=== PATIENT | female | born 1945 | race Caucasian/White ===

== ENCOUNTER → 2018-04-03 11:01 | Outpatient (BNVA) | payer MEDICARE, BC, SELFPAY | PROVIDERS: Visit Provider Orthopaedic Surgery | DX: M17.11 Unilateral primary osteoarthritis, right knee (principal); M25.462 Effusion, left knee | CPT/HCPCS: 20610; 99211; 99213; J1030; J7325 ==

== ENCOUNTER 2018-04-03 15:18 | Outpatient (REF) | payer MEDICARE, BC, SELFPAY | END 2018-04-03 15:38 | LOC: LBN 15:18 | PROVIDERS: PCP Family Medicine; Visit Provider Orthopaedic Surgery | DX: M25.562 Pain in left knee (principal); M25.462 Effusion, left knee | CPT/HCPCS: 87070; 87205 ==

== ENCOUNTER 2018-04-11 00:40 | Outpatient (CLI) | payer MEDICARE, BC, SELFPAY ==
--- NOTE | 2018-04-11 13:00 | DI.DEXA_ITS ---
SYMPTOMS/DIAGNOSIS: MENOPAUSAL STATE, Z78.0 DEXA SCAN: The scanogram reveals significant degenerative changes involving the lower lumbar spine. 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 No fracture is identified. For the left forearm a T score of -2.6 and a Z score of -0.4 indicate osteopenia and an increased fracture risk. For the left hip a T score of 0.1 and a Z score of 1.7 are within the normal range and represent a -1.8% interval decrease in mineralization when compared with the previous study of 09/11/08. For the lumbar spine a T score of 1.5 and a Z score of 3.7 are within the normal range and represent a +0.7% increase in mineralization when compared with the prior study of 09/11/08.
== END 2018-04-11 01:00 ==
PROVIDERS: PCP Family Medicine; Visit Provider Family Medicine
DX: M85.88 Other specified disorders of bone density and structure, other site (principal); Z78.0 Asymptomatic menopausal state
CPT/HCPCS: 77080

== ENCOUNTER → 2018-05-12 10:25 | Outpatient (BNVA) | payer MEDICARE, BC, SELFPAY | PROVIDERS: PCP Family Medicine; Referring Provider Family Medicine; Visit Provider Orthopaedic Surgery | DX: M25.462 Effusion, left knee (principal) | CPT/HCPCS: 20610; 99211; 99213 ==

== ENCOUNTER 2018-06-01 14:50 | Outpatient (REF) | payer MEDICARE, BC, SELFPAY ==
[2018-06-01 15:25] LABS: TSH (W/Ref FT4) 2.85 uIU/mL (0.358-3.74)
== END 2018-06-01 15:10 ==
LOC: NCHCN 14:50
PROVIDERS: PCP Family Medicine; Visit Provider Family Medicine
DX: E03.9 Hypothyroidism, unspecified (principal)
CPT/HCPCS: 84443

== ENCOUNTER 2018-06-29 12:00 | Outpatient (REF) | payer MEDICARE, BC, SELFPAY ==
[2018-06-29 18:44] LABS: Hemoglobin A1C 5.6 % (4.5-6.2)
[2018-07-03 09:29] LABS: Hepatitis C Ab w Rflx HCV PCR Negative (NEGAT)
== END 2018-06-29 12:20 ==
LOC: NCHCN 12:00
PROVIDERS: PCP Family Medicine; Visit Provider Family Medicine
DX: R73.01 Impaired fasting glucose (principal); Z11.59 Encounter for screening for other viral diseases
CPT/HCPCS: 86803; 83036

== ENCOUNTER 2018-08-21 14:47 | Outpatient (CLI) | payer MEDICARE, BC, SELFPAY ==
--- NOTE | 2018-08-21 09:47 | DI.RAD_ITS ---
SYMPTOM/DIAGNOSIS: COUGH, RO5 PA AND LATERAL CHEST: Comparison is made with 06/23/16. The heart size is normal. There are patchy densities seen in the right middle lobe suspicious for a pneumonia. No effusions are seen. The left lung appears clear. Degenerative changes are seen in the spine. IMPRESSION: Right middle lobe infiltrate.
== END 2018-08-21 15:07 ==
PROVIDERS: PCP Family Medicine; Visit Provider Family Medicine
DX: R05 Cough (principal)
CPT/HCPCS: 71046

== ENCOUNTER 2018-09-18 00:45 | Outpatient (CLI) | payer MEDICARE, BC, SELFPAY ==
--- NOTE | 2018-09-18 10:30 | DI.RAD_ITS ---
SYMPTOMS/DIAGNOSIS: F/U PNEUMONIA, J18.9 PA AND LATERAL CHEST: Comparison is made with [id number]. There are mild streaky densities seen in the right middle lobe with some improvement when compared with the previous exam. No new abnormalities are seen. There is no evidence of effusion. IMPRESSION: Some interval improvement of right middle lobe pneumonia.
== END 2018-09-18 01:05 ==
PROVIDERS: PCP Family Medicine; Visit Provider Family Medicine
DX: J18.9 Pneumonia, unspecified organism (principal)
CPT/HCPCS: 71046

== ENCOUNTER → 2018-10-03 10:45 | Outpatient (BNVA) | payer MEDICARE, BC, SELFPAY | PROVIDERS: PCP Family Medicine; Referring Provider Family Medicine; Visit Provider Orthopaedic Surgery | DX: M17.11 Unilateral primary osteoarthritis, right knee (principal) | CPT/HCPCS: 20610; 99211; 99212; J7325 ==

== ENCOUNTER 2018-10-16 00:42 | Outpatient (CLI) | payer MEDICARE, BC, SELFPAY ==
--- NOTE | 2018-10-16 11:00 | DI.RAD_ITS ---
SYMPTOMS/DIAGNOSIS: PNEUMONIA, J18.9 PA AND LATERAL CHEST: Comparison is made with [id number]. The previously noted right middle lobe infiltrate is no longer visible. The lungs appear clear. No new abnormalities are seen. Degenerative changes are again noted in the spine. IMPRESSION: Resolution of right middle lobe infiltrate.
== END 2018-10-16 01:02 ==
PROVIDERS: PCP Family Medicine; Visit Provider Family Medicine
DX: J18.9 Pneumonia, unspecified organism (principal)
CPT/HCPCS: 71046

== ENCOUNTER 2018-11-09 02:08 | Outpatient (CLI) | payer MEDICARE, BC, SELFPAY ==
[2018-11-09 11:14] LABS: Ferritin 27 ng/mL (8-388)
== END 2018-11-09 02:28 ==
PROVIDERS: PCP Family Medicine; Visit Provider Internal Medicine
DX: M25.50 Pain in unspecified joint (principal)
CPT/HCPCS: 36415; 82728

== ENCOUNTER → 2019-04-09 13:23 | Outpatient (BNVA) | payer MEDICARE, BC, SELFPAY | PROVIDERS: PCP Family Medicine; Referring Provider Family Medicine; Visit Provider Student in an Organized Health Care Education/Training Program | DX: M17.11 Unilateral primary osteoarthritis, right knee (principal); M25.462 Effusion, left knee | CPT/HCPCS: 99213 ==

== ENCOUNTER 2019-04-23 13:25 | Outpatient (REF) | payer MEDICARE, BC, SELFPAY ==
[2019-04-23 14:01] LABS: HCT 42.9 % (36.0-46.0); HGB 14.1 g/dL (12.0-15.5); Mean Corp. HGB Concentration 32.9 g/dL (32.0-36.0); Mean Corpuscular Hemoglobin 31.1 pg (27.0-33.0); Mean Corpuscular Volume 94.5 fL (80-95); Platelet Count 345 x1000/uL (130-400); RBC 4.54 m/cumm (4.00-5.20); RBC Distribution Width 13.5 % (11.7-14.6)
[2019-04-23 14:16] LABS: Glucose 89 mg/dL (70-100); TSH (W/Ref FT4) 3.73 uIU/mL (0.36-3.74)
== END 2019-04-23 13:45 ==
LOC: NCHCN 13:25
PROVIDERS: PCP Family Medicine; Visit Provider Family Medicine
DX: E03.9 Hypothyroidism, unspecified (principal); R73.09 Other abnormal glucose
CPT/HCPCS: 82947; 85027; 84443

== ENCOUNTER 2019-06-14 08:49 | Outpatient (CLI) | payer MEDICARE, BC, SELFPAY ==
--- NOTE | 2019-06-14 08:40 | HPE_ITS ---
Date of service: 06/14/19 Assessment and Plan Assessment and plan (1) Bursitis, prepatellar, left: Status: Acute Assessment and plan: Left prepatellar bursectomy. Details of surgery were discussed with patient as well as risks and pertinent anatomy. All questions were answered. History of Present Illness History of Present Illness Chief Complaint: Left knee mass Narrative: Marychuy is a 73-year-old female who comes in today for a preop history and physical for an excision of a prepatellar bursa of the left knee. She has been dealing with this for quite some time, and it does get in the way of her activities. She has had it aspirated by Dr. Humphrey twice, but it continues to return. It makes her have difficulty with kneeling. Overall she is happy with the appearance of her knee as well because of the swelling. Since she has failed conservative treatment with aspirations, and in fact has ruptured the bursal sac on her own by kneeling, it continues to return. She was offered an excision of the prepatellar bursa on her left knee, and she is anxious to proceed. Pertinent Surgical Information Marychuy has a history of ROBINSON and does use a c-pap machine. She also has a history of hypothyroidism for which she recieves hormone repla cement with levothyroxine. Patient denies history of hypertension, CVA, DC, angina, asthma, COPD, renal or liver disorders, hepatitis, bleeding disorders, diabetes, or immune disorders. No complications from anesthesia. Review of Systems Constitutional Constitutional: Denies fever(s) ENT Ears, Nose, Mouth, and Throat: Denies dizziness and Denies sore throat Cardiovascular Cardiovascular: Denies chest pain, Denies palpitations and Denies dyspnea Respiratory Respiratory: Denies cough and Denies dyspnea Gastrointestinal Gastrointestinal: Denies abdominal pain, Denies melena, Denies hematochezia, Denies diarrhea, Denies nausea and Denies vomiting Genitourinary Genitourinary: Denies hematuria and Denies dysuria Neurologic Neurologic: Denies dizziness Endocrine Endocrine: Denies palpitations [facility] Medical History (Updated 06/14/19 @ 15:57 by ERIK Blount) Acne vulgaris ADHD Anxiety Arthritis of both hands Chronic cough Depression Eczema Fibrocystic breast changes Fibromyalgia GERD (gastroesophageal reflux disease) History of cystocele (Acute) Hoarseness Hx of ovarian cancer 1983 Hypothyroidism Impaired fasting glucose Sciatica Surgical History History of arthroscopy of right knee (Acute) History of cataract extraction (Chronic) History of hysterectomy (Chronic) Right wrist fracture (Acute) s/p 3 surgeries including external fixation, and ORIF. Social History Smoking/Tobacco Use Status: Never Alcohol Intake: current Alcohol Intake frequency: 3 or more drinks per day Alcohol type: wine Drug use: Never Substance use type: does not use Current gender identity: female Do you feel safe at home: Yes Do you feel safe in your relationship?: Yes Meds Home Medications and Allergies Home Medications Medication Instructions Recorded Confirmed Type acyclovir 1 ea TOPICAL PRN 11/16/13 06/14/19 History amitriptyline 1 - 2 tab PO HS 11/16/13 06/14/19 History cetirizine [Zyrtec] 10 mg PO DAILY PRN 11/16/13 06/14/19 History duloxetine [Cymbalta] 20 mg PO DAILY 11/16/13 06/14/19 History fluticasone propionate 2 spry NS DAILY PRN 11/16/13 06/14/19 History glucosamine reddy 2KCl-chondroit 1 cap PO BID 11/16/13 06/14/19 History [Glucosamine & Chondroitin Cap] levothyroxine 75 mcg PO DAILY 11/16/13 06/14/19 History multivitamin 1 tab PO DAILY 11/16/13 06/14/19 History omega-3 fatty acids [Fish Oil] 1 tab PO BID 11/16/13 06/14/19 History omeprazole 20 mg PO DAILY 11/16/13 06/14/19 History calcium citrate-vitamin D3 1 tab PO DAILY 01/03/15 06/14/19 History [Citracal + D Maximum Caplet] ibuprofen [Advil Liqui-Gels] 1 - 2 cap PO PRN PRN 01/03/15 06/14/19 History lactobacillus combo no.11 1 ea PO DAILY cap.sprink 04/28/17 06/14/19 History [Probiotic] ascorbate calcium (vitamin C) 500 500 mg PO DAILY 04/09/19 06/14/19 History mg tablet ropinirole 2 mg tablet 2 mg PO HS 04/09/19 06/14/19 History Eucerin,Urea Cream, Salycilic Acid 1 appful TOPICAL PRN PRN 06/14/19 History (Compound Cream) ferrous sulfate 27 mg iron tablet 65 mg PO DAILY tab 06/14/19 06/14/19 History Allergies Allergy/AdvReac Type Severity Reaction Status Date / Time latex Allergy Severe Anaphylaxsi Unverified 06/14/19 09:22 s Exam [facility] Head: normocephalic and atraumatic General nose exam: no nasal discharge Throat: uvula midline and no uvular edema Other: soft palate rises symmetrically, no erythema Eyes Conjunctivae: conjunctivae normal Sclera: sclerae normal Pupils: PERRL Resp Effort & Inspection: normal respiratory effort Auscultation: clear to auscultation bilaterally and no wheezes Cardio Rate: regular rate Rhythm: regular rhythm Heart Sounds: S1 normal, S2 normal and no murmurs GI Palpation: soft, no hepatosplenomegaly and nontender Auscultation: normal bowel sounds
== END 2019-06-14 09:09 ==
PROVIDERS: PCP Family Medicine; Visit Provider Student in an Organized Health Care Education/Training Program
DX: M70.42 Prepatellar bursitis, left knee (principal); Z01.818 Encounter for other preprocedural examination
CPT/HCPCS: NC

== ENCOUNTER 2019-07-11 00:33 | Outpatient (CLI) | payer MEDICARE, BC, SELFPAY ==
--- NOTE | 2019-07-11 10:31 | DI.MAMMO_ITS ---
EXAM: MG MAMMO SCREENING CLINICAL HISTORY: SCREENING Z12.31. TECHNIQUE: Bilateral full field digital CC and MLO mammographic images were obtained with 3D tomosyn thesis and utilizing computer aided detection (CAD). COMPARISON: Available for comparison. FINDINGS: Masses/Architectural Distortion: There is a focal asymmetric density in the upper left breast seen on the mediolateral oblique view. No suspicious masses are seen in the right breast. Microcalcifications: No suspicious pleomorphic-type are seen. Skin Thickening/Nipple Retraction: None. IMPRESSION: 1. Asymmetric density in the upper left breast seen on the mediolateral oblique view. 2. Additional views of the left breast are requested. Ultrasound may be indicated at that time. BI-RADS Cat 0 - Assessment Incomplete: Need additional imaging evaluation Breast Density - Category C - Heterogeneously dense The mammogram demonstrates the patient's breast tissue is dense. Dense breast tissue is very common a nd is not abnormal but dense breast tissue can make it harder to find cancer on a mammogram. Also, de nse breast tissue may increase their breast cancer risk. This information about the [facility] was provided to the patient to raise their awareness. Use this report when you speak wi th the patient about their risks for breast cancer, which includes their family history. At that time , you may recommend for more screening tests (Ultrasound or MRI) as they might be useful based on the ir risk. A negative radiographic report should not delay biopsy if a dominant or clinically suspicious mass is present. Up to ten percent of cancers are not identified on mammography. A negative report may reinforce clinical impression. Adenosis and dense breasts may obscure an underlying neoplasm. False positive reports average 6 to 10%. Patient will receive a letter notifying them of these results.
== END 2019-07-11 00:53 ==
PROVIDERS: PCP Family Medicine; Visit Provider Family Medicine
DX: Z12.31 Encounter for screening mammogram for malignant neoplasm of breast (principal); R92.8 Other abnormal and inconclusive findings on diagnostic imaging of breast
CPT/HCPCS: 77063; 77067

== ENCOUNTER 2019-07-16 00:52 | Outpatient (CLI) | payer MEDICARE, BC, SELFPAY ==
--- NOTE | 2019-07-16 13:36 | DI.MAMMO_ITS ---
EXAM: MG MAMMO SCREEN CALL BACK UNI AND US BREAST LT LIMITED CLINICAL HISTORY: F/U ABNORMAL BREAST IMAGING ON MAMMO, ASYMMETRIC DENSITY UPPER LT BREAST ON MLO EW TECHNIQUE: Additional mammographic views of the left breast and left breast ultrasound performed us ing standard protocol. COMPARISON: No exams were available for comparison FINDINGS: Additional mammographic views of the left breast and left breast ultrasound are interpreted conjuncti on. These examinations were obtained to evaluate questionable area of asymmetric density seen on rec ent mammogram of July 11. Additional mammographic views show no evidence of a mass. Breast ult rasound shows no evidence of a mass or cyst in this region. IMPRESSION: No specific evidence of malignancy at this time. Follow-up unilateral left breast mammogram recommen ded in 6 months. Category 3, breast density category C.
== END 2019-07-16 01:12 ==
PROVIDERS: PCP Family Medicine; Visit Provider Family Medicine
DX: Z12.31 Encounter for screening mammogram for malignant neoplasm of breast (principal); R92.8 Other abnormal and inconclusive findings on diagnostic imaging of breast; N64.59 Other signs and symptoms in breast
CPT/HCPCS: 76642; 77063; 77067

== ENCOUNTER → 2019-07-19 09:12 | Outpatient (BNVA) | payer MEDICARE, BC, SELFPAY | PROVIDERS: PCP Family Medicine; Referring Provider Family Medicine; Visit Provider Student in an Organized Health Care Education/Training Program | DX: M70.62 Trochanteric bursitis, left hip (principal) | CPT/HCPCS: 20610; 99214; J1040 ==

== ENCOUNTER 2019-07-23 12:11 | Outpatient (REF) | payer MEDICARE, BC, SELFPAY ==
[2019-07-23 13:45] LABS: TSH (W/Ref FT4) 1.23 uIU/mL (0.36-3.74)
== END 2019-07-23 12:31 ==
LOC: NCHCN 12:11
PROVIDERS: PCP Family Medicine; Visit Provider Family Medicine
DX: E03.9 Hypothyroidism, unspecified (principal)
CPT/HCPCS: 84443

== ENCOUNTER 2020-01-14 01:38 | Outpatient (CLI) | payer MEDICARE, BC, SELFPAY ==
--- NOTE | 2020-01-14 | DI.MAMMO_ITS ---
EXAM: MG MAMMO DIAGNOSTIC UNI CLINICAL HISTORY: ABNL MAMMO, LT BREAST, 6-MO F/U, R92.8. TECHNIQUE: Craniocaudal and mediolateral oblique Full Field Digital Mammography views of the left br east with Computer Aided Diagnosis followed by Tomosynthesis. COMPARISON: Priors available for comparison. FINDINGS: Mammography/Tomosynthesis: Masses/Architectural Distortion: None seen. Microcalcifictions: No suspicious pleomorphic-type are seen. Skin Thickening/Nipple Retraction: None. IMPRESSION: 1. No evidence of malignancy is noted. 2. Unless there is more urgent need, follow-up screening mammography is recommended, as per [place] [employer] guidelines. 3. The findings were discussed with the patient on the date of the examination. BI-RADS Cat 1 - Negative Breast Density - Category C - Heterogeneously dense The mammogram demonstrates the patient's breast tissue is dense. Dense breast tissue is very common a nd is not abnormal but dense breast tissue can make it harder to find cancer on a mammogram. Also, de nse breast tissue may increase their breast cancer risk. This information about the result of the [facility] mogram report was provided to the patient to raise their awareness. Use this report when you speak wi th the patient about their risks for breast cancer, which includes their family history. At that time , you may recommend for more screening tests (Ultrasound or MRI) as they might be useful based on the ir risk. A negative radiographic report should not delay biopsy if a dominant or clinically suspicious mass is present. Up to ten percent of cancers are not identified on mammography. A negative report may reinforce clinical impression. Adenosis and dense breasts may obscure an underlying neoplasm. False positive reports average 6 to 10%. Patient will receive a letter notifying them of these results.
== END 2020-01-14 01:58 ==
PROVIDERS: PCP Family Medicine; Visit Provider Family Medicine
DX: R92.8 Other abnormal and inconclusive findings on diagnostic imaging of breast (principal); R92.2 Inconclusive mammogram
CPT/HCPCS: 77061; 77065; G0279

== ENCOUNTER 2020-03-27 15:08 | Outpatient (REF) | payer MEDICARE, BC, SELFPAY ==
[2020-03-27 18:19] LABS: HCT 42.1 % (36.0-46.0); MCHC 33.3 % (32.0-36.0); MCV 93.1 fL (80-95); MPV 9.8 fL (8.0-11.0); Platelet Count 381 10^3/uL (130-400); RBC 4.52 10^6/uL (3.93-5.22); RDW 12.8 % (11.7-14.6); RDW-SD 43.7 fL; WBC 5.49 10^3/uL (4.4-10.8)
[2020-03-27 19:16] LABS: BUN 9 mg/dL (7-18); CREATININE 0.73 mg/dL (0.55-1.02); Calcium 8.9 mg/dL (8.5-10.1); Chloride 104 mmol/L (98-107); Ferritin 83 ng/mL (8-252); Glucose 101 mg/dL (74-106); Potassium 4.8 mmol/L (3.5-5.1); Sodium 138 mmol/L (136-145); TSH (W/Ref FT4) 1.71 uIU/mL (0.36-3.74)
== END 2020-03-27 15:28 ==
LOC: NCHCN 15:08
PROVIDERS: PCP Family Medicine; Visit Provider Family Medicine
DX: R53.83 Other fatigue (principal); M25.552 Pain in left hip; E03.9 Hypothyroidism, unspecified; K21.9 Gastro-esophageal reflux disease without esophagitis; Z79.1 Long term (current) use of non-steroidal anti-inflammatories (NSAID)
CPT/HCPCS: 80048; 85027; 82728; 84443

== ENCOUNTER → 2020-09-26 12:58 | Outpatient (BNVA) | payer MEDICARE, BC, SELFPAY | PROVIDERS: PCP Family Medicine; Referring Provider Family Medicine; Visit Provider Physical Therapy Assistant | DX: Z12.11 Encounter for screening for malignant neoplasm of colon (principal) ==

== ENCOUNTER 2020-10-23 01:37 | Outpatient (CLI) | payer MEDICARE, BC, SELFPAY ==
--- NOTE | 2020-10-23 | DI.RAD_ITS ---
Exam(s) XR SACROILIAC JOINTS EXAM: XR SACROILIAC JOINTS CLINICAL HISTORY: RT SACROILIAC JOINT PAIN, M53.3. TECHNIQUE: 2D digital imaging was performed. COMPARISON: No exams were available for comparison FINDINGS: No obvious sacral fracture. Sacroiliac joints appear age-appropriate. No ankylosis. Advanced disc space narrowing incidentally noted L5-S1 level. Visualized hips appear unremarkable. No osseous les ions evident in the visualized pelvic bones. IMPRESSION: DATA REPOSITORY: RADIATION DOSE DELIVERED:
== END 2020-10-23 01:57 ==
PROVIDERS: PCP Family Medicine; Visit Provider Family Medicine
DX: M53.3 Sacrococcygeal disorders, not elsewhere classified (principal); M51.37 Other intervertebral disc degeneration, lumbosacral region
CPT/HCPCS: 72202

== ENCOUNTER 2020-10-31 13:45 | Outpatient (CLI) | payer MEDICARE, BC, SELFPAY ==
[2020-10-31 11:19] LABS: Source Nasal/Nares
[2020-10-31 15:38] LABS: COVID-19 PCR Negative (Negative)
== END 2020-10-31 13:46 | disposition home or self-care (01) ==
LOC: LBO 11-03 13:47
PROVIDERS: PCP Family Medicine; Visit Provider Surgery
DX: Z20.822 Contact with and (suspected) exposure to COVID-19 (principal); Z01.818 Encounter for other preprocedural examination
CPT/HCPCS: 87635

== ENCOUNTER 2020-11-03 06:17 | Day surgery (SDC) | payer MEDICARE, BC, SELFPAY ==
--- NOTE | 2020-11-03 06:29 | HPE_ITS ---
Date of service: 11/03/20 Time of Service: 06:29 Assessment and Plan Assessment and plan (1) Encounter for colorectal cancer screening: Status: Acute Assessment and plan: The patient is here for Colonoscopy pre-op. Her last screening was in 2009 and was unremarkable. She has no family history of colon cancer. She has not had any bowel habit changes. -Discussed colonoscopy bowel prep as well as the procedure. Discussed possible complications of the procedure to include bleeding, pain, perforation, missed small lesion/polyp, sore throat, aspiration and adverse reaction to the medications. Questions were answered to patient?s satisfaction. No guarantees were implied or given. History of Present Illness Narrative: 75 y/o female with history of anxeity, ADHD, depression GERD and ROBINSON presents for colonoscopy screening pre-op. Her last screening was in 2009, which was unremarkable. She denies a family history of colon cancer. She denies any changes in bowel habits stating that she often has normal bowel movements and sometimes she only passes small pieces of stool. Denies bloody or black tarry stools, diarrhea or constipation. Of note she reports occasional increase in flatus and bloating. She denies constitutional symptoms. Denies use of marijuana or any other recreational or illegal drugs. She denies chest pain, palpitations, dyspnea or dyspnea with exertion. She denies prior history or family history of adverse reactions or complications with anesthesia. The patient denies any history of stroke, [place], seizures, bleeding or clotting disorders. She denies having any implanted metal in her body. No changes in the patients health since she was seen on September 28. Review of Systems Cardiovascular Cardiovascular: Denies chest pain, Denies chest pain at rest, Denies irregular heart rhythm, Denies dyspnea and Denies dyspnea on exertion Respiratory Respiratory: Denies cough, Denies dyspnea and Denies dyspnea on exertion Gastrointestinal Gastrointestinal: Reports as per HPI Genitourinary Genitourinary: Denies dysuria, Denies urinary incontinence and Denies urinary urgency Endocrine Endocrine: Reports system reviewed and no additional complaints, except as documented Hematologic/Lymphatic Hematologic/Lymphatic: Denies easy bruising and Denies lymphadenopathy [facility] Medical History Acne vulgaris ADHD Anxiety Arthritis of both hands Chronic cough Depression Eczema Fatigue Fibrocystic breast changes Fibromyalgia GERD (gastroesophageal reflux disease) History of cystocele Hoarseness Hx of ovarian cancer 1983 Hypothyroidism Impaired fasting glucose ROBINSON (obstructive sleep apnea) Restless leg Sciatica Sinusitis Surgical History History of arthroscopy of right knee History of cataract extraction History of hysterectomy Right wrist fracture s/p 3 surgeries including external fixation, and ORIF. Social History Smoking/Tobacco Use Status: Never Smoking risk assessment performed?: Yes Alcohol Intake: current Alcohol Intake frequency: 3 or more drinks per day [place] type: wine Drug use: Never Substance use type: does not use Current gender identity: female Do you feel safe at home: Yes Do you feel safe in your relationship?: Yes Meds Allergies and Home Medications Allergies Allergy/AdvReac Type Severity Reaction Status Date / Time latex Allergy Severe Anaphylaxsi Unverified 10/29/20 11:28 s Home Medications Medication Instructions Recorded Confirmed Type acyclovir 1 ea TOPICAL PRN 11/16/13 10/29/20 History amitriptyline 1 - 2 tab PO HS 11/16/13 10/29/20 History cetirizine [Zyrtec] 10 mg PO DAILY PRN 11/16/13 10/29/20 History fluticasone propionate 2 spry NS DAILY PRN 11/16/13 10/29/20 History glucosamine reddy 2KCl-chondroit 1 cap PO BID 11/16/13 10/29/20 History [Glucosamine & Chondroitin Cap] multivitamin 1 tab PO DAILY 11/16/13 10/29/20 History omega-3 fatty acids [Fish Oil] 1 tab PO BID 11/16/13 10/29/20 History omeprazole 20 mg PO DAILY 11/16/13 10/29/20 History calcium citrate-vitamin D3 1 tab PO DAILY 01/03/15 10/29/20 History [Citracal + D Maximum Caplet] ibuprofen [Advil Liqui-Gels] 1 - 2 cap PO PRN PRN 01/03/15 10/29/20 History lactobacillus combo no.11 1 ea PO DAILY cap.sprink 04/28/17 10/29/20 History [Probiotic] ascorbate calcium (vitamin C) 500 500 mg PO DAILY 04/09/19 10/29/20 History mg tablet Eucerin,Urea Cream, Salycilic Acid 1 appful TOPICAL PRN PRN 06/14/19 10/29/20 History (Compound Cream) ferrous sulfate 27 mg iron tablet 65 mg PO DAILY tab 06/14/19 10/29/20 History Cannabidoil CBD PO 05/29/20 09/26/20 History duloxetine 20 mg capsule,delayed 30 mg PO DAILY cap 05/29/20 10/29/20 History release lactobacillus combination no.8 3 3,000 mmu cells PO DAILY 05/29/20 10/29/20 History billion cell capsule levothyroxine 75 mcg tablet 88 mcg PO DAILY tab 05/29/20 10/29/20 History lisdexamfetamine 30 mg capsule 30 mg PO DAILY 05/29/20 10/29/20 History magnesium 200 mg tablet 400 mg PO DAILY tab 05/29/20 10/29/20 History ropinirole 2 mg tablet 1 mg PO HS tab 05/29/20 10/29/20 History terbinafine HCl 250 mg tablet 250 mg PO DAILY 05/29/20 10/29/20 History bisacodyl 5 mg tablet,delayed 5 mg PO ONCE #4 tab 10/13/20 10/29/20 Rx release polyethylene glycol 3350 17 238 g PO ONCE #238 g 10/13/20 10/29/20 Rx gram/dose oral powder Exam Const General: cooperative, healthy appearing and comfortable Orientation: alert and oriented x3 HENMT Head: normocephalic and atraumatic Resp Effort & Inspection: normal respiratory effort Auscultation: clear to auscultation bilaterally Cardio Rate: regular rate Rhythm: regular rhythm Heart Sounds: no click, no gallops and no murmurs
--- NOTE | 2020-11-03 06:31 | W.COLOREPORT ---
Date of service: 11/03/20 Time of Service: 07:32 Colonoscopy Report Date of procedure: 11/03/20 Pre-op diagnosis general: Colon Cancer Screening Post-op diagnosis procedure note: other (Internal Hemorrhoids) Procedure: Colonoscopy Surgeon: Jennifer Heard Anesthesia Type: General:No Airway (ASA 2/ Shahbaz Gama CRNA) Estimated blood loss (mL): 0 Pathology: none sent Complications: None Disposition: same day Indications: The patient is here for Colonoscopy pre-op. Her last screening was in 2009 and was unremarkable. She has no family history of colon cancer. She has not had any bowel habit changes. -Discussed colonoscopy bowel prep as well as the procedure. Discussed possible complications of the procedure to include bleeding, pain, perforation, missed small lesion/polyp, sore throat, aspiration and adverse reaction to the medications. Questions were answered to patient?s satisfaction. No guarantees were implied or given. Prep: Miralax/Dulcolax Procedure Start Time: :32 Procedure End Time: 07:56 Retraction Time: 13 minutes Findings: Internal hemorrhoids Procedure Description: After informed consent was obtained the patient was taken to the procedure room and placed in a left decubitous position. Monitors were applied and a time out was done. The patients name, date of , procedure, allergies to medications and metal in their body was reviewed. The patient was then sedated. Once sedated and comfortable a rectal exam was done. External exam was normal. Internal exam revealed a normal sphincter tone and no palpable masses. The scope was then introduced and retro-flexed. Grade 2 internal hemorrhoids were noted. No polyps or masses were identified on retro-flexion. The scope was then advanced to the cecum without difficulty. The ileocecal vlave and appendiceal orifice were identified. The prep was good. The scope was then slowly retracted over 13 minutes back into the rectum. There were no polyps. There was no diverticulosis noted. The scope was removed and the patient was woken up and taken back to Same day surgery in stable condition. The patient tolerated the procedure well and there were no immediate complications. Follow up: The patient should follow up as needed if they develop changes in bowel habits or other new gastrointestinal complaints.
--- NOTE | 2020-11-03 06:32 | W.PM.DSUDISC ---
Discharge Plan Disposition Patient Disposition: HOME Condition: Good Discharge Details Reason For Visit: Colon Cancer Screening Attending Provider: Jennifer Heard Primary Care Provider: Flor Martin Home Meds and New Rx's Prescriptions: Continued ascorbate calcium (vitamin C) 500 mg tablet 500 mg PO DAILY RF: 0 ferrous sulfate 27 mg iron tablet 65 mg PO DAILY RF: 0 Probiotic 1 EACH capsule, sprinkle 1 ea PO DAILY RF: 0 levothyroxine 75 mcg tablet 88 mcg PO DAILY RF: 0 Vyvanse 30 mg capsule 30 mg PO DAILY RF: 0 duloxetine [Cymbalta] 20 mg capsule,delayed release(DR/EC) 30 mg PO DAILY RF: 0 ropinirole 2 mg tablet 1 mg PO HS RF: 0 terbinafine HCl 250 mg tablet 250 mg PO DAILY RF: 0 Adult Probiotic 3 billion cell capsule 3,000 mmu cells PO DAILY RF: 0 magnesium 200 mg tablet 400 mg PO DAILY RF: 0 Cannabidoil CBD PO RF: 0 amitriptyline 10 MG tablet 1 - 2 tab PO HS RF: 0 acyclovir 15 GM ointment 1 ea Topical PRN RF: 0 omeprazole 20 MG capsule,delayed release(DR/EC) 20 mg PO DAILY RF: 0 multivitamin 1 EACH capsule 1 tab PO DAILY RF: 0 fluticasone propionate 16 GM spray,suspension 2 spry NS DAILY PRNRF: 0 Glucosamine Sulf-Chondroitin 1 EACH capsule 1 cap PO BID RF: 0 Fish Oil 300 MG capsule 1 tab PO BID RF: 0 Zyrtec 10 MG capsule 10 mg PO DAILY PRNRF: 0 ibuprofen [Advil Liqui-Gel] 200 MG capsule 1 - 2 cap PO PRN PRNRF: 0 calcium citrate-vitamin D3 [Citracal + D Maximum] 1 EACH tablet 1 tab PO DAILY RF: 0 Eucerin,Urea Cream, Salycilic Acid (Compound Cream) 1 appful topical PRN PRNRF: 0 Discontinued polyethylene glycol 3350 17 gram/dose powder 238 g PO ONCE Qty: 238 RF: 0 bisacodyl [Dulcolax (bisacodyl)] 5 mg tablet,delayed release (DR/EC) 5 mg PO ONCE Qty: 4 RF: 0 Discharge Instructions Instructions: Hemorrhoids (DC) Additional Instructions: Findings: Internal hemorrhoids otherwise normal Follow up: as needed Please call if you develop: fevers >101.5 Nausea or Vomiting Abdominal pain that is not transient Rectal bleeding that is more then a tbsp A hard abdomen and inability to pass gas DAY SURGERY UNIT POST ENDOSCOPY INSTRUCTIONS Instructions for everyone who is given Anesthesia: For your safety, please do the following for the next 24 Hours: a. Do not drive or operate dangerous equipment b. Do not drink alcohol beverages or use any recreational drugs for the first 24 hours or while taking pain medications. The medications in your body may have a reaction that can be dangerous. c. Do not make any important decisions or sign any important papers 1. Generally there are no restrictions on your activity after a day or so has gone by, but you may feel a bit fatigued for a few days. 2. After you arrive home you may have a light meal and return to a normal diet as you can tolerate it without feeling sick to your stomach. 3. After surgery, you may feel pain or discomfort. This should be only transient, but if it persists please contact your doctor. 4. If there are any questions regarding the findings of your procedure, please feel free to contact your doctor. 6. If you are unable to contact your doctor with a problem, contact the hospital at [phone]. 7. Continue all your regular medications unless directed otherwise. I understand the above instructions and have no questions. Signature of Patient or Responsible Adult Escort Date/Time Name of Responsible Adult Escort Signature of Nurse Date/Time Activity:: Activity as Tolerated Diet:: As Tolerated Discharge Orders Discharge Orders: Discharge Order (Routine); Ordered 11/03/20 Ordered By: Jennifer Heard DS: Diagnosis Discharge Diagnosis (1) Encounter for colorectal cancer screening: Status: Acute
[2020-11-03 06:54] VITALS: BP 132/99; PULSE 90; RESP 20; TEMP 37.1; O2SAT 97
--- NOTE | 2020-11-03 06:59 | ANES.PREOP_ITS ---
General Info Date of Service Date Performed: 11/03/20 Height: 5 ft 2 in Weight: 53.9 kg Body Mass Index (BMI): 21.7 Surgical Procedure: Operation Date: 11/03/20 07:35 Proposed Procedures Side Surgeon p Colonoscopy Jennifer Heard MD Meds Allergies and Home Medications Allergies Allergy/AdvReac Type Severity Reaction Status Date / Time latex Allergy Severe Anaphylaxsi Unverified 11/03/20 06:42 s Home Medication Medication Instructions Recorded Fish Oil 1 tab PO BID 11/16/13 Glucosamine Sulf-Chondroitin 1 cap PO BID 11/16/13 Zyrtec 10 mg PO DAILY PRN 11/16/13 acyclovir 1 ea TOPICAL PRN 11/16/13 amitriptyline 1 - 2 tab PO HS 11/16/13 fluticasone propionate 2 spry NS DAILY PRN 11/16/13 multivitamin 1 tab PO DAILY 11/16/13 omeprazole 20 mg PO DAILY 11/16/13 calcium citrate-vitamin D3 1 tab PO DAILY 01/03/15 [Citracal + D Maximum] ibuprofen [Advil Liqui-Gel] 1 - 2 cap PO PRN PRN 01/03/15 Probiotic 1 ea PO DAILY cap.sprink 04/28/17 ascorbate calcium (vitamin C) 500 500 mg PO DAILY 04/09/19 mg tablet Eucerin,Urea Cream, Salycilic Acid 1 appful TOPICAL PRN PRN 06/14/19 (Compound Cream) ferrous sulfate 27 mg iron tablet 65 mg PO DAILY tab 06/14/19 Cannabidoil CBD PO 05/29/20 duloxetine 20 mg capsule,delayed 30 mg PO DAILY cap 05/29/20 release lactobacillus combination no.8 3 3,000 mmu cells PO DAILY 05/29/20 billion cell capsule levothyroxine 75 mcg tablet 88 mcg PO DAILY tab 05/29/20 lisdexamfetamine 30 mg capsule 30 mg PO DAILY 05/29/20 magnesium 200 mg tablet 400 mg PO DAILY tab 05/29/20 ropinirole 2 mg tablet 1 mg PO HS tab 05/29/20 terbinafine HCl 250 mg tablet 250 mg PO DAILY 05/29/20 Current Visit Medications: Current Medications Generic Name Dose Route Start Last Admin Trade Name Freq PRN Reason Stop Dose Admin Hyoscyamine Sulfate 0.125 mg 11/03/20 06:34 Hyoscyamine 0.125 Mg Sl/Oral/Chew SL DIRECTED PRN Ringer's Solution 1,000 mls @ 80 mls/hr 11/03/20 06:00 IV 11/30/20 23:59 IN[facility]ION [facility] IV Miscellaneous Supplies 1 each 11/03/20 06:00 Iv Access IV 11/30/20 23:59 DIRECTED FELISHA Ondansetron HCl 4 mg 11/03/20 06:34 Ondansetron 4 Mg/2 Ml Vial IVP Q4H PRN PRN Nausea / Vomiting Sodium Chloride 0 ml 11/03/20 06:00 Normal Saline Flush 10 Ml Syr IV 11/30/20 23:59 PRN PRN Sodium Chloride 0 ml 11/03/20 06:00 Normal Saline 10 Ml Vial IJ 11/30/20 23:59 DIRECTED PRN Sterile Water 0 ml 11/03/20 06:00 Water,Injection,Sterile 10 Ml Vial IJ 11/30/20 23:59 DIRECTED PRN PFSH Active Problems Active Problems: Problem Status Onset Code Encounter for colorectal cancer screening Z12.11, Z12.12 Trochanteric bursitis of left hip M70.62 Right lumbar radiculitis M54.16 Primary osteoarthritis of right knee M17.11 Bursitis, prepatellar, left M70.42 Medical History Medical History Acne vulgaris ADHD Anxiety Arthritis of both hands Chronic cough Depression Eczema Fatigue Fibrocystic breast changes Fibromyalgia GERD (gastroesophageal reflux disease) History of cystocele Hoarseness Hx of ovarian cancer 1983 Hypothyroidism Impaired fasting glucose ROBINSON (obstructive sleep apnea) Restless leg Sciatica Sinusitis Surgical History Surgical History History of arthroscopy of right knee History of cataract extraction History of hysterectomy Right wrist fracture s/p 3 surgeries including external fixation, and ORIF. Tobacco Smoking/Tobacco Use Status: Never Alcohol Alcohol Intake: current Alcohol intake frequency: 3 or more drinks per day Alcohol type: wine Substance Use Substance use: Never Substance use type: does not use Details: alohol: t-2 Vital Signs and Lab Results Vital Signs Most Recent Vital Signs in EMR: Most Recent Vital Signs Temp Pulse Resp BP Pulse Ox 37.1 C 90 20 132/99 H 97 11/03/20 06:54 05/10/21 06:54 11/03/20 06:54 11/03/20 06:54 11/03/20 06:54 Lab Results Blood Type / Crossmatch: No Data to Display Complete Blood Count: White Blood Count 5.49 10^3/uL (4.4-10.8) 03/27/20 11:23 03/27/20 Red Blood Count 4.52 10^6/uL (3.93-5.22) 03/27/20 11:23 03/27/20 Hemoglobin 14.0 g/dL (11.2-15.7) 03/27/20 11:23 03/27/20 Hematocrit 42.1 % (36.0-46.0) 03/27/20 11:23 03/27/20 Platelet Count 381 10^3/uL (130-400) 03/27/20 11:23 03/27/20 Complete Metabolic Panel: Sodium Level 138 mmol/L (136-145) 03/27/20 11:23 03/27/20 Potassium Level 4.8 mmol/L (3.5-5.1) 03/27/20 11:23 03/27/20 Chloride Level 104 mmol/L (98-107) 03/27/20 11:23 03/27/20 Carbon Dioxide Level 29.0 mmol/L (21.0-32.0) 03/27/20 11:23 03/27/20 Blood Urea Nitrogen 9 mg/dL (7-18) 03/27/20 11:23 03/27/20 Creatinine 0.73 mg/dL (0.55-1.02) 03/27/20 11:23 03/27/20 Calcium Level 8.9 mg/dL (8.5-10.1) 03/27/20 11:23 03/27/20 Albumin 4.1 g/dL (3.4-5.0) 03/03/13 10:03/03/13 Glucose Level 101 mg/dL (74-106) 03/27/20 11:23 03/27/20 Hemoglobin A1c 5.6 % (4.5-6.2) 06/29/18 11:53 06/29/18 Liver Function Panel: Alanine Aminotransferase (ALT/SGPT) 28 U/L (12-78) 03/03/13 10:07 03/03/13 Aspartate Amino Transf (AST/SGOT) 24 U/L (15-37) 03/03/13 10:07 03/03/13 Coagulation Panel: No Data to Display Cardiac Panel: No Data to Display Arterial Blood Gas: No Data to Display Venous Blood Gas: No Data to Display Pancreas Panel: No Data to Display Thyroid Panel: Thyroid Stimulating Hormone (TSH) 1.71 uIU/mL (0.36-3.74) 03/27/20 11:23 03/27/20 Infectious Disease: Coronavirus (COVID-19)(PCR) Negative (Negative) 10/31/20 10:11 10/31/20 Coronavirus 2019 Source Nasal/nares 10/31/20 10:11 10/31/20 Hepatitis C Antibody Negative (NEGAT) 06/29/18 11:53 06/29/18 Blood Cultures: No Data to Display Toxicology Panel: No Data to Display Anesthesia Assessment and Plan Anesthesia History Personal History: No History of Anesthesia Complications Family History: No Family History of Anesthesia Complications Exercise Tolerance Exercise Tolerance: Metabolic Equivalents>4 Pertinent Negatives Pertinent Negatives: No Symptoms of GERD Cardiac & Pulmonary Exam Cardiac Exam: Normal S1/S2 Heart Sounds Pulmonary Exam: Clear Bilateral Breath Sounds Airway Exam Known Difficult Airway: No Mallampati Class: 1 Mouth Opening: Normal (> 3cm) Thyromental Distance: Greater than 3 cm Neck Range of Motion: Full ROM Neck Circumference: Normal Teeth Condition: Normal Dentition ASA Classification ASA Score: ASA 2 Emergency Case?: No NPO Status NPO Status: NPO Clears >2 hours, Solids >8 hours Anesthesia Plan Anesthesia Technique: General Anesthesia Airway Planned: Natural Airway Monitors Used: Standard Monitors
[2020-11-03] MEDS: Lactated Ringers 1,000 ML 80 ML IV (07:05)
[2020-11-03 07:19] VITALS: BMI 21.7
[2020-11-03] MEDS: Ketorolac 30 MG/ML VIAL IVP (07:23)
[2020-11-03 08:00] VITALS: BP 122/65; PULSE 75; RESP 20; TEMP 36.1; O2SAT 95
--- NOTE | 2020-11-03 08:01 | W.ANESPOSTOP ---
Postoperative Evaluation Date, Time and Location Date Performed: 11/03/20 Time Performed: 08:01 Patient Location: Day Surgery Unit Vital Signs Most Recent Imported Vital Signs: Most Recent Vital Signs Temp Pulse Resp BP Pulse Ox 37.1 C 90 20 132/99 H 97 11/03/20 06:54 11/03/20 06:54 11/03/20 06:54 11/03/20 06:54 11/03/20 06:54 Most Recent Manually Entered Vital Signs: Adult Blood Pressure: 122/65 Heart Rate: 76 Respirations: 18 Oxygen Saturation (%): 94 Temperature (C): 36.5 C Pain Score (0-10 Scale): 3 Assessment Mental Status: Awake (Alert & Oriented to Patient Baseline) Airway and Respiratory Function: Patent airway with normal (patient baseline) respiratory exam Cardiovascular Function: Hemodynamically Stable Hydration Status: Adequately Hydrated Nausea & Vomiting: No Nausea or Vomiting Pain: Pain is tolerable/mild (<5/10) Peripheral Nerve Block: Patient did not receive a nerve block
[2020-11-03 08:03] VITALS: BP 122/65; PULSE 76; RESP 18; TEMPC 36.5; O2SAT 94
[2020-11-03 08:25] VITALS: BP 133/92; PULSE 72; RESP 20; TEMP 36.3; O2SAT 95
== END 2020-11-03 09:16 | disposition home or self-care (01) ==
PROVIDERS: PCP Family Medicine; Visit Provider Surgery
PROC: 0DJD8ZZ Inspection of Lower Intestinal Tract, Via Natural or Artificial Opening Endoscopic (ICD-10-PCS; CPT 45378; principal; 2020-11-03 07:30)
DX: Z12.11 Encounter for screening for malignant neoplasm of colon (principal); K64.1 Second degree hemorrhoids; K21.9 Gastro-esophageal reflux disease without esophagitis; F41.9 Anxiety disorder, unspecified; E03.9 Hypothyroidism, unspecified; G47.33 Obstructive sleep apnea (adult) (pediatric); R73.01 Impaired fasting glucose
CPT/HCPCS: G0121; J1885

== ENCOUNTER 2020-11-27 15:36 | Outpatient (CLI) | payer MEDICARE, BC, SELFPAY ==
--- NOTE | 2020-11-27 11:30 | DI.RAD_ITS ---
Exam(s) XR KNEE RT 4V AP,LAT,AMA,PAT EXAM: XR KNEE RT 4V AP,LAT,AMA,PAT CLINICAL HISTORY: eval R knee pain. TECHNIQUE: 2D digital imaging was performed. COMPARISON: CR RIGHT KNEE 3 VIEWS from 09/10/2014 CR XR CHEST 2V PA LATERAL from 10/16/2018 FINDINGS: Since the prior examination there has developed marked there have developed marked degenerative franco es. There is joint space narrowing, subchondral sclerosis and periarticular spurring present, most m arked in the femoral tibial joint. There is chronic deformity of the lateral tibial plateau which ma y represent old fracture. No acute fracture or dislocation is seen. There is a joint effusion. IMPRESSION: Marked osteoarthritis of the right knee. Significant progression of arthritic changes is seen since 2014. DATA REPOSITORY: RADIATION DOSE DELIVERED:
== END 2020-11-27 15:37 | disposition home or self-care (01) ==
LOC: DIORS 15:36
PROVIDERS: PCP Family Medicine; Referring Provider Family Medicine; Visit Provider Student in an Organized Health Care Education/Training Program
DX: M17.11 Unilateral primary osteoarthritis, right knee (principal); M25.461 Effusion, right knee
CPT/HCPCS: 20610; 73564; J1040

== ENCOUNTER 2020-12-26 15:56 | Outpatient (CLI) | payer MEDICARE, BC, SELFPAY ==
--- NOTE | 2020-12-26 | DI.RAD_ITS ---
Exam(s) XR FOOT LT COMPLETE EXAM: XR FOOT LT COMPLETE CLINICAL HISTORY: LT FOOT PAIN M79.672 TECHNIQUE: COMPARISON: No exams were available for comparison FINDINGS: Three views were obtained. There is severe hallux valgus deformity. There are moderate secondary de generative changes of the 1st MTP joint. There are also severe degenerative changes at the medial cu neiform 1st metatarsal articulation with very prominent subchondral sclerosis, marginal osteophyte fo rmation, and deformity of the adjacent articular surfaces. There is subluxation of the proximal phalange ease of 2nd and 3rd toes which appear to be associated with hammertoe deformities. There are very prominent hypertrophic degenerative changes of the IP samuel nts of the toes. IMPRESSION: RADIATION DOSE DELIVERED: Total DLP
== END 2020-12-26 16:16 ==
PROVIDERS: PCP Family Medicine; Visit Provider Family Medicine
DX: M79.672 Pain in left foot (principal)
CPT/HCPCS: 73630

== ENCOUNTER 2021-04-16 10:08 | Outpatient (CLI) | payer MEDICARE, BC, SELFPAY ==
--- NOTE | 2021-04-16 10:00 | DI.RAD_ITS ---
Exam(s) XR STANDING ALIGNMENT EXAM: XR STANDING ALIGNMENT CLINICAL HISTORY: TKA planning. TECHNIQUE: 2D digital imaging was performed. COMPARISON: CR XR KNEE RT 4V AP,LAT,AMA,PAT from 11/27/2020 FINDINGS: There advanced degenerative changes in the right knee with almost [id number] narrowing of the later al compartment and marginal osteophytes. Moderate narrowing of the medial compartment. Mild valgus deformity. Lesser degenerative changes are evident in the opposite-left knee. Both hips appear unre markable. Ankles unremarkable. Talar domes unremarkable. There are no significant osseous lesions. IMPRESSION: As above. Advanced degenerative changes in the right knee again noted. DATA REPOSITORY: RADIATION DOSE DELIVERED:
== END 2021-04-16 10:09 | disposition home or self-care (01) ==
LOC: DIORS 10:08
PROVIDERS: PCP Family Medicine; Referring Provider Family Medicine; Visit Provider Physician Assistant
DX: M17.11 Unilateral primary osteoarthritis, right knee (principal); Z01.818 Encounter for other preprocedural examination
CPT/HCPCS: 77073

== ENCOUNTER 2021-04-20 02:01 | Outpatient (CLI) | payer MEDICARE, BC, SELFPAY ==
[2021-04-20 09:15] LABS: HCT 40.6 % (36.0-46.0); HGB 13.2 g/dL (11.2-15.7); MCH 30.7 pg (27.0-33.0); MCHC 32.5 % (32.0-36.0); MCV 94.4 fL (80-95); MPV 9.1 fL (8.0-11.0); Platelet Count 393 10^3/uL (130-400); RDW 14.3 % (11.7-14.6); RDW-SD 49.3 fL; WBC 4.57 10^3/uL (4.4-10.8)
[2021-04-20 11:01] LABS: Anion Gap 9.7 mmol/L (3-11); BUN 11 mg/dL (7-18); CO2 28.3 mmol/L (21.0-32.0); CREATININE 0.8 mg/dL (0.55-1.02); Calcium 9.1 mg/dL (8.5-10.1); Chloride 104 mmol/L (98-107); Glucose 96 mg/dL (74-106); Potassium 4.3 mmol/L (3.5-5.1); Sodium 142 mmol/L (136-145)
[2021-04-20 11:06] LABS: Source Nasal/Nares
[2021-04-20 14:55] LABS: COVID-19 PCR Negative (Negative)
== END 2021-04-20 02:02 | disposition home or self-care (01) ==
LOC: LBO 02:01
PROVIDERS: PCP Family Medicine; Visit Provider Student in an Organized Health Care Education/Training Program
DX: M25.551 Pain in right hip (principal); M17.11 Unilateral primary osteoarthritis, right knee; Z20.822 Contact with and (suspected) exposure to COVID-19; Z01.818 Encounter for other preprocedural examination; Z01.812 Encounter for preprocedural laboratory examination
CPT/HCPCS: 36415; 80048; 85027; 87635

== ENCOUNTER 2021-04-22 10:02 | Day surgery (SDC) | payer MEDICARE, BC, SELFPAY ==
[2021-04-22] VITALS (9 sets, daily range): BP systolic 125–195; BP diastolic 84–109; PULSE 67–86; RESP 16–23; TEMP 36.2–36.8; O2SAT 96–100; BMI 20.7
--- NOTE | 2021-04-22 10:19 | W.PM.DS.N ---
Documented by User: Ann Duncan 04/22/21 10:26 DS: Diagnosis Discharge Diagnosis (1) Primary osteoarthritis of right knee: Status: Chronic Discharge Plan Disposition Patient Disposition: HOME Condition: Good Discharge Details Reason For Visit: Right knee DJD Attending Provider: Reymundo Joy Primary Care Provider: Flor Martin Home Meds and New Rx's Prescriptions: New celecoxib [Celebrex] 200 mg capsule 200 mg PO BID Qty: 30 RF: 0 aspirin 81 mg tablet,delayed release (DR/EC) 81 mg PO BID 30 Days Qty: 60 RF: 0 acetaminophen 500 mg tablet 500 mg PO Q6H PRN (Reason: pain) Qty: 60 RF: 2 docusate sodium [Colace] 100 mg capsule 100 mg PO BID Qty: 30 RF: 0 oxycodone 5 mg tablet 5 mg PO Q4H PRN (Reason: severe post-operative pain) Qty: 18 RF: 0 Continued ascorbate calcium (vitamin C) 500 mg tablet 500 mg PO DAILY RF: 0 Move Free Ultra Faster Comfort 216 mg tablet 216 mg PO DAILY RF: 0 ferrous sulfate 27 mg iron tablet 65 mg PO DAILY RF: 0 levothyroxine 75 mcg tablet 88 mcg PO DAILY RF: 0 Vyvanse 30 mg capsule 30 mg PO DAILY RF: 0 duloxetine [Cymbalta] 20 mg capsule,delayed release(DR/EC) 30 mg PO DAILY RF: 0 ropinirole 2 mg tablet 1 mg PO HS RF: 0 terbinafine HCl 250 mg tablet 250 mg PO DAILY RF: 0 Adult Probiotic 3 billion cell capsule 3,000 mmu cells PO DAILY RF: 0 Cannabidoil CBD PO RF: 0 magnesium 200 mg tablet 400 mg PO DAILY PRNRF: 0 amitriptyline 10 MG tablet 1 - 2 tab PO HS RF: 0 acyclovir 15 GM ointment 1 ea Topical PRN RF: 0 omeprazole 20 MG capsule,delayed release(DR/EC) 20 mg PO DAILY RF: 0 multivitamin 1 EACH capsule 1 tab PO DAILY RF: 0 fluticasone propionate 16 GM spray,suspension 2 spry NS DAILY PRNRF: 0 Fish Oil 300 MG capsule 1 tab PO BID RF: 0 Zyrtec 10 MG capsule 10 mg PO DAILY PRNRF: 0 calcium citrate-vitamin D3 [Citracal + D Maximum] 1 EACH tablet 1 tab PO DAILY RF: 0 Eucerin,Urea Cream, Salycilic Acid (Compound Cream) 1 appful topical PRN PRNRF: 0 Discontinued ibuprofen [Advil Liqui-Gel] 200 MG capsule 1 - 2 cap PO PRN PRNRF: 0 Discharge Instructions Additional Instructions: Total Knee Discharge Instructions Activity: The most important activity is to walk. You should try to take short walks a few times a day. It is important that when resting you work on keeping the knee straight. Avoid putting a pillow behind the knee as this will encourage flexion. Work on range of motion exercises as provided by Physical Therapy. If you have the [employer] bike coming, this will be your primary tool for exercise after the knee replacement. You should use it and follow the directions for the knee. Utilize the other exercises sparingly based on your symptoms. - Start outpatient physical therapy within 2 weeks. - You should wear the MANNY hose on both legs for 2 weeks. You may remove these at night. You may also use any compression sock in place of the MANNY hose. - Utilize [employer] to review exercises, see videos on exercises and obtain basic information pertaining to your surgery and your recovery. Dressing: Remove the Zafar wrap by 2 days after your surgery and put on the MANNY stocking given to you from the hospital. Keep the surgical dressing (underneath the ZAFAR wrap) in place for at least one week. After the first week it may be removed and replaced with light gauze and tape or nothing. The wound and dressing may get wet after 3 days but avoid soaking the dressing or otherwise it will need to be changed. Many people prefer covering the dressing with cling wrap (saran wrap) to minimize it from getting soaked. If it gets wet, just pat dry. If it starts to peel off then it will need to be changed. Medications: - You should take Tylenol and anti-inflammatory Celebrex as your primary pain control medications. If the Celebrex is too expensive or not covered, please call the office for another alternative (Advil/Ibuprofen or Naproxen/Aleve) - You have been prescribed a stronger pain medication Oxycodone for breakthrough pain, take as needed as prescribed. - You currently take a stomach acid reduction agent Omeprazole - which we will continue to help reduce stomach acid and reflux. - You will be taking Aspirin 81mg twice a day for DVT prevention unless instructed otherwise. - If you have constipation you should take Colace (which has been prescribed) or Miralax (which can be purchased [id number]). It takes most people 3-4 days to have a bowel movement. Follow-up: 2 weeks If you have any acute concerns or questions, please do not hesitate to contact the office at [phone]. You may contact Dr. Joy with any questions after hours through the hospital at [phone] or on his cell phone at [phone]. Referrals: Reymundo Joy MD [ [facility] STAFF PHYSICIAN] - Equipment/Supplies: Walker Activity:: Elevate Remove Dressings/Wound Care:: Do Not Remove Shower/Bathe:: Cover Diet:: As Tolerated Discharge Orders Discharge Orders: Discharge Order (Routine); Ordered 04/22/21 Ordered By: Reymundo Joy DS: Data Vitals/I&O Vitals and I&O: Intake & Output 04/21/21 04/21/21 04/22/21 11:59 23:59 11:59 Weight 52.163 kg [facility] Medical History Acne vulgaris ADHD Anxiety Arthritis of both hands Chronic cough Depression Eczema Fatigue Fibrocystic breast changes Fibromyalgia GERD (gastroesophageal reflux disease) History of cystocele Hoarseness Hx of ovarian cancer 1984 Hypothyroidism Impaired fasting glucose ROBINSON (obstructive sleep apnea) Restless leg Sciatica Sinusitis Surgical History History of arthroscopy of right knee History of cataract extraction History of hysterectomy Normal colonoscopy (~10/2020) Right wrist fracture s/p 3 surgeries including external fixation, and ORIF. Social History Smoking/Tobacco Use Status: Never Smoking risk assessment performed?: Yes Alcohol Intake: current Alcohol Intake frequency: 3 or more drinks per day Alcohol type: wine Drug use: Never Substance use type: does not use Current gender identity: female Do you feel safe at home: Yes Do you feel safe in your relationship?: Yes Documented by User: Reymundo Joy MD 04/22/21 15:24 Date of service: 04/22/21 Time of Service: 15:23 Discharge Plan Disposition Patient Disposition: HOME Condition: Good Discharge Details Reason For Visit: Right knee DJD Attending Provider: Reymundo Joy Primary Care Provider: Flro Martin Home Meds and New Rx's Prescriptions: New celecoxib [Celebrex] 200 mg capsule 200 mg PO BID Qty: 30 RF: 0 aspirin 81 mg tablet,delayed release (DR/EC) 81 mg PO BID 30 Days Qty: 60 RF: 0 acetaminophen 500 mg tablet 500 mg PO Q6H PRN (Reason: pain) Qty: 60 RF: 2 docusate sodium [Colace] 100 mg capsule 100 mg PO BID Qty: 30 RF: 0 oxycodone 5 mg tablet 5 mg PO Q4H PRN (Reason: severe post-operative pain) Qty: 18 RF: 0 Continued ascorbate calcium (vitamin C) 500 mg tablet 500 mg PO DAILY RF: 0 Move Free Ultra Faster Comfort 216 mg tablet 216 mg PO DAILY RF: 0 ferrous sulfate 27 mg iron tablet 65 mg PO DAILY RF: 0 levothyroxine 75 mcg tablet 88 mcg PO DAILY RF: 0 Vyvanse 30 mg capsule 30 mg PO DAILY RF: 0 duloxetine [Cymbalta] 20 mg capsule,delayed release(DR/EC) 30 mg PO DAILY RF: 0 ropinirole 2 mg tablet 1 mg PO HS RF: 0 terbinafine HCl 250 mg tablet 250 mg PO DAILY RF: 0 Adult Probiotic 3 billion cell capsule 3,000 mmu cells PO DAILY RF: 0 Cannabidoil CBD PO RF: 0 magnesium 200 mg tablet 400 mg PO DAILY PRNRF: 0 amitriptyline 10 MG tablet 1 - 2 tab PO HS RF: 0 acyclovir 15 GM ointment 1 ea Topical PRN RF: 0 omeprazole 20 MG capsule,delayed release(DR/EC) 20 mg PO DAILY RF: 0 multivitamin 1 EACH capsule 1 tab PO DAILY RF: 0 fluticasone propionate 16 GM spray,suspension 2 spry NS DAILY PRNRF: 0 Fish Oil 300 MG capsule 1 tab PO BID RF: 0 Zyrtec 10 MG capsule 10 mg PO DAILY PRNRF: 0 calcium citrate-vitamin D3 [Citracal + D Maximum] 1 EACH tablet 1 tab PO DAILY RF: 0 Eucerin,Urea Cream, Salycilic Acid (Compound Cream) 1 appful topical PRN PRNRF: 0 Discontinued ibuprofen [Advil Liqui-Gel] 200 MG capsule 1 - 2 cap PO PRN PRNRF: 0 Discharge Instructions Additional Instructions: Total Knee Discharge Instructions Activity: The most important activity is to walk. You should try to take short walks a few times a day. It is important that when resting you work on keeping the knee straight. Avoid putting a pillow behind the knee as this will encourage flexion. Work on range of motion exercises as provided by Physical Therapy. If you have the [employer] bike coming, this will be your primary tool for exercise after the knee replacement. You should use it and follow the directions for the knee. Utilize the other exercises sparingly based on your symptoms. - Start outpatient physical therapy within 2 weeks. - You should wear the MANNY hose on both legs for 2 weeks. You may remove these at night. You may also use any compression sock in place of the MANNY hose. - Utilize [employer] to review exercises, see videos on exercises and obtain basic information pertaining to your surgery and your recovery. Dressing: Remove the Zafar wrap by 2 days after your surgery and put on the MANNY stocking given to you from the hospital. Keep the surgical dressing (underneath the ZAFAR wrap) in place for at least one week. After the first week it may be removed and replaced with light gauze and tape or nothing. The wound and dressing may get wet after 3 days but avoid soaking the dressing or otherwise it will need to be changed. Many people prefer covering the dressing with cling wrap (saran wrap) to minimize it from getting soaked. If it gets wet, just pat dry. If it starts to peel off then it will need to be changed. Medications: - You should take Tylenol and anti-inflammatory Celebrex as your primary pain control medications. If the Celebrex is too expensive or not covered, please call the office for another alternative (Advil/Ibuprofen or Naproxen/Aleve) - You have been prescribed a stronger pain medication Oxycodone for breakthrough pain, take as needed as prescribed. - You currently take a stomach acid reduction agent Omeprazole - which we will continue to help reduce stomach acid and reflux. - You will be taking Aspirin 81mg twice a day for DVT prevention unless instructed otherwise. - If you have constipation you should take Colace (which has been prescribed) or Miralax (which can be purchased [id number]). It takes most people 3-4 days to have a bowel movement. Follow-up: 2 weeks If you have any acute concerns or questions, please do not hesitate to contact the office at [phone]. You may contact Dr. Joy with any questions after hours through the hospital at [phone] or on his cell phone at [phone]. Referrals: Reymundo Joy MD [ [facility] STAFF PHYSICIAN] - Equipment/Supplies: Walker Activity:: Elevate Remove Dressings/Wound Care:: Do Not Remove Shower/Bathe:: Cover Diet:: As Tolerated Discharge Orders Discharge Orders: Discharge Order (Routine); Ordered 04/22/21 Ordered By: Reymundo Joy DS: Summary Time Spent with Patient providing and/or coordinating discharge services: Less than 30 minutes Status at Discharge Functional status at discharge: uses cane/walker Overall status at discharge: patient is progressing back to baseline Mental Status: mental status grossly normal Speech and Movement: speech and movement normal Mood: congruent mood Affect: normal affect Exam Psych Mental Status: mental status grossly normal Speech and Movement: speech and movement normal Mood: congruent mood Affect: normal affect [facility] Medical History Acne vulgaris ADHD Anxiety Arthritis of both hands Chronic cough Depression Eczema Fatigue Fibrocystic breast changes Fibromyalgia GERD (gastroesophageal reflux disease) History of cystocele Hoarseness Hx of ovarian cancer 1983 Hypothyroidism Impaired fasting glucose ROBINSON (obstructive sleep apnea) Restless leg Sciatica Sinusitis Surgical History History of arthroscopy of right knee History of cataract extraction History of hysterectomy Normal colonoscopy (~10/2020) Right wrist fracture s/p 3 surgeries including external fixation, and ORIF. Social History Smoking/Tobacco Use Status: Never Smoking risk assessment performed?: Yes Alcohol Intake: current Alcohol Intake frequency: 3 or more drinks per day Alcohol type: wine Drug use: Never Substance use type: does not use Current gender identity: female Do you feel safe at home: Yes Do you feel safe in your relationship?: Yes
[2021-04-22] MEDS: Gabapentin 300 MG CAP PO (10:41)
[2021-04-22] MEDS: Celecoxib 200 MG CAP 400 MG PO (10:41)
[2021-04-22] MEDS: Acetaminophen 500 MG TAB 1000 MG PO (10:41)
[2021-04-22] MEDS: Lactated Ringers 1,000 ML 80 ML IV (10:58)
--- NOTE | 2021-04-22 11:09 | W.ANESPRE ---
General Info Date of Service Date Performed: 04/22/21 Height: 5 ft 2 in Weight: 51.5 kg Body Mass Index (BMI): 20.7 Surgical Procedure: Operation Date: 04/22/21 12:25 Proposed Procedures Side Surgeon p (R) Knee Total Arthroplasty Right Reymundo Joy MD Meds Allergies and Home Medications Allergies Allergy/AdvReac Type Severity Reaction Status Date / Time latex Allergy Severe Anaphylaxsi Unverified 04/22/21 10:27 s Home Medication Medication Instructions Recorded Fish Oil 1 tab PO BID 11/16/13 Zyrtec 10 mg PO DAILY PRN 11/16/13 acyclovir 1 ea TOPICAL PRN 11/16/13 amitriptyline 1 - 2 tab PO HS 11/16/13 fluticasone propionate 2 spry NS DAILY PRN 11/16/13 multivitamin 1 tab PO DAILY 11/16/13 omeprazole 20 mg PO DAILY 11/16/13 calcium citrate-vitamin D3 1 tab PO DAILY 01/03/15 [Citracal + D Maximum] ascorbate calcium (vitamin C) 500 500 mg PO DAILY 04/09/19 mg tablet Eucerin,Urea Cream, Salycilic Acid 1 appful TOPICAL PRN PRN 06/14/19 (Compound Cream) ferrous sulfate 27 mg iron tablet 65 mg PO DAILY tab 06/14/19 Cannabidoil CBD PO 05/29/20 duloxetine 20 mg capsule,delayed 30 mg PO DAILY cap 05/29/20 release lactobacillus combination no.8 3 3,000 mmu cells PO DAILY 05/29/20 billion cell capsule levothyroxine 75 mcg tablet 88 mcg PO DAILY tab 05/29/20 lisdexamfetamine 30 mg capsule 30 mg PO DAILY 05/29/20 ropinirole 2 mg tablet 1 mg PO HS tab 05/29/20 terbinafine HCl 250 mg tablet 250 mg PO DAILY 05/29/20 calcium fructoborate 216 mg tablet 216 mg PO DAILY 11/27/20 magnesium 200 mg tablet 400 mg PO DAILY PRN tab 11/27/20 acetaminophen 500 mg PO Q6H PRN #60 tab 04/22/21 aspirin 81 mg PO BID 30 Days #60 tab 04/22/21 celecoxib [Celebrex] 200 mg PO BID #30 cap 04/22/21 docusate sodium [Colace] 100 mg PO BID #30 cap 04/22/21 oxycodone 5 mg PO Q4H PRN #18 tab 04/22/21 Current Visit Medications: Current Medications Generic Name Dose Route Start Last Admin Trade Name Freq PRN Reason Stop Dose Admin Acetaminophen 1,000 mg 04/22/21 14:00 Acetaminophen 500 Mg Tab PO TID FELISHA Aspirin 81 mg 04/22/21 20:00 Aspirin E.C. 81 Mg Tabec PO BID FELISHA Celecoxib 200 mg 04/22/21 20:00 Celecoxib 200 Mg Cap PO BID FELISHA Docusate Sodium 100 mg 04/22/21 09:50 Docusate Sodium 100 Mg Cap PO BID PRN PRN Constipation Gabapentin 300 mg 04/22/21 22:00 Gabapentin 300 Mg Cap PO HS FELISHA Tranexamic Acid 1,000 mg/ 60 mls @ 360 mls/hr 04/22/21 06:00 Sodium Chloride IVPB 04/22/21 16:00 PREOP FELISHA Tranexamic Acid 1,000 mg/ 60 mls @ 360 mls/hr 04/22/21 06:00 Sodium Chloride IVPB 04/22/21 16:00 DIRECTED FELISHA Ringer's Solution 1,000 mls @ 80 mls/hr 04/22/21 06:00 04/22/21 10:58 IV 05/21/21 23:59 80 mls/hr INFUSION FELISHA Administration Cefazolin Sodium/Dextrose 2 gm in 50 mls @ 100 mls/hr 04/22/21 06:00 Ancef Duplex IVPB 05/21/21 23:59 PREOP FELISHA Cefazolin Sodium/Dextrose 1 gm in 50 mls @ 100 mls/hr 04/22/21 12:00 Ancef Duplex IVPB 04/23/21 04:29 Q8H FELISHA IV Miscellaneous Supplies 1 each 04/22/21 06:00 Iv Access IV 05/21/21 23:59 DIRECTED FELISHA Ondansetron HCl 4 mg 04/22/21 09:50 Ondansetron 4 Mg/2 Ml Vial IVP Q6H PRN PRN Nausea Oxycodone HCl 0 mg 04/22/21 09:50 Oxycodone 5 Mg Tab PO Q3H PRN PRN Pain Pantoprazole Sodium 40 mg 04/23/21 07:30 Pantoprazole 40 Mg Tabcr PO DAILY@0730 FELISHA Polyethylene Glycol 17 gm 04/22/21 09:50 Polyethylene Glycol 3350 17 Gm Packet PO BID PRN PRN Constipation Sodium Chloride 0 ml 04/22/21 06:00 Normal Saline Flush 10 Ml Syr IV 05/21/21 23:59 PRN PRN Sodium Chloride 0 ml 04/22/21 06:00 Normal Saline 10 Ml Vial IJ 05/21/21 23:59 DIRECTED PRN Sterile Water 0 ml 04/22/21 06:00 Water,Injection,Sterile 10 Ml Vial IJ 05/21/21 23:59 DIRECTED PRN PFSH Active Problems Active Problems: Problem Status Onset Code Encounter for colorectal cancer screening Z12.11, Z12.12 Trochanteric bursitis of left hip M70.62 Right lumbar radiculitis M54.16 Primary osteoarthritis of right knee M17.11 Bursitis, prepatellar, left M70.42 Medical History Medical History Acne vulgaris ADHD Anxiety Arthritis of both hands Chronic cough Depression Eczema Fatigue Fibrocystic breast changes Fibromyalgia GERD (gastroesophageal reflux disease) History of cystocele Hoarseness Hx of ovarian cancer 1984 Hypothyroidism Impaired fasting glucose ROBINSON (obstructive sleep apnea) Restless leg Sciatica Sinusitis Surgical History Surgical History History of arthroscopy of right knee History of cataract extraction History of hysterectomy Normal colonoscopy (~10/2020) Right wrist fracture s/p 3 surgeries including external fixation, and ORIF. Tobacco Smoking/Tobacco Use Status: Never Alcohol Alcohol Intake: current Alcohol intake frequency: 3 or more drinks per day Alcohol type: wine Substance Use Substance use: Never Substance use type: does not use Vital Signs and Lab Results Vital Signs Most Recent Vital Signs in EMR: Most Recent Vital Signs Temp Pulse Resp BP Pulse Ox 36.4 C L 86 20 157/99 H 96 04/22/21 10:16 04/22/21 10:16 04/22/21 10:16 04/22/21 10:16 04/22/21 10:16 Lab Results Blood Type / Crossmatch: No Data to Display Complete Blood Count: White Blood Count 4.57 10^3/uL (4.4-10.8) 04/20/21 09:00 04/20/21 Red Blood Count 4.30 10^6/uL (3.93-5.22) 04/20/21 09:00 04/20/21 Hemoglobin 13.2 g/dL (11.2-15.7) 04/20/21 09:00 04/20/21 Hematocrit 40.6 % (36.0-46.0) 04/20/21 09:00 04/20/21 Platelet Count 393 10^3/uL (130-400) 04/20/21 09:00 04/20/21 Complete Metabolic Panel: Sodium Level 142 mmol/L (136-145) 04/20/21 09:00 04/20/21 Potassium Level 4.3 mmol/L (3.5-5.1) 04/20/21 09:00 04/20/21 Chloride Level 104 mmol/L (98-107) 04/20/21 09:00 04/20/21 Carbon Dioxide Level 28.3 mmol/L (21.0-32.0) 04/20/21 09:00 04/20/21 Blood Urea Nitrogen 11 mg/dL (7-18) 04/20/21 09:00 04/20/21 Creatinine 0.8 mg/dL (0.55-1.02) 04/20/21 09:00 04/20/21 Estimated GFR/1.73 m2 >= 60.00 (mL/min/1.73m2) 04/20/21 09:00 04/20/21 Calcium Level 9.1 mg/dL (8.5-10.1) 04/20/21 09:00 04/20/21 Glucose Level 96 mg/dL (74-106) 04/20/21 09:00 04/20/21 Liver Function Panel: No Data to Display Coagulation Panel: No Data to Display Cardiac Panel: No Data to Display Arterial Blood Gas: No Data to Display Venous Blood Gas: No Data to Display Pancreas Panel: No Data to Display Thyroid Panel: No Data to Display Infectious Disease: Coronavirus (COVID-19)(PCR) Negative (Negative) 04/20/21 09:52 04/20/21 Coronavirus 2019 Source Nasal/Nares 04/20/21 09:52 04/20/21 Blood Cultures: No Data to Display Toxicology Panel: No Data to Display Anesthesia Assessment and Plan Anesthesia History Personal History: No History of Anesthesia Complications Family History: No Family History of Anesthesia Complications Exercise Tolerance Exercise Tolerance: Metabolic Equivalents>4 Pertinent Negatives Pertinent Negatives: No Symptoms of GERD, No Major Cardiovascular Symptoms or Complaints, No Major Pulmonary Symptoms or Complaints and No History of CVA/TIA Cardiac & Pulmonary Exam Cardiac Exam: Normal S1/S2 Heart Sounds Pulmonary Exam: Clear Bilateral Breath Sounds Airway Exam Known Difficult Airway: No Mallampati Class: 1 Mouth Opening: Normal (> 3cm) Thyromental Distance: Greater than 3 cm Neck Range of Motion: Full ROM Neck Circumference: Normal Teeth Condition: Normal Dentition ASA Classification ASA Score: ASA 2 Emergency Case?: No NPO Status NPO Status: NPO Clears >2 hours, Solids >8 hours Anesthesia Plan Resuscitation Status: Full Code Anesthesia Technique: Spinal Anesthesia Airway Planned: Natural Airway Pain Management: Surgeon and patient request nerve block Monitors Used: Standard Monitors
--- NOTE | 2021-04-22 11:40 | W.ANESNERVE ---
Nerve Block Single Injection Procedure Date and Time Date Performed: 04/22/21 Procedure Start: : Location Where Procedure Performed Procedure Location: Day Surgery Unit Reason Performed: Postoperative Analgesia Requesting Provider: Reymundo Joy Timeout Performed Timeout Performed: Yes Monitoring Used ECG, Blood Pressure, SpO2 and See EMR for corresponding vital signs Sterility Sterility: Hand Hygiene, Surgical Cap, Surgical Mask and Chlorhexidine Sedation Given During Procedure Sedation Given (Indicate Dose Given): Versed IV Dose:: 2 mg Patient Mental Status Patient Mental Status: Sedate with meaningful communication Nerve Block 1st Nerve Block: Laterality: Right Block Type: Adductor Canal Needle / Catheter Used: 120mm SonoPlex II Local Anesthetic Bolus (Indicate Dose Given): Lidocaine used for local infiltration of skin, Injected in 3-5ml increments after negative blood aspiration and Bupivacaine 0.25% Dose:: 15 ml Additives (Indicate Dose Given): None Ultrasound: Sterile probe cover and gel used Ultrasound Image Saved?: Yes Nerve Stimulator: Not Used Paresthesia: None Procedure Tolerated: No Complications Procedure Outcome: Successful Performed By: Rufino Frederick Supervised By: Pam Tran
[2021-04-22] MEDS: ceFAZolin 2 GM/50 ML BAG IVPB (11:55)
[2021-04-22] MEDS: Bupivacaine 0.25% Pres-Free 30 ML VIAL (13:30)
[2021-04-22] MEDS: Ketorolac 30 MG/ML VIAL (13:30)
[2021-04-22] MEDS: Normal Saline 20 ML VIAL (13:30)
--- NOTE | 2021-04-22 15:25 | W.ANESPOSTOP ---
Postoperative Evaluation Date, Time and Location Date Performed: 04/22/21 Time Performed: 15:25 Patient Location: Day Surgery Unit Vital Signs Most Recent Imported Vital Signs: Most Recent Vital Signs Temp Pulse Resp BP Pulse Ox 36.5 C 72 16 150/96 H 100 04/22/21 15:17 04/22/21 15:17 04/22/21 15:17 04/22/21 15:17 04/22/21 15:17 Pain Score Most Recent Pain Score: Most Recent Pain Score Pain Level 0 04/22/21 15:17 Assessment Mental Status: Awake (Alert & Oriented to Patient Baseline) Airway and Respiratory Function: Patent airway with normal (patient baseline) respiratory exam Cardiovascular Function: Hemodynamically Stable Hydration Status: Adequately Hydrated Nausea & Vomiting: No Nausea or Vomiting Pain: Pt. Denies Any Pain Peripheral Nerve Block: Regional nerve block not resolved at time of post operative discharge
--- NOTE | 2021-04-22 15:50 | IN_ITS ---
Date of service: 04/22/21 Time of Service: 15:50 PT Notes Visit Reasons: Right knee DJD Physical Therapy Inpatient Initial Evaluation Date: 04/22/2021 Referring Doctor: ERIK Blount PT Orders: PT CONSULT: Status post Ortho surgery. Status post right TKA. Precautions: Fall. Standard. WBAT on right LE with AD. Patient Profile/Admitting Diagnosis: Marychuy is a 75-year-old female with degenerative joint disease of the right knee and is status post right total knee arthroplasty on postoperative day 0. PMHX: Medical History Acne vulgaris ADHD Anxiety Arthritis of both hands Chronic cough Depression Eczema Fatigue Fibrocystic breast changes Fibromyalgia GERD (gastroesophageal reflux disease) History of cystocele Hoarseness Hx of ovarian cancer 1984 Hypothyroidism Impaired fasting glucose ROBINSON (obstructive sleep apnea) Restless leg Sciatica Sinusitis Surgical History History of arthroscopy of right knee History of cataract extraction History of hysterectomy Normal colonoscopy (~10/2020) Right wrist fracture s/p 3 surgeries including external fixation, and ORIF. Social History/Home Situation: Lives with in a multilevel home with 2 steps to enter without rails and with 15 steps to the second floor of the house where their bedroom is. Independent with all aspects of ADLs prior to surgery. Loves to play tennis. Equipment Owned/DME: None Subjective: Agreeable to PT consult. Amazed at how well she is moving right now and just reports 1?2/10 pain in the back of the right knee. Objective: General Observation: RU wraps to right LE. Cryocuff to right knee. TEDS in the left leg. Mental Status: Alert and oriented as to person, place, time, and purpose. Able to pay attention, focus, and respond appropriately. Pain: 1?2/10 in posterior right knee ROM: Right Lower Extremity: Hip flexion WFL. Hip abduction WFL. Knee flexion 20 degrees 200 degrees. Knee extension -20 degrees ankle dorsiflexion WFL. Ankle plantarflexion WFL. Left Lower Extremity: Hip flexion WFL. Hip abduction WFL. Knee flexion WFL. Ankle dorsiflexion WFL. Ankle plantarflexion WFL. Strength: Right Lower Extremity: Hip flexors 4/5. Hip abductors 4/5. Knee flexors 3-/5. Knee extensors 3-/5. Ankle dorsiflexors 5/5. Ankle plantarflexors 5/5. Left Lower Extremity: Hip flexors 5/5. Hip abductors 5/5. Knee flexors 5/5. Knee extensors 5/5. Ankle dorsiflexors 5/5. Ankle plantarflexors 5/5. Bed Mobility/Transfers: Rolling supervision Supine to sit supervision Sit to supine supervision Sit to stand standby assist with front wheeled walker Stand to sit standby assist with front wheeled walker Bed to reclining chair standby assist with front wheeled walker Reclining chair to bed standby assist with front wheeled walker Gait: Instructed patient with level surface ambulation of 150 feet feet requiring standby assist using front wheeled walker. Cathy decreased. Cueing provided for safe and correct gait pattern and for maximizing knee extension on the right side and mid stance. Denies headache, chest pain, and dizziness throughout session. Step through gait pattern. Stairs: Able to negotiate 6 x 4 inch steps and four 6 inch steps while holding onto 1 rail and holding onto a single-point cane with the other hand with step to gait pattern requiring only standby assist with no report of increased pain in the right knee. Balance: Static Sitting: Normal Dynamic Sitting: Normal Static Standing: Fair Dynamic Standing: Fair Special Tests: Mobility Limitations Standardized Measure [facility] 6 clicks Basic Mobility Inpatient Short Form: Raw Score: 23 CMS Score: 11 Informed Consent/Education: Patient instructed in purpose of PT consult. Packet containing right TKA exercise protocol has been given to patient. Education and training on initial set of exercises that can be done at home have been completed with patient. Assessment: Marychuy requires the use of a front wheel walker for all mobility ADL performance to reduce fall risk and maximize independence. We will have the support of and family as she recovers at home. Demonstrates good mastery with stair negotiation techniques. Patient presents with clinical signs and symptoms consistent with current/admitting diagnoses that have resulted to mobility limitations, gait instability, generalized weakness, and impairment of motor control as demonstrated by the following impairment level findings: 1. Decreased strength to right knee major muscle groups 2. Impaired standing balance 3. Limitation of joint range of motion in right knee Impairments are contributing to the following functional limitations: 1. Inability to safely ambulate without assistive device 2. Increase completion time for mobility ADL performance 3. Increased fall risk Patient is assessed as a 27062 moderate complexity based on the following: History: 75-year-old female with impairment level findings, functional limitations, and past medical history as indicated above Examination: Demonstrable impairment in strength, balance, and mobility level with underlying impairments and functional limitations as documented above Presentation: Evolving Decision Makin moderate complexity Goals: N/A. PT evaluation and 1-2 treatment sessions only for functional mobility training using recommended AD and for HEP instruction. Plan of Care/Treatment Plan: N/A. PT evaluation and 1-2 treatment session only for functional mobility training using recommended AD and for HEP instruction. DISCHARGE RECOMMENDATIONS: Home when medically cleared by orthopedic surgeon. Outpatient PT services facilitate return to previous mobility level in the community and to recreational activity participation without an assistive device. TREATMENT CODE/TIME: 81203 x 20 minutes, 67951 x 11 minutes beginning at 15:50 PM. Thank you for the opportunity to participate in the care of this patient. Maryan Abebe PT, DPT, CLT [facility] [place], [place]
--- NOTE | 2021-04-22 21:30 | ROE_ITS ---
Date of service: 04/22/21 Time of Service: 13:31 Operative Note Operative Note DATE OF PROCEDURE: 04/22/21 PRE-OP DIAGNOSIS: Right Knee Arthritis with Valgus Deformity POST-OP DIAGNOSIS: same PROCEDURE: Right Total Knee Arthroplasty with Intraoperative Navigation SURGEON: Reymundo Joy CELL OPERATION SUPERVISOR: Joel Pulliam ANESTHESIA TYPE: Spinal Refer to Anesthesia Record ESTIMATED BLOOD LOSS: 100 PATHOLOGY: none sent TOURNIQUET TIME: 32 COMPLICATIONS: None Patient was transported to: PACU Patient's condition: stable Implants: 1. Depuy Attune Posterior Stabilized Femoral Component, Size 6 Narrow 2. Depuy Attune Rotating Platform Tibial Component, Size 5 3. Depuy Attune 6x7mm RP/PS Poly 4. Depuy Attune Patellar Component, Size 35 Indications: I have seen Marychuy in clinic for symptoms of knee arthritis, confirmed with radiographic findings. She has exhausted nonoperative methods and was having significant limitations in daily function and desired better function and less pain. I discussed the technical details of a knee replacement. I explained the risks of the procedure to include, but not limited to, bleeding, infection, pain, stiffness, fracture, damage to nerves and vessels, damage to muscles and tendons, loosening, need for repeat procedure, blood clot and cardiopulmonary demise. Despite these risks, Marychuy elected to proceed. Findings: There was significant signs of arthritis throughout the knee with significant posterolateral wear and valgus deformity. Procedure Description: Marychuy was greeted in the preoperative holding area where the correct side was identified and marked. The consent was reviewed with the patient and signed. The history and physical was updated. All questions were answered. Preoperative mediacations were administered: Acetaminophen 1000mg, Celebrex 400mg, and Gabapentin 300mg. An adductor canal block was then administered by the anesthesia team in the PACU. Marychuy was taken back to the operating room. A spinal anesthestic was then administered. The patient was placed into the supine position on the operating room table. A nonsterile tourniquet was placed high onto the leg but only used for cementing. Posts were placed for positioning during the procedure. All bony prominences were well padded. Prophylactic antibiotics in the form of Cefazolin were administered. 1g of Tranxemic Acid was given intravenously within 30 minutes of incision. The right leg was then prepped with Chloraprep and draped in a standard fashion with impervious stockinette and extremity drape with Iodine impregnated skin protection. A timeout to confirm correct identity, side and site, procedure, allergies, anesthesia, and medical concerns was performed. With the knee in some flexion, a midline incision was made overlying the knee. Full thickness skin flaps were raised once the extensor mechanism was encountered. These were raised medially and laterally. Any bleeding was controlled with electrocautery. Once the extensor mechanism was fully exposed, a medial parapatellar arthrotomy was performed in a flexed position. All bleeding from the arthrotomy and the geniculate arteries was coagulated. A medial subperiosteal peel was performed with electrocautery to the midcoronal plane. The fat pad was removed while keeping the patellar tendon protected. The anterior distal femur synovium was removed for later visualization. The ACL and PCL were resected and the anterior horn of the lateral meniscus was transected. The knee was then flexed with the patella everted. Large osteophytes from the tibia were removed. Large osteophytes from the femur were removed. A single starting pin was then placed 1cm anterior to the PCL insertion and the notch in the direction of the femoral head. The OrthoAlign device was applied over the pin. It was oriented to be in line with the epicondylar axis and the trochlear groove. It was then pinned into place. The navigation computer was then turned on and calibrated. The distal femur cut was set at 0 degrees varus/valgus and 2.5 degrees flexion. The distal femur cutting guide then was positioned for a 9mm cut. The distal femur was cut with an oscillating saw while protecting the soft tissues. The tibia was then addressed. The OrthoAlign device was placed over the tibial tubercle and medial tibia and secured into position. Once again, OrthoAlign was calibrated and then set for a 0 degree varus/valgus cut and 3 degrees of posterior slope. With this locked into position, the cut thickness stylus was used to assess cut thickness. The lateral side, most involved side, was set for a 2mm cut. This was then held in position and pinned into place with 2 additional pins and a cross pin for stability. The medial and lateral cinthia ateral ligaments were protected and the cut was performed. With this completed, it was assessed and noted to be of appropriate dimensions. The guide and OrthoAlign was removed. A spacer block was inserted and the knee was brought into extension. The 7mm spacer block provided full extension, without hyperextension and with stability of both the medial and lateral collateral ligaments was assessed. The pins from the femur and the tibia were then removed. The distal femur was then sized. The anterior stylus was placed onto the lateral ridge of the anterior femur. This indicated a size 6 narrow femur. The external rotation of the guide was adjusted to 3 degrees to match the epicondylar axis, perpendicular to [place]?s line. The 4-in-1 cutting guide was the placed. The posterior medial femur cut was evaluated and appeared of good thickness. The spacer block was inserted underneath the cutting guide and stability was confirmed in 90 degrees of flexion. An kelli wing was used to confirm appropriate position of the anterior cut to avoid notching. This cutting guide was ensured to be flush on the cut surface and then pinned into place with headed pins. While protecting the soft tissues, quad tendon, and collateral ligaments, the anterior and posterior cuts were performed with a saw. The central two pins were removed and the posterior and anterior chamfers were cut next. The notch-cutting guide was placed. This was pinned to lateralize the femoral component as much as possible while keeping it flush on the cut surface. This was then pinned into position. A reciprocating saw was used to make the notch cut. A rasp smoothed the cut surfaces. A trial posterior stabilized femoral component was then inserted, impacted down to the cut surfaces, and the lug hole s were drilled. A provisional trial tibial component was placed and the knee was brought through range of motion. There was noted to be excellent extension and flexion. There was no significant instability. The patella was tracking without thumbs. The tibial cut surface was fully exposed. The medial and lateral menisci were removed. The tibia was then sized as a 5. The tibia had been previously marked during trialing to correspond to the center of the tibial component to help with rotation. The trial was aligned to this joel, approximately rotated to the medial 1/3rd of the tibial tubercle. The trial was pinned into place. The tibia was prepared with a reamer and a keel punch. The knee was then brought into extension and the patella was measured as 22mm. Using the patellar clamp and cut guide, this was resected to a flat surface with at least 13mm of thickness remaining. The size 35 patella fit the best. This was oriented and then clamped into position. The lugs were drilled. The trial components were removed. The final components, except for the polyethylene were opened on the back table. The periosteal and capsular tissues, especially posteriorly, around the knee were then systematically injected with a periarticular cocktail consisting of 50cc 0.25% Marcaine, 30mg Ketorolac, 20cc of Exparal and 50cc of injectable saline. The tourniquet was then inflated to 275mmHg. The knee was thoroughly irrigated with a pulse lavage and dried. On the back table, with the implants opened, the cement was mixed. 2 batches of antibiotic laden medium viscosity cement were prepared with vacuum assistance. After the cement was ready a small amount was placed on to the back side of the tibial component at the keel. A small amount was placed onto the posterior flange of the femur. Cement was manual pressurized and impregnated into the cut surface of the tibia. The tibial component was then inserted into the cut surface and impacted into position. Excess cement was removed and the component was reimpacted. Again, excess cement was removed and our attention was then turned to the femur. The femoral cut surface was once again dried and cement was manually impacted into the cut surface. The femoral component was lined with the lug holes and impacted. Excess cement was removed. It was ensured to be down against the cut surface. The trial polyethylene was then inserted and the leg was brought out into full extension for the duration of the cement curing process, approximately 18min. Cement was lastly manually impacted into the cut surface of the patella and the patellar button was clamped into position and held. During this process attention was turned to the gutters of the knee and for all interfaces for any excess cement. After the cement had finally cured, approximately 18min, the clamp was removed from the patella and the knee was taken through range of motion. A size 7mm polyethylene component provided the best range of motion and stability with less than 2mm gapping with medial and lateral stress and full extension without significant hyperextension. The patella was tracking with a no-thumbs technique. The trial poly was removed and once again the knee was checked for any loose, excess, or errant cement. The poly component was then inserted into position after cleaning and drying the tibial tray. The capsule was then reapproximated with a No. 1 Vicryl at multiple locations. The capsule was finally closed with a No. 2 Stratafix, barbed suture. The tourniquet was then released and the arthrotomy appeared watertight without significant bleeding. The second dosing of 1g TXA was started. Deep tissues were then reapproximated with 0 Vicryl and 2-0 Vicryl. The skin was closed with a running 3-0 Monocryl in a subcuticular fashion. This was reinforced with skin glue. A Mepilex silver dressing was applied along with a [id number]-py-lnpri RU wrap. A CryoCuff was applied. Marychuy was transferred to the hospital bed without difficulty an suffering no apparent complication. Marychuy has a good prognosis. Physical therapy will start today and without restrictions, weight-bearing as tolerated. Aspirin 81mg BID will be used for DVT prophylaxis.
== END 2021-04-22 17:00 | disposition home or self-care (01) ==
PROVIDERS: PCP Family Medicine; Visit Provider Student in an Organized Health Care Education/Training Program
PROC: (CPT 27447; principal; 2021-04-22 12:15)
DX: M17.11 Unilateral primary osteoarthritis, right knee (principal); K21.9 Gastro-esophageal reflux disease without esophagitis; M79.7 Fibromyalgia; E03.9 Hypothyroidism, unspecified; G47.33 Obstructive sleep apnea (adult) (pediatric); R73.01 Impaired fasting glucose
CPT/HCPCS: 20985; 27447; C1776; 97162; 97530; J0131; J0690; J1885; J2250; J2405

== ENCOUNTER 2021-05-07 12:42 | Outpatient (CLI) | payer MEDICARE, BC, SELFPAY ==
--- NOTE | 2021-05-07 08:15 | DI.RAD_ITS ---
Exam(s) XR STANDING ALIGNMENT XR KNEE RT 1V EXAM: XR STANDING ALIGNMENT CLINICAL HISTORY: 1ST POST OP R TKA. TECHNIQUE: 2D digital imaging was performed. Standing AP views were performed from the pelvis throu gh the ankles. COMPARISON: CR XR STANDING ALIGNMENT from 04/16/2021 CR XR KNEE RT 1V from 05/07/2021 FINDINGS: There is a total right knee prosthesis. There are no abnormal bony lucencies. There are mild degene rative changes of the medial femoral tibial joint of the left knee. There is mild bilateral ankle lana int space narrowing. There is a mild overall leg length discrepancy at the level of the femoral head s with the right projecting approximately 5 millimeter superior to the left. Severe degenerative torrie nges are noted in the lumbar spine. IMPRESSION: Mild significant leg length discrepancy. Unremarkable right total knee prosthesis. DATA REPOSITORY: RADIATION DOSE DELIVERED:
== END 2021-05-07 12:43 | disposition home or self-care (01) ==
LOC: DIORS 12:43
PROVIDERS: PCP Family Medicine; Referring Provider Family Medicine; Visit Provider Student in an Organized Health Care Education/Training Program
DX: Z96.651 Presence of right artificial knee joint (principal); Z47.1 Aftercare following joint replacement surgery
CPT/HCPCS: 73560; 77073

== ENCOUNTER 2021-05-12 13:45 | Outpatient (REF) | payer MEDICARE, BC, SELFPAY ==
[2021-05-12 21:01] LABS: Ferritin 382 ng/mL (8-252); TSH (W/Ref FT4) 1.89 uIU/mL (0.36-3.74)
== END 2021-05-12 13:46 | disposition home or self-care (01) ==
LOC: NCHCN 13:45
PROVIDERS: PCP Family Medicine; Visit Provider Family Medicine
DX: E03.9 Hypothyroidism, unspecified (principal); G25.81 Restless legs syndrome
CPT/HCPCS: 82728; 84443

== ENCOUNTER → 2021-06-05 10:52 | Outpatient (BNVA) | payer MEDICARE, BC, SELFPAY | PROVIDERS: PCP Family Medicine; Referring Provider Family Medicine; Visit Provider Student in an Organized Health Care Education/Training Program | DX: Z47.1 Aftercare following joint replacement surgery (principal); Z96.651 Presence of right artificial knee joint ==

== ENCOUNTER 2021-07-07 01:22 | Outpatient (CLI) | payer MEDICARE, BC, SELFPAY ==
[2021-07-07] MEDS: Gadoterate meglumine 20 ML VIAL 10 ML IVP (14:03)
[2021-07-07] MEDS: Normal Saline Flush 10 ML SYR IVP (14:03)
--- NOTE | 2021-07-07 14:32 | DI.MRI_ITS ---
Exam(s) MR BRAIN WO/W EXAM: MR BRAIN WO/W CLINICAL HISTORY: DIZZINESS R42 TECHNIQUE: Multiplanar multisequence MRI of the brain was performed. Additional post contrast axial and coronal T1 weighted imaging is and MP rage images were obtained COMPARISON: No exams were available for comparison FINDINGS: The ventricular system is normal in appearance. There is an apparent posterior fossa arachnoid cyst. There are scattered areas of abnormal signal in periventricular white matter on T2 weighted and FLAIR images consistent with mild microvascular ischemic changes. No other signal abnormality identified in the brain.. The orbital and temporal bone structures appear intact as does the pituitary. Diffusion weighted imaging shows no evidence of infarction. Susceptibility weighted imaging shows no evidence of intracranial hemorrhage. There is normal flow void in the [place] vasculature. Post contrast imaging shows no evidence of a mass lesion or enhancing lesion in the brain. IMPRESSION: Normal brain MRI for age including post contrast imaging. DATA REPOSITORY:
== END 2021-07-07 01:42 ==
PROVIDERS: PCP Family Medicine; Visit Provider Nurse Practitioner Family
DX: R42 Dizziness and giddiness (principal)
CPT/HCPCS: 70553

== ENCOUNTER 2021-07-16 16:59 | Outpatient (REF) | payer MEDICARE, BC, SELFPAY ==
[2021-07-16 14:38] LABS: Anion Gap 8.6 mmol/L (3-11); BUN 15 mg/dL (7-18); CO2 26.4 mmol/L (21.0-32.0); CREATININE 0.7 mg/dL (0.55-1.02); Chloride 104 mmol/L (98-107); Glucose 92 mg/dL (74-106); Potassium 4.5 mmol/L (3.5-5.1); Sodium 139 mmol/L (136-145)
[2021-07-16 15:23] LABS: COMMENT (LAB VIEW ONLY) 32.59 mg/dL; Microalb ug/mg Crea 29.2 ug/mg Cr
== END 2021-07-16 17:00 | disposition home or self-care (01) ==
LOC: NCHCN 16:59
PROVIDERS: PCP Family Medicine; Visit Provider Family Medicine
DX: I10 Essential (primary) hypertension (principal)
CPT/HCPCS: 80048; 82043; 82570

== ENCOUNTER → 2021-07-22 09:44 | Outpatient (BNVA) | payer MEDICARE, BC, SELFPAY | PROVIDERS: PCP Family Medicine; Referring Provider Family Medicine; Visit Provider Student in an Organized Health Care Education/Training Program | DX: Z47.1 Aftercare following joint replacement surgery (principal); Z96.651 Presence of right artificial knee joint ==

== ENCOUNTER 2021-11-15 20:46 | Emergency (ER) | payer MEDICARE, BC, SELFPAY ==
[2021-11-15] VITALS (9 sets, daily range): BP systolic 126–156; BP diastolic 77–85; PULSE 70–155; RESP 14–23; TEMP 36.8–37; O2SAT 93–97
--- NOTE | 2021-11-15 20:45 | RT.EKG_ITS ---
APPROVED REPORT Exam: Resting ECG Reason for Exam: tachycardia Patient Location: E HR:75 bpm ECG Measurements Heart Rate 75 AXIS MD 166 P 41 QRSd 71 QRS 21 QT 375 T 54 QTc 419 Conclusion Sinus rhythm...normal P axis, V-rate 60- 99 Physician: no stemi, stable
--- NOTE | 2021-11-15 21:00 | DI.CT_ITS ---
Exam(s) CT CHEST/ABD/PEL WO EXAM: CT CHEST/ABD/PEL WO CLINICAL HISTORY: left flank pain (kid stone?) right epigastric pain. TECHNIQUE: Imaging Protocol: Axial computed tomography images with coronal and sagittal reformatted images were created and reviewed CONTRAST MATERIAL: Intravenous: Noncontrast due to [employer] shortage. Oral: / no COMPARISON: No exams were available for comparison FINDINGS: CHEST: Tracheobronchial tree: Patent where visualized. Mediastinum and Shauna: No dominant adenopathy or fluid collection. Pulmonary parenchyma: No consolidation or dominant measurable mass. Pleura: No effusion or pneumothorax. Lymph nodes: Within normal limits. Aorta: Thoracic portion non-dilated. Heart: Normal size. Bones: Prominent degenerative changes. No compression fractures. No lytic or blastic lesions. ABDOMEN: Liver: Normal density. No measurable mass. Gallbladder and biliary tract: No radiodense calculus or dilation. Pancreas: Normal density, no abnormal calcifications or inflammatory process. Spleen: Normal. Kidneys: Normal size, contour and axis. No radiodense stones or obstructive uropathy. No masses seen. Adrenal glands: No masses seen. Aorta: Abdominal portion non-dilated. Lymph nodes: Within normal limits. Soft tissues: Unremarkable. Surgical clips left anterior abdomen, left paraspinal region and left si de of pelvis. PELVIS: Bladder: Symmetric distention, no gross wall thickening. Bowel: Moderate quantity of stool. Food is seen in the stomach. Bowel not well evaluated due to lac k of contrast. No obstruction or bowel wall thickening. Peritoneal cavity: No ascites, collection or mesenteric inflammatory response. Bones: Degenerative changes and scoliosis. Apparent fusion at L4-5. Reproductive organs: Status post hysterectomy. IMPRESSION: No acute abnormality in the chest abdomen or pelvis.. RADIATION DOSE DELIVERED: 722.07mGy.cm Total DLP DATA REPOSITORY: All CT scans at this facility are submitted to the National Radiology Data Registry (NRDR) Dose Index Registry (DIR) with the [employer] ([employer]). RADIATION OPTIMIZATION: All CT scans at this facility use at least one of these dose optimization te chniques: automated exposure control; mA and/or kV adjustment per patient size (includes targeted exa ms where dose is matched to clinical indication); or iterative reconstruction.
[2021-11-15] MEDS: Normal Saline 500 ML IV (21:15)
[2021-11-15 21:19] LABS: Abs Immature Grans 0.02 10^3/uL (0.0-0.06); Absolute Basophil Count 0.06 10^3/uL (0.0-0.2); Absolute Eosinophil Count 0.44 10^3/uL (0.0-0.7); Absolute Lymphocyte Count 1.67 10^3/uL (1.2-3.4); Absolute Monocyte Count 0.64 10^3/uL (0.1-0.8); Absolute Neutrophil Count 3.05 10^3/uL (1.2-6.7); Eosinophils % 7.5; HCT 39.9 % (36.0-46.0); HGB 13.1 g/dL (11.2-15.7); Immature Grans % 0.3; Lymphocytes % 28.4; MCHC 32.8 % (32.0-36.0); MCV 95 fL (80-95); Monocytes % 10.9; Neutrophils % 51.9; Platelet Count 333 10^3/uL (130-400); RBC 4.22 10^6/uL (3.93-5.22); RDW 13.2 % (11.7-14.6); RDW-SD 45.9 fL; WBC 5.88 10^3/uL (4.4-10.8)
[2021-11-15 21:23] LABS: Bilirubin Negative (Negative); Blood Negative (Negative); Clarity Clear (Clear); Glucose Negative (Negative); Ketones Negative (Negative); Leukocyte Esterase Negative (Negative); Nitrite Negative (Negative); Specific Gravity 1.015 (1.005-1.025); Urobilinogen 0.2 EU/dL (Up TO 0.2)
[2021-11-15 21:33] LABS: ALT 29 U/L (14-59); AST 23 U/L (15-37); Alkaline Phosphatase 81 U/L (46-116); Anion Gap 8.7 mmol/L (3-11); BUN 11 mg/dL (7-18); Bilirubin, Total 0.3 mg/dL (0.2-1.0); CO2 26.3 mmol/L (21.0-32.0); CREATININE 0.9 mg/dL (0.55-1.02); Calcium 8.5 mg/dL (8.5-10.1); Chloride 99 mmol/L (98-107); Glucose 102 mg/dL (74-106); Lipase 65 U/L (73-393); Potassium 4.2 mmol/L (3.5-5.1); Sodium 134 mmol/L (136-145); Total Protein 7.2 g/dL (6.4-8.2); Troponin I < 50 ng/L (<or=60)
[2021-11-15] MEDS: Ketorolac 15 MG/ML VIAL IVP (22:21)
[2021-11-15] MEDS: MORPHine 4 MG/ML SYR IVP (22:22)
--- NOTE | 2021-11-15 22:23 | ED.GENADUL_ITS ---
Discharge Plan Disposition Patient Disposition: HOME Condition: Good Discharge Details Clinical Impression: Acute left flank pain Primary Care Provider: Flor Martin ED Provider: Mik Moe Home Meds and New Rx's Prescriptions: Continued ascorbate calcium (vitamin C) 500 mg tablet 500 mg PO DAILY Move Free Ultra Faster Comfort 216 mg tablet 216 mg PO DAILY lisinopril 10 mg tablet 10 mg PO DAILY ferrous sulfate 27 mg iron tablet 65 mg PO DAILY levothyroxine 75 mcg tablet 88 mcg PO DAILY Vyvanse 30 mg capsule 30 mg PO DAILY Label Comments: not taking duloxetine [Cymbalta] 20 mg capsule,delayed release(DR/EC) 30 mg PO DAILY ropinirole 2 mg tablet 2 mg PO HS terbinafine HCl 250 mg tablet 250 mg PO DAILY Label Comments: does not take Adult Probiotic 3 billion cell capsule 3,000 mmu cells PO DAILY Rx Instructions: administer with a meal Cannabidoil CBD PO Label Comments: ran out of drops and hasn't needed the rub magnesium 200 mg tablet 400 mg PO DAILY PRN Label Comments: not taking amitriptyline 10 MG tablet 1 - 2 tab PO HS acyclovir 15 GM ointment 1 ea Topical PRN omeprazole 20 MG capsule,delayed release(DR/EC) 20 mg PO DAILY multivitamin 1 EACH capsule 1 tab PO DAILY fluticasone propionate 16 GM spray,suspension 2 spry NS DAILY PRN Label Comments: 01/03/15 per pt she uses mostly in the winter. jw Fish Oil 300 MG capsule 1 tab PO BID Zyrtec 10 MG capsule 10 mg PO DAILY PRN calcium citrate-vitamin D3 [Citracal + D Maximum] 1 EACH tablet 1 tab PO DAILY acetaminophen 500 mg tablet 500 mg PO Q6H PRN (Reason: pain) Qty: 60 2RF ibuprofen [Advil] 200 mg Tablet 400 mg PO BID PRN pseudoephedrine HCl [Sudafed] 30 mg Tablet 60 mg PO QAM Eucerin,Urea Cream, Salycilic Acid (Compound Cream) 1 appful topical PRN PRN Discharge Instructions Instructions: Flank Pain (ED) Additional Instructions: At this time your CAT scan has returned and shows no significant abnormality. Your laboratory work-up is also very reassuring. I would recommend continued taking Tylenol and Motrin as needed for pain. Use a heating pad for your back for any muscle spasm. If you notice any worsening of your symptoms, or any new symptoms such as vomiting, diarrhea, fever, chills, shortness of breath, chest pain, numbness, weakness, or fainting , please return immediately to the emergency department for reevaluation. Please follow up with your primary care provider as soon as possible for reassessment and reevaluation. As always, it was a pleasure participating in your medical care today. Referrals: Flor Martin MD [Primary Care Provider] - Medical Decision Making 76-year-old female with a past medical history of depression, eczema, fibromyalgia, GERD, obstructive sleep apnea, previous ovarian cancer, presents today for evaluation of left flank pain for the last 2 days, and now right epigastric pain. Past surgical history is positive for hysterectomy. She denies any vomiting but does admit to nausea. She denies any dysuria or hematuria or increase in urinary frequency. She denies any cough, fever or chills. She denies any shortness of breath. She denies any chest heaviness or chest tightness. She denies any numbness tingling or weakness. No trauma. No other complaints at this time. Symptoms are made worse with movement. Patient did take some Motrin earlier today and this slightly improved her symptoms. Physical exam is unremarkable. No evidence of an acute surgical abdomen. No significant flank or CVA tenderness. No pain to McBurney's point, negative Leyva sign. Differential includes urinary tract infection, kidney stone, enteritis, less likely gallbladder pathology. Symptoms appear inconsistent with appendicitis. We will get a CT scan of the abdomen, rehydrate, evaluate for these concerning etiologies, monitor closely and reassess. 10:[address] scan results have returned negative for acute process per radiology. Laboratory work-up has returned is very reassuring. No white count, bandemia, or left shift. Electrolytes are stable, renal function excellent, urinalysis shows no WBCs, RBCs, or blood or other significant abnormalities. Troponin normal, lipase normal. Repeat exam shows no signs of an acute surgical abdomen. Patient feels significantly improved. With no signs of significant abnormality on exam or in work-up, I do feel that the patient is safe for discharge. Will recommend continued NSAIDs at home, hydration, and close follow-up. Discussed red flags which return. I have extensively reviewed the treatment plan and discharge instructions with the patient. I have addressed all patient concerns at this time. The patient was made aware of what symptoms to monitor for that would warrant a return to the emergency department. Discussed the plan with the patient, they demonstrate verbal understanding and agreement with our assessment and plan at this time. The documentation in this chart was dictated using [employer] dictation software. Please excuse any dictation errors. FINDINGS: Liver: Grossly unremarkable unenhanced liver. Gallbladder and bile ducts: Normal appearing gallbladder. No calcified gallstones. No biliary dilatation. Pancreas: Grossly unremarkable unenhanced pancreas. Spleen: Grossly unremarkable unenhanced spleen. Adrenal glands: Normal appearing adrenal glands. Kidneys and ureters: Grossly unremarkable unenhanced kidneys. No radiopaque urinary tract stones, hydronephrosis, or evidence of recent stone passage. Stomach and bowel: No oral contrast. Stomach partially distended with ingested material. No small bowel dilatation to suggest obstruction. Cecum located in the right mid abdomen suggesting free mobility on an independent mesentery. Otherwise normal-appearing colon. No evidence of diverticulitis or colitis. Appendix: Appendix not identified, obscured if present. Correlation with surgical history recommended. If there is clinical concern for acute appendicitis and the patient still has an appendix, additional evaluation would be recommended. Intraperitoneal space: No gross ascites or free air. Retroperitoneal space: Surgical clips in the anterior abdomen, left retroperitoneum, and along the left pelvic sidewall. Vasculature: Normal caliber abdominal aorta. Lymph nodes: No pathologically enlarged mesenteric, retroperitoneal, or pelvic sidewall lymph nodes. Urinary bladder: Normal appearing urinary bladder. Reproductive: Prior hysterectomy. Ovaries not identified, obscured if present. Correlation with surgical history recommended. Bones/joints: No acute fracture seen among the bones of the abdomen or pelvis. Small bilateral vestigial ribs at L1. Spinal degenerative change with discogenic degeneration, anterior osteophyte formation, and posterior osteophytic ridging at multiple levels. Grade 2 ante rolisthesis of L4 on L5, apparently fused in this position. Soft tissues: No significant ventral or inguinal hernia IMPRESSION: 1. No acute bowel pathology demonstrated. 2. No radiopaque urinary tract stones, hydronephrosis, or evidence of recent stone passage. Thank you for allowing us to participate in the care of your patient. Dictated and Authenticated by: Zain Mcclain MD 11/15/2021 10:24 PM Eastern Time ([place] & [place]) HPI General Date/Time Provider Initiated Documentation: 11/15/21 20:47 . HPI Narrative: 76-year-old female with a past medical history of depression, eczema, fibromyalgia, GERD, obstructive sleep apnea, previous ovarian cancer, presents today for evaluation of left flank pain for the last 2 days, and now right epigastric pain. Past surgical history is positive for hysterectomy. She denies any vomiting but does admit to nausea. She denies any dysuria or hematuria or increase in urinary frequency. She denies any cough, fever or chills. She denies any shortness of breath. She denies any chest heaviness or chest tightness. She denies any numbness tingling or weakness. No trauma. No other complaints at this time. Symptoms are made worse with movement. Patient did take some Motrin earlier today and this slightly improved her symptoms. Related Data Home Medications Medication Instructions Recorded Confirmed acyclovir 5 % topical ointment 1 ea topical PRN 11/16/13 11/15/21 amitriptyline 10 mg tablet 1 - 2 tab PO HS 11/16/13 11/15/21 cetirizine 10 mg capsule (Zyrtec) 10 mg PO DAILY PRN 11/16/13 11/15/21 fluticasone propionate 50 2 spry NS DAILY PRN 11/16/13 11/15/21 mcg/actuation nasal spray,suspension multivitamin 1 tab PO DAILY 11/16/13 11/15/21 omega-3 fatty acids 300 mg capsule 1 tab PO BID 11/16/13 11/15/21 (Fish Oil) omeprazole 20 mg capsule,delayed 20 mg PO DAILY 11/16/13 11/15/21 release calcium citrate 315 mg 1 tab PO DAILY 01/03/15 11/15/21 calcium-vitamin D3 6.25 mcg (250 unit) tablet (Citracal + Vitamin D Maximum) ascorbate calcium (vitamin C) 500 500 mg PO DAILY 04/09/19 11/15/21 mg tablet Eucerin,Urea Cream, Salycilic Acid 1 appful topical PRN PRN 06/14/19 11/15/21 (Compound Cream) ferrous sulfate 27 mg iron tablet 65 mg PO DAILY 06/14/19 07/22/21 Cannabidoil CBD PO 05/29/20 07/22/21 duloxetine 20 mg capsule,delayed 30 mg PO DAILY 05/29/20 11/15/21 release (Cymbalta) lactobacillus combination no.8 3 3,000 mmu cells PO DAILY 05/29/20 11/15/21 billion cell capsule (Adult Probiotic) levothyroxine 75 mcg tablet 88 mcg PO DAILY 05/29/20 11/15/21 lisdexamfetamine 30 mg capsule 30 mg PO DAILY 05/29/20 07/22/21 (Vyvanse) ropinirole 2 mg tablet 2 mg PO HS 05/29/20 11/15/21 terbinafine HCl 250 mg tablet 250 mg PO DAILY 05/29/20 07/22/21 calcium fructoborate 216 mg tablet 216 mg PO DAILY 11/27/20 11/15/21 (Move Free Ultra Faster Comfort) magnesium 200 mg tablet 400 mg PO DAILY PRN 11/27/20 07/22/21 acetaminophen 500 mg tablet 500 mg PO Q6H PRN pain #60 tabs 04/22/21 11/15/21 lisinopril 10 mg tablet 10 mg PO DAILY 07/22/21 11/15/21 ibuprofen 200 mg tablet (Advil) 400 mg PO BID PRN 11/15/21 11/15/21 pseudoephedrine HCl 30 mg tablet 60 mg PO QAM 11/15/21 11/15/21 (Sudafed) Previous Rx's Medication Instructions Recorded acetaminophen 500 mg tablet 500 mg PO Q6H PRN pain #60 tabs 04/22/21 Allergies Allergy/AdvReac Type Severity Reaction Status Date / Time latex Allergy Severe Anaphylaxsi Unverified 11/15/21 20:55 s General Stated Complaint: FlankPain SHASTA: 3 Review of Systems All systems reviewed & are unremarkable except as noted in HPI and below PFSH All Active Problems (Updated 11/15/21 @ 22:32 by Mik Moe DO) Acute left flank pain (Acute) History of total right knee replacement (Acute 04/22/21) DOS 04/22/21 Encounter for colorectal cancer screening (Acute) Trochanteric bursitis of left hip (Acute) Right lumbar radiculitis (Chronic) Bursitis, prepatellar, left (Acute) Medical History Acne vulgaris ADHD Anxiety Arthritis of both hands Chronic cough Depression Eczema Fatigue Fibrocystic breast changes Fibromyalgia GERD (gastroesophageal reflux disease) History of cystocele Hoarseness Hx of ovarian cancer 1984 Hypothyroidism Impaired fasting glucose ROBINSON (obstructive sleep apnea) Restless leg Sciatica Sinusitis Surgical History History of arthroscopy of right knee History of cataract extraction History of hysterectomy Normal colonoscopy (~10/2020) Right wrist fracture s/p 3 surgeries including external fixation, and ORIF. Social History Smoking/Tobacco Use Status: Never Smoking risk assessment performed?: Yes Alcohol Intake: current Alcohol Intake frequency: 3 or more drinks per day Alcohol type: wine Drug use: Never Substance use type: does not use Current gender identity: female Do you feel safe at home: Yes Do you feel safe in your relationship?: Yes Exam Narrative Exam Narrative: 1.Const: Well-nourished, Well-developed, appearing stated age 2.Eyes: PERRL, no conjunctival injection, and symmetrical lids. 3.ENT: Atraumatic external nose and ears. Moist MM. Neck: Symmetric, trachea midline, No thyromegaly. 4.CVS: +S1/S2, No murmurs or gallops. Peripheral pulses 2+ and equal in all extremities. Brisk capillary refill in all extremities. 5.RESP: Unlabored respiratory effort. Clear to auscultation bilaterally. No wheezes rales or rhonchi 6.GI: Soft, Nontender/Nondistended, No hepatosplenomegaly. No guarding or rebound. No pain to McBurney's point, negative Leyva sign. Percussion reveals no flank or CVA tenderness. 7.MSK: Normocephalic/Atraumatic, Extremities w/o deformity or ttp No cyanosis or clubbing, Normal movement of all extremities 8.Skin: Warm, Dry. No rashes or lesions. 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 Sensation grossly intact, no focal neurologic deficits. 10.Psych: (AAO) x3. Appropriate mood and affect Course Vital Signs Vital signs: Vital Signs Temperature 37 C 11/15/21 20:49 Pulse 155 H 11/15/21 20:49 Respiratory Rate 14 11/15/21 20:49 Blood Pressure 126/77 11/15/21 20:49 Pulse Oximetry 93 11/15/21 20:49 Temperature 37 C 11/15/21 20:49 Temperature Source Skin 11/15/21 20:49 Pulse 155 H 11/15/21 20:49 Respiratory Rate 14 11/15/21 20:49 Respiratory Effort 11/15/21 20:56 Blood Pressure 126/77 11/15/21 20:49 Blood Pressure Position Sitting 11/15/21 20:49 Pulse Oximetry 93 11/15/21 20:49 Oxygen Delivery Method Room Air 11/15/21 20:49 Oxygen Flow Rate 0 11/15/21 20:49 Pain Level 10 11/15/21 20:49 Comment 11/15/21 20:49 Lab/Test Results Lab/Test Results: Laboratory Tests Range/Units 11/15/21 11/15/21 11/15/21 21:10 21:10 21:13 WBC (4.4-10.8) 10^3/uL 5.88 RBC (3.93-5.22) 10^6/uL 4.22 Hgb (11.2-15.7) g/dL 13.1 Hct (36.0-46.0) % 39.9 MCV (80-95) fL 95 MCH (27.0-33.0) pg 31.0 MCHC (32.0-36.0) % 32.8 RDW (11.7-14.6) % 13.2 Plt Count (130-400) 10^3/uL 333 MPV (8.0-11.0) fL 9.0 Immature Gran % 0.3 Neutrophils % 51.9 Lymphocytes % 28.4 Monocytes % 10.9 Eosinophils % 7.5 Basophils % 1.0 Nucleated RBC % (0.0-0.3) % 0.0 Absolute Neutrophils (1.2-6.7) 10^3/uL 3.05 Absolute Lymphocytes (1.2-3.4) 10^3/uL 1.67 Absolute Monocytes (0.1-0.8) 10^3/uL 0.64 Absolute Eosinophils (0.0-0.7) 10^3/uL 0.44 Absolute Basophils (0.0-0.2) 10^3/uL 0.06 Sodium (136-145) mmol/L 134 L Potassium (3.5-5.1) mmol/L 4.2 Chloride (98-107) mmol/L 99 Carbon Dioxide (21.0-32.0) mmol/L 26.3 Anion Gap (3-11) mmol/L 8.7 BUN (7-18) mg/dL 11 Creatinine (0.55-1.02) mg/dL 0.9 Estimated GFR/1.73 m2 (mL/min/1.73m2) >= 60.00 Glucose (74-106) mg/dL 102 Calcium (8.5-10.1) mg/dL 8.5 Total Bilirubin (0.2-1.0) mg/dL 0.3 AST (15-37) U/L 23 ALT (14-59) U/L 29 Alkaline Phosphatase (46-116) U/L 81 Troponin I (<or=60) ng/L < 50 Total Protein (6.4-8.2) g/dL 7.2 Albumin (3.4-5.0) g/dL 4.0 Lipase (73-393) U/L 65 Urine Color (Yellow) Yellow Urine Clarity (Clear) Clear Urine pH (5-8) 6.0 Ur Specific [place] (1.005-1.025) 1.015 Urine Protein (Negative) mg/dL Negative Urine Ketones (Negative) mg/dL Negative Urine Blood (Negative) Negative Urine Nitrite (Negative) Negative Urine Bilirubin (Negative) Negative Urine Urobilinogen (Up TO 0.2) EU/dL 0.2 Ur Leukocyte Esterase (Negative) Negative Urine Glucose (Negative) mg/dL Negative PAWSS Have you Been Recently Intoxicated or Drunk Within the Last 30 days?: No Have you Ever Experienced Previous Episodes of Alcohol Withdrawal?: No Have you ever Experienced Withdrawal Seizures?: No Have you ever Experienced Delirium Tremens(DT)s?: No Have you ever undergone Alcohol Rehabilitation Treatment (i.e, inpt ot outpatient treatment programs)?: No Have you ever Experienced Blackouts?: No Have you ever Combined Alcohol with other Downers within the last 90 days?: No Have you ever Combined Alcohol with any other Substance of Abuse during the last 90 days?: No Positive Blood Alcohol level on Presentation? [PCS.BAL]: No Evidence of Increased Autonomic Activity (i.e. HR>120, tremor, sweating, agitation, nausea)?: No Result: 0
--- NOTE | 2021-11-15 22:24 | DI.VRAD_ITS ---
PROCEDURE INFORMATION: Exam: CT Chest Without Contrast; Diagnostic Exam date and time: 11/15/2021 9:54 PM Age: 76 years old Clinical indication: Other: Lt flank pain/rt epigastric pain TECHNIQUE: Imaging protocol: Diagnostic computed tomography of the chest without contrast. Radiation optimization: All CT scans at this facility use at least one of these dose optimization techniques: automated exposure control; mA and/or kV adjustment per patient size (includes targeted exams where dose is matched to clinical indication); or iterative reconstruction. COMPARISON: CR XR CHEST 2V PA LATERAL 10/16/2018 11:06 AM FINDINGS: Lungs: Mild dependent atelectasis. No pulmonary consolidation. Pleural spaces: No pleural effusion or pneumothorax. Heart: Normal sized heart. Lymph nodes: No pathologically enlarged mediastinal or hilar lymph nodes. Vasculature: No thoracic aortic aneurysm. Bones/joints: No acute fracture seen among the bones of the chest. Spinal degenerative change with discogenic degeneration, endplate irregularities, vertebral sclerosis, and anterior osteophytes at multiple levels. Soft tissues: No gross soft tissue mass or fluid collection seen in the chest wall. IMPRESSION: No active disease is seen in the chest. PROCEDURE INFORMATION: Exam: CT Abdomen And Pelvis Without Contrast Exam date and time: 11/15/2021 9:54 PM Age: 76 years old Clinical indication: Other: Lt flank pain/rt epigastric pain TECHNIQUE: Imaging protocol: Computed tomography of the abdomen and pelvis without contrast. Radiation optimization: All CT scans at this facility use at least one of these dose optimization techniques: automated exposure control; mA and/or kV adjustment per patient size (includes targeted exams where dose is matched to clinical indication); or iterative reconstruction. COMPARISON: CR XR CHEST 2V PA LATERAL 10/16/2018 11:06 AM FINDINGS: Liver: Grossly unremarkable unenhanced liver. Gallbladder and bile ducts: Normal appearing gallbladder. No calcified gallstones. No biliary dilatation. Pancreas: Grossly unremarkable unenhanced pancreas. Spleen: Grossly unremarkable unenhanced spleen. Adrenal glands: Normal appearing adrenal glands. Kidneys and ureters: Grossly unremarkable unenhanced kidneys. No radiopaque urinary tract stones, hydronephrosis, or evidence of recent stone passage. Stomach and bowel: No oral contrast. Stomach partially distended with ingested material. No small bowel dilatation to suggest obstruction. Cecum located in the right mid abdomen suggesting free mobility on an independent mesentery. Otherwise normal-appearing colon. No evidence of diverticulitis or colitis. Appendix: Appendix not identified, obscured if present. Correlation with surgical history recommended. If there is clinical concern for acute appendicitis and the patient still has an appendix, additional evaluation would be recommended. Intraperitoneal space: No gross ascites or free air. Retroperitoneal space: Surgical clips in the anterior abdomen, left retroperitoneum, and along the left pelvic sidewall. Vasculature: Normal caliber abdominal aorta. Lymph nodes: No pathologically enlarged mesenteric, retroperitoneal, or pelvic sidewall lymph nodes. Urinary bladder: Normal appearing urinary bladder. Reproductive: Prior hysterectomy. Ovaries not identified, obscured if present. Correlation with surgical history recommended. Bones/joints: No acute fracture seen among the bones of the abdomen or pelvis. Small bilateral vestigial ribs at L1. Spinal degenerative change with discogenic degeneration, anterior osteophyte formation, and posterior osteophytic ridging at multiple levels. Grade 2 anterolisthesis of L4 on L5, apparently fused in this position. Soft tissues: No significant ventral or inguinal hernia. IMPRESSION: 1. No acute bowel pathology demonstrated. 2. No radiopaque urinary tract stones, hydronephrosis, or evidence of recent stone passage. Dictated and Authenticated by: Zain Mcclain MD. Ordering:SHONA Houser MD
--- NOTE | 2021-11-17 17:28 | NUR.NOTE ---
Nursing Note: Patient called stating that she was dx with cecum and now has questions. ? cause pain, ? cause hernia in lower ribs.n Patient told she can return if she wants to, we are here 17/01; a provider who is here now can try to answer her questions; or we can ask Dr Moe if he would call her back tonight. She elected to have Dr Moe call her tonight. She will be up til 10 - 10:30 pm. ([phone]) Mally Lewis
== END 2021-11-15 22:53 | disposition home or self-care (01) ==
PROVIDERS: Emergency Provider Student in an Organized Health Care Education/Training Program; PCP Family Medicine
DX: R10.9 Unspecified abdominal pain (principal); R10.13 Epigastric pain; R00.0 Tachycardia, unspecified
CPT/HCPCS: 36415; 71250; 80053; 83690; 93005; 96361; 96374; 96375; 99284; 74176; 81003; 84484; 85025; 93010; J1885; J2270

== ENCOUNTER 2022-03-08 18:06 | Outpatient (REF) | payer MEDICARE, BC, SELFPAY ==
[2022-03-08 16:07] LABS: TSH (W/Ref FT4) 1.29 uIU/mL (0.36-3.74)
== END 2022-03-08 18:07 | disposition home or self-care (01) ==
LOC: NCHCN 18:06
PROVIDERS: PCP Family Medicine; Visit Provider Family Medicine
DX: E03.9 Hypothyroidism, unspecified (principal)
CPT/HCPCS: 84443

== ENCOUNTER 2022-04-22 10:10 | Outpatient (CLI) | payer MEDICARE, BC, SELFPAY ==
--- NOTE | 2022-04-22 10:00 | DI.RAD_ITS ---
Exam(s) XR KNEE RT 2V AP,LAT EXAM: XR KNEE RT 2V AP,LAT CLINICAL HISTORY: ANNUAL F/U R TKA. TECHNIQUE: 2D digital imaging was performed. Two images were obtained. AP and lateral views were ob tained. COMPARISON: CR XR KNEE RT 4V AP,LAT,AMA,PAT from 11/27/2020 CR XR KNEE RT 1V from 05/07/2021 FINDINGS: BONES: There are stable post operative changes present. No fracture or dislocation. JOINTS: The orthopedic hardware is in good position. No evidence of hardware loosening. SOFT TISSUE: Normal. IMPRESSION: Stable postoperative changes. DATA REPOSITORY: RADIATION DOSE DELIVERED:
== END 2022-04-22 10:11 | disposition home or self-care (01) ==
LOC: DIORS 10:10
PROVIDERS: PCP Family Medicine; Referring Provider Family Medicine; Visit Provider Student in an Organized Health Care Education/Training Program
DX: Z96.651 Presence of right artificial knee joint (principal)
CPT/HCPCS: 99213; 73560

== ENCOUNTER 2022-07-04 13:55 | Inpatient (IN) | payer MEDICARE, BC, SELFPAY ==
--- NOTE | 2022-07-04 | DI.RAD_ITS ---
Exam(s) XR HIP LT COMPLETE AP PELVIS EXAM: XR HIP LT COMPLETE AP PELVIS INDICATION: Fem neck fx- need dedicated pelvis hip XRs. COMPARISON: CR XR SACROILIAC JOINTS from 10/23/2020 TECHNIQUE: 2D digital imaging was performed. Three views. FINDINGS: Nondisplaced fracture of the subcapital region of the left hip is noted. Hip joint spaces are mainta ined. SI joints and pubic symphysis are not widened. Visualization of the sacrum is limited by over lying stool and bowel gas. Multiple surgical clips are present in the pelvis. IMPRESSION: Nondisplaced subcapital fracture of the right femur. DATA REPOSITORY: RADIATION DOSE DELIVERED:
[2022-07-04 14:00] VITALS: BP 139/79; PULSE 82; RESP 16; TEMP 36.7; O2SAT 95
--- NOTE | 2022-07-04 14:15 | DI.CT_ITS ---
Exam(s) CT HEAD CERVICAL SPINE WO EXAM: CT HEAD CERVICAL SPINE WO CLINICAL HISTORY: fall, pain. TECHNIQUE: Imaging Protocol: Axial computed tomography images with coronal and sagittal reformatted images were created and reviewed COMPARISON: MR MR BRAIN WO/W from 07/07/2021 FINDINGS: Head CT Ventricles and Extra axial spaces: Normal in size and morphology for the patient's age. Hemorrhage: None. Cerebral parenchyma: Normal. Midline shift: None. 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 No mass effect. Calvarium: Normal. Visualized Paranasal sinuses/Mastoids: Mild mucous retention at the floor of left maxillary sinus. P eriapical lucency around a left maxillary molar tooth. Cervical Spine CT BONES: Vertebral body heights are maintained. Alignment is normal. There is no evidence of acute frac ture. Advanced degenerative disc changes and facet degenerative changes are seen greatest at from C4-5 thro ugh C6-7.. Prominent endplate osteophytes. . SOFT TISSUES: No paraspinal hematoma. The airway appears intact. No pneumothorax is seen at the lung apices. IMPRESSION: Head CT: No acute abnormality. C-spine CT: Degenerative changes, no acute abnormality. RADIATION DOSE DELIVERED: 910.01mGy.cm Total DLP DATA REPOSITORY: All CT scans at this facility are submitted to the National Radiology Data Registry (NRDR) Dose Index Registry (DIR) with the [employer] ([employer]). RADIATION OPTIMIZATION: All CT scans at this facility use at least one of these dose optimization te chniques: automated exposure control; mA and/or kV adjustment per patient size (includes targeted exa ms where dose is matched to clinical indication); or iterative reconstruction.
--- NOTE | 2022-07-04 14:18 | DI.RAD_ITS ---
Exam(s) XR TIB/FIB LT EXAM: XR TIB/FIB LT CLINICAL HISTORY: pain s/p fall. TECHNIQUE: 2D digital imaging was performed. Two views. COMPARISON: CR XR STANDING ALIGNMENT from 05/07/2021 FINDINGS: BONES: No acute fracture is present. No bony destructive lesion is seen. Visualized portion of knee s hows degenerative changes. Ankle unremarkable.. SOFT TISSUE: Normal. IMPRESSION: No acute abnormality. DATA REPOSITORY: RADIATION DOSE DELIVERED:
--- NOTE | 2022-07-04 14:18 | DI.RAD_ITS ---
Exam(s) XR FEMUR LT EXAM: XR FEMUR LT CLINICAL HISTORY: pain s/p fall. TECHNIQUE: 2D digital imaging was performed. AP and lateral views COMPARISON: Pelvis and left hip of the same day. FINDINGS: BONES: Nondisplaced fracture subcapital region left femoral neck. No additional fractures are noted distally. No bony destructive lesion is seen. JOINTS: No dislocation present. Degenerative changes are seen at the knee. Hip joint unremarkable. SOFT TISSUE: Normal. IMPRESSION: Nondisplaced subcapital fracture left femur. DATA REPOSITORY: RADIATION DOSE DELIVERED:
--- NOTE | 2022-07-04 14:22 | ED.GENADUL_ITS ---
Discharge Plan Disposition Patient Disposition: Admit to [facility] Condition: Stable Discharge Details Clinical Impression: Blunt head trauma, Closed fracture of neck of left femur Primary Care Provider: Flor Martin ED Provider: Martin Morris Home Meds and New Rx's Prescriptions: No Action ascorbate calcium (vitamin C) 500 mg tablet 500 mg PO DAILY Move Free Ultra Faster Comfort 216 mg tablet 216 mg PO DAILY lisinopril 10 mg tablet 10 mg PO DAILY ferrous sulfate 27 mg iron tablet 65 mg PO DAILY levothyroxine 75 mcg tablet 88 mcg PO DAILY Vyvanse 30 mg capsule 30 mg PO DAILY Label Comments: not taking duloxetine [Cymbalta] 20 mg capsule,delayed release(DR/EC) 30 mg PO DAILY ropinirole 2 mg tablet 2 mg PO HS Adult Probiotic 3 billion cell capsule 3,000 mmu cells PO DAILY Rx Instructions: administer with a meal Cannabidoil CBD PO Label Comments: ran out of drops and hasn't needed the rub magnesium 200 mg tablet 400 mg PO DAILY PRN Label Comments: not taking amitriptyline 10 MG tablet 1 - 2 tab PO HS acyclovir 15 GM ointment 1 ea Topical PRN omeprazole 20 MG capsule,delayed release(DR/EC) 20 mg PO DAILY multivitamin 1 EACH capsule 1 tab PO DAILY fluticasone propionate 16 GM spray,suspension 2 spry NS DAILY PRN Label Comments: 01/03/15 per pt she uses mostly in the winter. jw Fish Oil 300 MG capsule 1 tab PO BID Zyrtec 10 MG capsule 10 mg PO DAILY PRN calcium citrate-vitamin D3 [Citracal + D Maximum] 1 EACH tablet 1 tab PO DAILY acetaminophen 500 mg tablet 500 mg PO Q6H PRN (Reason: pain) Qty: 60 2RF ibuprofen [Advil] 200 mg Tablet 400 mg PO BID PRN pseudoephedrine HCl [Sudafed] 30 mg Tablet 60 mg PO QAM PRN Eucerin,Urea Cream, Salycilic Acid (Compound Cream) 1 appful topical PRN PRN Medical Decision Making 76 yo female comes in after she had a fall last night. She states she was in her kitchen around 8pm and turned and caughter her foot on a cabinet causing her to fall on her left side. Denies loc and denies any preceding symptoms such as chest pain, dyspnea, n/v, headaches. No fevers or chills. She came in today because of pain in her leg and head since the fall. She has a superficial 1cm laceration to the posterior left scalp where she has pain and also left proximal femur as well as mid tibia pain. She arrives stable caox4 in no distress. PERrl, eomi, no midline c spine tendernes, no chest, abdomen, t or l spine tenderness. No pain in the upper extremities. She has full rom of the left hip, knee, ankle. Mild tenderness to the proximal anterior thigh without palpable for visible deformities. Has tenderness without deformities of the mid anterior left tibia. No tenderness in the knee ankle or foot. Intact distal sensation and pulses. Gi ajay her age and the fall along with lac will obtain ct head and c spine. Will also obtain xray of the left femur and left tib fib and reassess. Given the fall occurred over 18 hours ago do not feel wound of her head can be closed primarily ct head and c spine negative, tib fib negative, does have a proximal femoral neck fracture. She is stable, discussed with Dr. Johnson who plans on surgery tomorrow, discussed with hospitalist who accepts for admission cxr read as ?free air under the diaphragm, she has no abdominal tenderness, follow up plain films of the abdomen show no evidence of free air Differential Diagnosis Differential Diagnosis: contusion, fracture, tbi Imaging Data Radiologic Study: Attestation: I personally reviewed and interpreted this imaging study as follows: Imaging: CT Scan My impression: Radiologist's impression: no acute findings ct head/cspine Radiologic Study #2: Attestation: I personally reviewed and interpreted this imaging study as follows: Imaging: X-Ray Radiologist's impression: no acute findings on tib/fib xray Radiologic Study #3: Attestation: I personally reviewed and interpreted this imaging study as follows: Imaging: X-Ray Radiologist's impression: femoral neck fracture Radiologic Study #4: Attestation: I personally reviewed and interpreted this imaging study as follows: Imaging: X-Ray Radiologist's impression: cxr ?free air Radiologic Study #5: Attestation: I personally reviewed and interpreted this imaging study as follows: Imaging: X-Ray Radiologist's impression: no free air on abdominal xrays Lab Data Lab results reviewed: Yes I reviewed the patient's lab results. ECG Data Attestation: I personally reviewed and interpreted this ECG (s) as follows: Prior ECG tracings: not available for review Interpretation: sinus rhythm, rate of 71, no acute st t wave ischemic findings HPI General Mode of arrival: ambulatory . Date/Time Provider Initiated Documentation: 07/04/22 13:57 . Limitations to Documentation: no limitations . Information obtained by: patient . History of Present Illness 76 year old F presents to the emergency department with the chief complaint of fall, described as moderate, Quality is described as aching, Patient reports no radiation. Patient started experiencing this day(s) (1) and it has been constant. No relieving factors improve symptom(s), No exacerbating factors reported . Patient did receive the following treatments prior to arrival, NSAID Related Data Home Medications Medication Instructions Recorded Confirmed acyclovir 5 % topical ointment 1 ea topical PRN 11/16/13 07/04/22 amitriptyline 10 mg tablet 1 - 2 tab PO HS 11/16/13 07/04/22 cetirizine 10 mg capsule (Zyrtec) 10 mg PO DAILY PRN 11/16/13 07/04/22 fluticasone propionate 50 2 spry NS DAILY PRN 11/16/13 07/04/22 mcg/actuation nasal spray,suspension multivitamin 1 tab PO DAILY 11/16/13 07/04/22 omega-3 fatty acids 300 mg capsule 1 tab PO BID 11/16/13 07/04/22 (Fish Oil) omeprazole 20 mg capsule,delayed 20 mg PO DAILY 11/16/13 07/04/22 release calcium citrate 315 mg 1 tab PO DAILY 01/03/15 07/04/22 calcium-vitamin D3 6.25 mcg (250 unit) tablet (Citracal + Vitamin D Maximum) ascorbate calcium (vitamin C) 500 500 mg PO DAILY 04/09/19 07/04/22 mg tablet Eucerin,Urea Cream, Salycilic Acid 1 appful topical PRN PRN 06/14/19 04/22/22 (Compound Cream) ferrous sulfate 27 mg iron tablet 65 mg PO DAILY 06/14/19 07/04/22 Cannabidoil CBD PO 05/29/20 04/22/22 duloxetine 20 mg capsule,delayed 30 mg PO DAILY 05/29/20 07/04/22 release (Cymbalta) lactobacillus combination no.8 3 3,000 mmu cells PO DAILY 05/29/20 07/04/22 billion cell capsule (Adult Probiotic) levothyroxine 75 mcg tablet 88 mcg PO DAILY 05/29/20 07/04/22 lisdexamfetamine 30 mg capsule 30 mg PO DAILY 05/29/20 07/04/22 (Vyvanse) ropinirole 2 mg tablet 2 mg PO HS 05/29/20 07/04/22 calcium fructoborate 216 mg tablet 216 mg PO DAILY 11/27/20 07/04/22 (Move Free Ultra Faster Comfort) magnesium 200 mg tablet 400 mg PO DAILY PRN 11/27/20 07/04/22 acetaminophen 500 mg tablet 500 mg PO Q6H PRN pain #60 tabs 04/22/21 07/04/22 lisinopril 10 mg tablet 10 mg PO DAILY 07/22/21 07/04/22 ibuprofen 200 mg tablet (Advil) 400 mg PO BID PRN 11/15/21 07/04/22 pseudoephedrine HCl 30 mg tablet 60 mg PO QAM PRN 11/15/21 07/04/22 (Sudafed) Previous Rx's Medication Instructions Recorded acetaminophen 500 mg tablet 500 mg PO Q6H PRN pain #60 tabs 04/22/21 Allergies Allergy/AdvReac Type Severity Reaction Status Date / Time latex Allergy Severe Anaphylaxsi Unverified 07/04/22 14:04 s General Stated Complaint: Orthopedic SHASTA: 3 Review of Systems All systems reviewed & are unremarkable except as noted in HPI and below Constitutional Constitutional: Denies chills, Denies fever(s) and Denies weakness ENT Ears, Nose, Mouth, and Throat: Denies change in voice Cardiovascular Cardiovascular: Denies chest pain and Denies dyspnea Respiratory Respiratory: Denies cough and Denies dyspnea Gastrointestinal Gastrointestinal: Denies abdominal pain, Denies nausea and Denies vomiting Musculoskeletal Musculoskeletal: Denies joint swelling Integumentary/Breasts Skin/Breast: Denies rash Neurologic Neurologic: Denies weakness PFSH All Active Problems Blunt head trauma (Acute) Closed fracture of neck of left femur (Acute 07/03/22) History of total right knee replacement (Acute 04/22/21) DOS 04/22/21 Encounter for colorectal cancer screening (Acute) Trochanteric bursitis of left hip (Acute) Right lumbar radiculitis (Chronic) Bursitis, prepatellar, left (Acute) Medical History Acne vulgaris ADHD Anxiety Arthritis of both hands Chronic cough Depression Eczema Fatigue Fibrocystic breast changes Fibromyalgia GERD (gastroesophageal reflux disease) History of cystocele Hoarseness Hx of ovarian cancer 1984 Hypothyroidism Impaired fasting glucose ROBINSON (obstructive sleep apnea) Restless leg Sciatica Sinusitis Surgical History History of arthroscopy of right knee History of cataract extraction History of hysterectomy Normal colonoscopy (~10/2020) Right wrist fracture s/p 3 surgeries including external fixation, and ORIF. Social History Smoking/Tobacco Use Status: Never Smoking risk assessment performed?: Yes Alcohol Intake: current Alcohol Intake frequency: 3 or more drinks per day Alcohol type: wine Drug use: Never Substance use type: does not use Current gender identity: female Do you feel safe at home: Yes Do you feel safe in your relationship?: Yes Exam Const General: no acute distress Orientation: alert HENMT Head: no palpable skull fracture Ears: external ears normal General nose exam: external nose normal Mouth: moist mucous membranes Eyes General: appearance normal, both eyes and all related structures Neck Neck: normal visual inspection and no JVD Chest Chest: no tenderness Resp Effort & Inspection: normal respiratory effort and able to speak in complete sentences Cardio Rate: regular rate GI Palpation: soft and nontender Skin General skin exam: no rashes or lesions noted Neuro General: patient alert and patient oriented x3 Extrem General: full ROM and capillary refill normal Psych Mental Status: mental status grossly normal Course Vital Signs Vital signs: Vital Signs Temperature 36.7 C 07/04/22 14:00 Pulse 82 07/04/22 14:00 Respiratory Rate 16 07/04/22 14:00 Blood Pressure 139/79 07/04/22 14:00 Pulse Oximetry 95 07/04/22 14:00 Temperature 36.7 C 07/04/22 14:00 Temperature Source Temporal Artery Scan 07/04/22 14:00 Pulse 82 07/04/22 14:00 Respiratory Rate 16 07/04/22 14:00 Respiratory Effort Non-Labored 07/04/22 14:12 Respiratory Depth Normal 07/04/22 14:12 Respiratory Pattern Normal 07/04/22 14:12 Blood Pressure 139/79 07/04/22 14:00 Blood Pressure Position Sitting 07/04/22 14:00 Pulse Oximetry 95 07/04/22 14:00 Oxygen Delivery Method Room Air 07/04/22 14:00 Oxygen Flow Rate 0 07/04/22 14:00 Pain Level 5 07/04/22 14:00 PAWSS Have you Been Recently Intoxicated or Drunk Within the Last 30 days?: No Have you Ever Experienced Previous Episodes of Alcohol Withdrawal?: No Have you ever Experienced Withdrawal Seizures?: No Have you ever Experienced Delirium Tremens(DT)s?: No Have you ever undergone Alcohol Rehabilitation Treatment (i.e, inpt ot outpatient treatment programs)?: No Have you ever Experienced Blackouts?: No Have you ever Combined Alcohol with other Downers within the last 90 days?: No Have you ever Combined Alcohol with any other Substance of Abuse during the last 90 days?: No Result: 0
--- NOTE | 2022-07-04 14:49 | DI.VRAD_ITS ---
PROCEDURE INFORMATION: Exam: XR Left Tibia and Fibula Exam date and time: 07/04/2022 2:35 PM Age: 76 years old Clinical indication: Lower leg; Left; Patient HX: Pain S/P fall TECHNIQUE: Imaging protocol: Radiologic exam of the Left tibia and fibula. Views: 2 views. COMPARISON: CR XR FOOT LT COMPLETE 08/03/2020 14:36 FINDINGS: Bones/joints: Degenerative changes of the knee. No evidence for acute bony injury. Soft tissues: Unremarkable. IMPRESSION: No evidence for acute bony injury. If clinical symptoms persist recommend followup film in 7-10 days. Dictated and Authenticated by: Serena Lora MD. Ordering:LUIS Salazar MD
--- NOTE | 2022-07-04 14:51 | DI.VRAD_ITS ---
PROCEDURE INFORMATION: Exam: CT Head Without Contrast Exam date and time: 07/04/2022 2:22 PM Age: 76 years old Clinical indication: Other: Fall, pain TECHNIQUE: Imaging protocol: Computed tomography of the head without contrast. Radiation optimization: All CT scans at this facility use at least one of these dose optimization techniques: automated exposure control; mA and/or kV adjustment per patient size (includes targeted exams where dose is matched to clinical indication); or iterative reconstruction. COMPARISON: MR BRAIN WO/W 07/07/2021 1:57 PM FINDINGS: Brain: Grullon-white matter differentiation within normal limits. There is no mass effect or midline shift. There is stable mild nonspecific patchy foci of subcortical T2 and FLAIR hyperintensity which can be seen with age-appropriate chronic microvascular ischemic changes. 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 Sulci and basal cisterns are normal for patient's age. There is no extra-axial fluid collection. Cerebral ventricles: No ventriculomegaly. Paranasal sinuses: Mild mucosal thickening in the left maxillary sinus with Mastoid air cells: Visualized mastoid air cells are well aerated. Bones/joints: No acute fracture. Soft tissues: Unremarkable. IMPRESSION: No acute intracranial abnormality. PROCEDURE INFORMATION: Exam: CT Cervical Spine Without Contrast Exam date and time: 07/04/2022 2:22 PM Age: 76 years old Clinical indication: Other: Fall, pain TECHNIQUE: Imaging protocol: Computed tomography of the cervical spine without contrast. Radiation optimization: All CT scans at this facility use at least one of these dose optimization techniques: automated exposure control; mA and/or kV adjustment per patient size (includes targeted exams where dose is matched to clinical indication); or iterative reconstruction. COMPARISON: CT CHEST/ABD/PEL WO 11/15/2021 9:54 PM FINDINGS: Bones/joints: There is no acute fracture or subluxation. Craniocervical junction is normal. Disc degenerative changes with severe loss of disc height at C4-C5, C5-C6, C6-C7 with endplate sclerosis and endplate irregularities with cystic changes. Moderate to marked loss of disc height at C7-T1. There is 2 mm anterolisthesis of C7 over T1. 2 mm anterolisthesis of C3 over C4. Mild levoscoliosis. Vertebral body heights are maintained. Facets are aligned. C2-C3: No significant disc protrusion. No severe spinal canal stenosis. No significant neural foraminal narrowing. Mild bilateral facet arthropathy. C3-C4: Osteophyte disc complex with mild spinal canal stenosis. Mild bilateral neural foraminal stenosis due to uncovertebral osteophyte and facet hypertrophic changes. C4-C5: Osteophyte disc complex with moderate spinal canal stenosis. Uncovertebral osteophytes cause [id number] bilateral neural foraminal stenosis. C5-C6: Osteophyte disc complex with moderate spinal canal stenosis. Uncovertebral osteophytes cause moderate right and mild left neural foraminal stenosis. C6-C7: Osteophyte disc complex with mild spinal canal stenosis. Uncovertebral osteophytes cause [id number] left and mild right neural foraminal stenosis. C7-T1: No significant spinal canal stenosis. No significant neural foraminal stenosis. Dental: There is periapical lucency surrounding the left maxillary molar tooth likely due to the odontogenic disease. Thyroid: There is a 7 mm nodule in the left lobe of the thyroid gland. Lungs: Lung apices are normal. Soft tissues: Unremarkable. IMPRESSION: 1. No acute fracture or subluxation. 2. Cervical spondylosis and disc degenerative changes as described. Dictated and Authenticated by: Arturo Cronin MD. Ordering:LUIS Salazar MD
--- NOTE | 2022-07-04 15:00 | RT.EKG_ITS ---
APPROVED REPORT Exam: Resting ECG Reason for Exam: hip fracture, preop Patient Location: E HR:71 bpm ECG Measurements Heart Rate 71 AXIS OR 162 P 56 QRSd 74 QRS 10 QT 403 T 37 QTc 438 Conclusion Sinus rhythm...normal P axis, V-rate 60- 99 Probable left atrial enlargement...P >50mS, <-0.10mV V1
--- NOTE | 2022-07-04 15:00 | DI.RAD_ITS ---
Exam(s) XR PORTABLE CHEST AP EXAM: XR PORTABLE CHEST AP CLINICAL HISTORY: preop TECHNIQUE: 2D digital imaging was performed. COMPARISON: CT CT CHEST/ABD/PEL WO from 11/15/2021 FINDINGS: LUNGS: Clear. No pleural abnormality seen. HEART: Normal size. AORTA: Normal diameter. Mild tortuosity. BONES: Prominent degenerative changes as well as mild scoliosis of the thoracic spine. Soft tissues: Question of free air beneath the left diaphragm versus artifact. IMPRESSION: No acute pulmonary findings. Artifact versus free air beneath the left diaphragm. DATA REPOSITORY: RADIATION DOSE DELIVERED:
--- NOTE | 2022-07-04 15:05 | DI.VRAD_ITS ---
PROCEDURE INFORMATION: Exam: XR Left Femur Exam date and time: 07/04/2022 2:38 PM Age: 76 years old Clinical indication: Thigh; Left; Patient HX: Pain S/P fall TECHNIQUE: Imaging protocol: Radiologic exam of the Left femur. Views: 2 views. COMPARISON: CT CHEST/ABD/PEL WO 15/11/2021 21:54 FINDINGS: Bones/joints: Minimally displaced proximal femoral neck fracture. Degenerative changes of the knee. Soft tissues: Surgical clips in the left pelvis. IMPRESSION: Proximal femoral neck fracture. Dictated and Authenticated by: Serena Lora MD. Ordering:LUIS Salazar MD
--- NOTE | 2022-07-04 15:45 | DI.RAD_ITS ---
Exam(s) XR ABDOMEN FLAT UPRIGHT EXAM: 2D digital imaging was performed. CLINICAL HISTORY: ?free air. COMPARISON: No exams were available for comparison TECHNIQUE: Supine and upright views of the abdomen were performed. FINDINGS: BOWEL GAS PATTERN: Nondistended.No free air. CALCIFICATIONS: No urinary tract calcifications. OSSEOUS STRUCTURES: Scoliosis and degenerative changes in the lower thoracic and lumbar spine. Nondi splaced subcapital fracture left femur. Visualized portions of chest: Unremarkable. Lung bases clear peer IMPRESSION: 1. Nonobstructive bowel gas pattern. 2. Nondisplaced fracture left femoral neck. 3. No free air. DATA REPOSITORY: RADIATION DOSE DELIVERED:
[2022-07-04 15:54] LABS: Source Nasal/Nares
[2022-07-04] MEDS: HYDROmorphone 2 MG/ML SYR 0.5 MG IVP (15:55)
--- NOTE | 2022-07-04 15:56 | DI.VRAD_ITS ---
Addendum created by Serena Lora MD on 07/04/2022 3:58:14 PM EST: THIS REPORT CONTAINS FINDINGS THAT MAY BE CRITICAL TO PATIENT CARE. The findings were verbally communicated via telephone conference with Martin Morris at 3:58 PM EST on 07/04/2022. The findings were acknowledged and understood. Initial report created on 07/04/2022 3:56:10 PM EST: PROCEDURE INFORMATION: Exam: XR Chest Exam date and time: 07/04/2022 3:16 PM Age: 76 years old Clinical indication: Screening exam; Pre-operative exam; Other: Hip FX TECHNIQUE: Imaging protocol: Radiologic exam of the chest. Views: 1 view. COMPARISON: CT CHEST/ABD/PEL WO 15/11/2021 21:54 FINDINGS: Lungs: No focal infiltrate. Pleural spaces: Unremarkable. No pleural effusion. No pneumothorax. Heart/Mediastinum: Prominent cardiac silhouette. Diaphragm: Possible free air under the left hemidiaphragm versus artifact. Bones/joints: Multilevel degenerative scoliotic changes of the spine. IMPRESSION: Possible free air under the left hemidiaphragm versus artifact. Recommend additional imaging. Dictated and Authenticated by: Serena Lora MD. Ordering:LUIS Salazar MD
[2022-07-04 15:58] VITALS: O2SAT 96
[2022-07-04 16:00] VITALS: O2SAT 95
--- NOTE | 2022-07-04 16:00 | DI.VRAD_ITS ---
PROCEDURE INFORMATION: Exam: XR Pelvis Exam date and time: 07/04/2022 3:18 PM Age: 76 years old Clinical indication: Other: Left hip pain/fx TECHNIQUE: Imaging protocol: Radiologic exam of the pelvis. Views: 1 or 2 view. COMPARISON: CT CHEST/ABD/PEL WO 15/11/2021 21:54 FINDINGS: Bones/joints: Proximal left femoral neck fracture. Soft tissues: Unremarkable. Intraperitoneal space: Surgical clips in the pelvis. IMPRESSION: Proximal left femoral neck fracture. Dictated and Authenticated by: Serena Lora MD. Ordering:LUIS Salazar MD
[2022-07-04 16:06] LABS: Abs Immature Grans 0.03 10^3/uL (0.0-0.06); Absolute Basophil Count 0.03 10^3/uL (0.0-0.2); Absolute Eosinophil Count 0.25 10^3/uL (0.0-0.7); Absolute Lymphocyte Count 0.91 10^3/uL (1.2-3.4); Absolute Monocyte Count 0.58 10^3/uL (0.1-0.8); Absolute Neutrophil Count 5.72 10^3/uL (1.2-6.7); Basophils % 0.4; Eosinophils % 3.3; HCT 37.3 % (36.0-46.0); HGB 12.7 g/dL (11.2-15.7); Immature Grans % 0.4; Lymphocytes % 12.1; MCH 31.4 pg (27.0-33.0); MCV 92 fL (80-95); MPV 9.2 fL (8.0-11.0); Monocytes % 7.7; Neutrophils % 76.1; Platelet Count 281 10^3/uL (130-400); RBC 4.05 10^6/uL (3.93-5.22); RDW-SD 43.9 fL; WBC 7.52 10^3/uL (4.4-10.8)
[2022-07-04 16:24] LABS: ALT 26 U/L (14-59); AST 24 U/L (15-37); Albumin 3.8 g/dL (3.4-5.0); Alkaline Phosphatase 82 U/L (46-116); Anion Gap 9.1 mmol/L (3-11); BUN 11 mg/dL (7-18); Bilirubin, Total 0.5 mg/dL (0.2-1.0); CO2 22.9 mmol/L (21.0-32.0); CREATININE 0.8 mg/dL (0.55-1.02); Calcium 8.1 mg/dL (8.5-10.1); Chloride 104 mmol/L (98-107); Estimated GFR 76.79 (mL/min/1.73m2); Glucose 119 mg/dL (74-106); Potassium 3.9 mmol/L (3.5-5.1); Sodium 136 mmol/L (136-145); Troponin I < 50 ng/L (<or=60)
[2022-07-04 16:27] LABS: COVID-19 PCR Negative (Negative)
--- NOTE | 2022-07-04 17:11 | DI.VRAD_ITS ---
PROCEDURE INFORMATION: Exam: XR Abdomen Exam date and time: 07/04/2022 4:33 PM Age: 76 years old Clinical indication: Other: ? Free air TECHNIQUE: Imaging protocol: Radiologic exam of the abdomen. Views: 2 Views. Upright and supine views. COMPARISON: CT CHEST/ABD/PEL WO 15/11/2021 21:54 FINDINGS: Tubes, catheters and devices: Surgical clips in the abdomen and pelvis. Heart/Mediastinum: Prominent cardiac silhouette. Gastrointestinal tract: Air-filled loops of small and large bowel. Intraperitoneal space: There is no evidence for free intraperitoneal air. Bones/joints: Multilevel degenerative scoliotic changes of the spine. Proximal left femoral neck fracture. IMPRESSION: 1. No evidence for free intraperitoneal air. 2. Proximal left femoral neck fracture. Dictated and Authenticated by: Serena Lora MD. Ordering:LUIS Salazar MD
--- NOTE | 2022-07-04 17:18 | DI.VRAD_ITS ---
PROCEDURE INFORMATION: Exam: XR Left Hip Exam date and time: 07/04/2022 4:31 PM Age: 76 years old Clinical indication: Other: Fem neck FX TECHNIQUE: Imaging protocol: Radiologic exam of the Left hip. Views: 2 or 3 views hip with pelvis when performed. COMPARISON: CR XR PELVIS AP 01/25/2023 15:18 FINDINGS: Tubes, catheters and devices: Pelvic clips in place. Bones/joints: Proximal femoral neck fracture in near anatomic alignment. Soft tissues: Unremarkable. IMPRESSION: Proximal femoral neck fracture. Dictated and Authenticated by: Serena Lora MD. Ordering:JD Burgos MD
[2022-07-04 17:23] VITALS: O2SAT 95
[2022-07-04] MEDS: HYDROmorphone 2 MG/ML SYR IVP (18:50)
--- NOTE | 2022-07-04 19:32 | HPE_ITS ---
Date of service: 07/04/22 Time of Service: 19:32 Assessment and Plan Assessment and plan (1) Closed fracture of neck of left femur: Status: Acute Assessment and plan: Left valgus impacted femoral neck fracture NPO post midnight, IVF, and pain control Recommend bedrest, Reardon, and b/l SCDs and/or TEDs Orthopedics Plans on percutaneous cannulated screw fixation (2) Blunt head trauma: Status: Acute Assessment and plan: Lac to occipital area of head - CT neg; not repaired; TDAP given, hair cleansed to get dried blood out of hair and visualize lac (3) DVT prophylaxis: Status: Acute Assessment and plan: Will begin post op (4) Discharge planning issues: Status: Acute Assessment and plan: Home with home v community PT Discussed with Dr Lagunas History of Present Illness History of Present Illness Chief Complaint: Left hip pain Narrative: 76 year old? female patient presents to the [facility] emergency department with the chief complaint of fall,?described as moderate,?Quality is described as aching,?Patient reports no radiation.?Patient started experiencing this 1day ago?and it has been constant.?No relieving factors improve symptom(s),?No exacerbating factors reported .?Patient did receive? the following treatments prior to arrival, NSAID. She states she had a?fall last night. She states she was in her kitchen around 8pm and turned and caught her foot on a cabinet causing her to fall on her left side. Denies loc and denies any preceding symptoms such as chest pain, dyspnea, n/v, headaches. No fevers or chills. She came in today because of pain in her leg and head since the fall. She has a superficial 1cm laceration to the posterior left scalp where she has pain and also left proximal femur as well as mid tibia pain. She arrived stable caox4 in no distress. PERRL, eomi, no midline c spine tendernes, no chest, abdomen, t or l spine tenderness. No pain in the upper extremities. She has full rom of the left hip, knee, ankle. Mild tenderness to the proximal anterior thigh without palpable for visible deformities. Has tenderness without deformities of the mid anterior left tibia. No tenderness in the knee ankle or foot. Intact distal sensation and pulses. Given her age and the fall along with lac obtained ct head and c spine, xray of the left femur and left tib fib. Given the fall occurred over 18 hours ago head wound was not repaired. There is no bleeding currently. CT head and c spine negative, tib fib negative, does have a left proximal femoral neck fracture. She is stable, discussed with Dr. Johnson who plans on surgery tomorrow. CXR read as ? free air under the diaphragm, she has no abdominal tenderness, follow up plain films of the abdomen show no evidence of free air. She is admitted to the medical floor overnight, NPO after midnight for planned surgery in am. PFSH All Active Problems (Updated 07/04/22 @ 19:45 by Emmy Boggs NP) Discharge planning issues (Acute) DVT prophylaxis (Acute) Blunt head trauma (Acute) Closed fracture of neck of left femur (Acute 07/03/22) History of total right knee replacement (Acute 04/22/21) DOS 04/22/21 Encounter for colorectal cancer screening (Acute) Trochanteric bursitis of left hip (Acute) Right lumbar radiculitis (Chronic) Bursitis, prepatellar, left (Acute) Medical History Acne vulgaris ADHD Anxiety Arthritis of both hands Chronic cough Depression Eczema Fatigue Fibrocystic breast changes Fibromyalgia GERD (gastroesophageal reflux disease) History of cystocele Hoarseness Hx of ovarian cancer 1984 Hypothyroidism Impaired fasting glucose ROBINSON (obstructive sleep apnea) Restless leg Sciatica Sinusitis Surgical History History of arthroscopy of right knee History of cataract extraction History of hysterectomy Normal colonoscopy (~10/2020) Right wrist fracture s/p 3 surgeries including external fixation, and ORIF. Social History Smoking/Tobacco Use Status: Never Smoking risk assessment performed?: Yes Alcohol Intake: current Alcohol Intake frequency: 3 or more drinks per day Alcohol type: wine Drug use: Never Substance use type: does not use Current gender identity: female Do you feel safe at home: Yes Do you feel safe in your relationship?: Yes Meds Allergies and Home Medications Allergies Allergy/AdvReac Type Severity Reaction Status Date / Time latex Allergy Severe Anaphylaxsi Unverified 07/04/22 14:04 s Home Medications Medication Instructions Recorded Confirmed Type acyclovir 5 % topical ointment 1 ea topical PRN 11/16/13 07/04/22 History amitriptyline 10 mg tablet 1 - 2 tab PO HS 11/16/13 07/04/22 History cetirizine 10 mg capsule (Zyrtec) 10 mg PO DAILY PRN 11/16/13 07/04/22 History fluticasone propionate 50 2 spry NS DAILY PRN 11/16/13 07/04/22 History mcg/actuation nasal spray,suspension multivitamin 1 tab PO DAILY 11/16/13 07/04/22 History omega-3 fatty acids 300 mg capsule 1 tab PO BID 11/16/13 07/04/22 History (Fish Oil) omeprazole 20 mg capsule,delayed 20 mg PO DAILY 11/16/13 07/04/22 History release calcium citrate 315 mg 1 tab PO DAILY 01/03/15 07/04/22 History calcium-vitamin D3 6.25 mcg (250 unit) tablet (Citracal + Vitamin D Maximum) ascorbate calcium (vitamin C) 500 500 mg PO DAILY 04/09/19 07/04/22 History mg tablet Eucerin,Urea Cream, Salycilic Acid 1 appful topical PRN PRN 06/14/19 04/22/22 History (Compound Cream) ferrous sulfate 27 mg iron tablet 65 mg PO DAILY 06/14/19 07/04/22 History Cannabidoil CBD PO 05/29/20 04/22/22 History duloxetine 20 mg capsule,delayed 30 mg PO DAILY 05/29/20 07/04/22 History release (Cymbalta) lactobacillus combination no.8 3 3,000 mmu cells PO DAILY 05/29/20 07/04/22 History billion cell capsule (Adult Probiotic) levothyroxine 75 mcg tablet 88 mcg PO DAILY 05/29/20 07/04/22 History lisdexamfetamine 30 mg capsule 30 mg PO DAILY 05/29/20 07/04/22 History (Vyvanse) ropinirole 2 mg tablet 2 mg PO HS 05/29/20 07/04/22 History calcium fructoborate 216 mg tablet 216 mg PO DAILY 11/27/20 07/04/22 History (Move Free Ultra Faster Comfort) magnesium 200 mg tablet 400 mg PO DAILY PRN 11/27/20 07/04/22 History acetaminophen 500 mg tablet 500 mg PO Q6H PRN pain #60 tabs 04/22/21 07/04/22 Rx lisinopril 10 mg tablet 10 mg PO DAILY 07/22/21 07/04/22 History ibuprofen 200 mg tablet (Advil) 400 mg PO BID PRN 11/15/21 07/04/22 History pseudoephedrine HCl 30 mg tablet 60 mg PO QAM PRN 11/15/21 07/04/22 History (Sudafed) Exam Const General: no acute distress Orientation: alert [facility] Head: no palpable skull fracture Ears: external ears normal General nose exam: external nose normal Mouth: moist mucous membranes Eyes General: appearance normal, both eyes and all related structures Neck Neck: normal visual inspection and no JVD Chest Chest: no tenderness Resp Effort & Inspection: normal respiratory effort and able to speak in complete sen tences Cardio Rate: regular rate GI Palpation: soft and nontender Skin General skin exam: no rashes or lesions noted Neuro General: patient alert and patient oriented x3 Extrem General: full ROM and capillary refill normal Psych Mental Status: mental status grossly normal Results Labs Result diagrams: 07/04/22 15:53 07/04/22 15:53 Labs: Laboratory Results - last 24 hr 07/04/22 07/04/22 07/04/22 15:35 15:53 15:53 WBC 7.52 RBC 4.05 Hgb 12.7 Hct 37.3 MCV 92 MCH 31.4 MCHC 34.0 RDW 13.0 Plt Count 281 MPV 9.2 Immature Gran % 0.4 Neutrophils % 76.1 Lymphocytes % 12.1 Monocytes % 7.7 Eosinophils % 3.3 Basophils % 0.4 Nucleated RBC % 0.0 Absolute Neutrophils 5.72 Absolute Lymphocytes 0.91 L Absolute Monocytes 0.58 Absolute Eosinophils 0.25 Absolute Basophils 0.03 Sodium 136 Potassium 3.9 Chloride 104 Carbon Dioxide 22.9 Anion Gap 9.1 BUN 11 Creatinine 0.8 Est GFR (CKD-EPI 2020) 76.79 Glucose 119 H Calcium 8.1 L Magnesium 2.0 Total Bilirubin 0.5 AST 24 ALT 26 Alkaline Phosphatase 82 Troponin I < 50 Total Protein 7.0 Albumin 3.8 COVID-19 Source Nasal/Nares SARS-CoV-2 (PCR) Negative Patient ABO/Rh Antibody Screen 07/04/22 15:53 WBC RBC Hgb Hct MCV MCH MCHC RDW Plt Count MPV Immature Gran % Neutrophils % Lymphocytes % Monocytes % Eosinophils % Basophils % Nucleated RBC % Absolute Neutrophils Absolute Lymphocytes Absolute Monocytes Absolute Eosinophils Absolute Basophils Sodium Potassium Chloride Carbon Dioxide Anion Gap BUN Creatinine Est GFR (CKD-EPI 2020) Glucose Calcium Magnesium Total Bilirubin AST ALT Alkaline Phosphatase Troponin I Total Protein Albumin COVID-19 Source SARS-CoV-2 (PCR) Patient ABO/Rh A Positive Antibody Screen NEGATIVE Last Vital Signs Temp 36.7 C 07/04/22 14:00 Pulse 82 07/04/22 14:00 Resp 16 07/04/22 14:00 BP 139/79 07/04/22 14:00 Pulse Ox 95 07/04/22 17:23 PAWSS Have you Been Recently Intoxicated or Drunk Within the Last 30 days?: No Have you Ever Experienced Previous Episodes of Alcohol Withdrawal?: No Have you ever Experienced Withdrawal Seizures?: No Have you ever Experienced Delirium Tremens(DT)s?: No Have you ever undergone Alcohol Rehabilitation Treatment (i.e, inpt ot outpatient treatment programs)?: No Have you ever Experienced Blackouts?: No Have you ever Combined Alcohol with other Downers within the last 90 days?: No Have you ever Combined Alcohol with any other Substance of Abuse during the last 90 days?: No Result: 0 Time Spent Time spent with Patient: 55-74 minutes Time was spent: preparing to see the patient(eg.review tests), obtaining and/or reviewing separately otained hiistory, ordering medications,tests, procedures, referring, communicating with other health critical care paramedic, indepentently interpreting results, counseling the patient and care coordination
[2022-07-04 19:52] VITALS: BP 153/80; PULSE 87; RESP 18; TEMP 36.8; O2SAT 95
[2022-07-04] MEDS: Amitriptyline 10 MG TAB 20 MG PO (21:49)
[2022-07-04] MEDS: rOPINIRole 1 MG TAB 2 MG PO (22:19)
--- NOTE | 2022-07-04 22:24 | TELEP.MEDR_ITS ---
Date of service: 07/04/22 Time of [facility]: 22:[facility] All[facility]ies Allergies: latex Allergy (Severe, Unverified 07/04/22 14:04) Anaphylaxsis Interview Person Interviewed: * Patient Quality Quality of Interview/Accuracy of Medication List: Good Sources Sources used to compile medication list: [facility] Medication List and SureScripts Changes made to Home Medication List: ADDITIONS: * Turmeric 2 cap po daily (not sure of dose) * Grapefruit seed extract 10-20 drops in water po daily * Veggie caps daily (not added to list doesnt know specifics about product) * Ritalin 5mg po daily prn DELETIONS: * Vyvanse * Magnesium * Multivitamin CHANGES: * Ibuprofen 400mg po bid * Cetirizine 10mg po daily Additional Notes Additional Notes: * Updated medication list with information provided by patient. Patient did confirm levothyroxine is a pale green which is 88mcg strength. Recommended Changes Recommended Changes(reason for recommendation): * None Attestation: The home medication list is now updated to the best of my knowledge and is ready to be reconciled by the provider. [facility] at for any questions.
--- NOTE | 2022-07-04 22:24 | TELEP.MEDREC ---
Date of service: 07/04/22 Time of Service: 22:24 Telepharmacy Home Med Rec Allergies Allergies: latex Allergy (Severe, Unverified 07/04/22 14:04) Anaphylaxsis Interview Person Interviewed: Patient Quality Quality of Interview/Accuracy of Medication List: Good Sources Sources used to compile medication list: [employer] Medication List and SureScripts Changes made to Home Medication List: ADDITIONS: Turmeric 2 cap po daily (not sure of dose) Grapefruit seed extract 10-20 drops in water po daily Veggie caps daily (not added to list doesnt know specifics about product) Ritalin 5mg po daily prn DELETIONS: Vyvanse Magnesium Multivitamin CHANGES: Ibuprofen 400mg po bid Cetirizine 10mg po daily Additional Notes Additional Notes: Updated medication list with information provided by patient. Patient did confirm levothyroxine is a pale green which is 88mcg strength. Recommended Changes Recommended Changes(reason for recommendation): None Attestation: The home medication list is now updated to the best of my knowledge and is ready to be reconciled by the provider. Please contact the TelePharmacy Medication Reconciliation Pharmacist at for any questions.
[2022-07-04] MEDS: Lactated Ringers 1,000 ML 125 ML IV (22:46)
[2022-07-04 23:35] VITALS: BP 153/93; PULSE 73; RESP 18; TEMP 36.7; O2SAT 94
[2022-07-05] VITALS (12 sets, daily range): BP systolic 130–183; BP diastolic 70–109; PULSE 77–88; RESP 16–24; TEMP 36.7–37.4; O2SAT 94–98; BMI 21.9
[2022-07-05] MEDS: HYDROmorphone 2 MG/ML SYR IVP ×2 (04:25→08:49)
[2022-07-05 06:31] LABS: Abs Immature Grans 0.01 10^3/uL (0.0-0.06); Absolute Basophil Count 0.05 10^3/uL (0.0-0.2); Absolute Eosinophil Count 0.31 10^3/uL (0.0-0.7); Absolute Lymphocyte Count 0.85 10^3/uL (1.2-3.4); Absolute Monocyte Count 0.42 10^3/uL (0.1-0.8); Absolute Neutrophil Count 3.57 10^3/uL (1.2-6.7); HCT 35.1 % (36.0-46.0); HGB 11.8 g/dL (11.2-15.7); Immature Grans % 0.2; Lymphocytes % 16.3; MCH 30.9 pg (27.0-33.0); MCHC 33.6 % (32.0-36.0); MCV 92 fL (80-95); MPV 9.6 fL (8.0-11.0); Monocytes % 8.1; Neutrophils % 68.4; Platelet Count 276 10^3/uL (130-400); RBC 3.82 10^6/uL (3.93-5.22); RDW 13.2 % (11.7-14.6); RDW-SD 44.5 fL; WBC 5.21 10^3/uL (4.4-10.8)
[2022-07-05] MEDS: Lactated Ringers 1,000 ML 125 ML IV (06:33)
--- NOTE | 2022-07-05 06:35 | ANES.PREOP_ITS ---
General Info Date of Service Date Performed: 07/05/22 Height: 5 ft 2 in Weight: 54.431 kg Body Mass Index (BMI): 21.9 Meds Allergies and Home Medications Allergies Allergy/AdvReac Type Severity Reaction Status Date / Time latex Allergy Severe Anaphylaxsi Unverified 07/04/22 14:04 s Home Medication Medication Instructions Recorded acyclovir 5 % topical ointment 1 ea topical PRN 11/16/13 amitriptyline 10 mg tablet 1 - 2 tab PO HS 11/16/13 cetirizine 10 mg capsule (Zyrtec) 10 mg PO DAILY 11/16/13 fluticasone propionate 50 2 spry NS DAILY PRN 11/16/13 mcg/actuation nasal spray,suspension omega-3 fatty acids 300 mg capsule 1 tab PO BID 11/16/13 (Fish Oil) omeprazole 20 mg capsule,delayed 20 mg PO DAILY 11/16/13 release calcium citrate 315 mg 1 tab PO DAILY 01/03/15 calcium-vitamin D3 6.25 mcg (250 unit) tablet (Citracal + Vitamin D Maximum) ascorbate calcium (vitamin C) 500 500 mg PO DAILY 04/09/19 mg tablet Eucerin,Urea Cream, Salycilic Acid 1 appful topical PRN PRN 06/14/19 (Compound Cream) ferrous sulfate 27 mg iron tablet 65 mg PO DAILY 06/14/19 Cannabidoil CBD PO 05/29/20 duloxetine 20 mg capsule,delayed 30 mg PO DAILY 05/29/20 release (Cymbalta) lactobacillus combination no.8 3 3,000 mmu cells PO DAILY 05/29/20 billion cell capsule (Adult Probiotic) levothyroxine 75 mcg tablet 88 mcg PO DAILY 05/29/20 ropinirole 2 mg tablet 2 mg PO HS 05/29/20 calcium fructoborate 216 mg tablet 216 mg PO DAILY 11/27/20 (Move Free Ultra Faster Comfort) acetaminophen 500 mg tablet 500 mg PO Q6H PRN pain #60 tabs 04/22/21 lisinopril 10 mg tablet 10 mg PO DAILY 07/22/21 ibuprofen 200 mg tablet (Advil) 400 mg PO BID 11/15/21 pseudoephedrine HCl 30 mg tablet 60 mg PO QAM PRN 11/15/21 (Sudafed) flavoring agent (bulk) (Grapefruit 10 - 20 applic miscellaneous DAILY 07/04/22 oil) methylphenidate HCl 5 mg tablet 5 mg PO DAILY PRN PRN 07/04/22 turmeric 500 mg-black pepper 2 cap PO DAILY 07/04/22 extract 3 mg capsule Current Visit Medications: Current Medications Generic Name Dose Route Start Last Admin Trade Name Freq PRN Reason Stop Dose Admin Acetaminophen 0 mg 07/04/22 15:18 Acetaminophen 325 Mg Tab PO Q4H PRN PRN Al Hydrox/Mg Hydrox/Simethicone 30 ml 07/04/22 15:18 Mylanta Suspension 30 Ml Cup PO Q2H PRN PRN Amitriptyline HCl 20 mg 07/04/22 22:00 07/04/22 21:49 Amitriptyline 10 Mg Tab PO 20 mg HS FELISHA Administration Dimethicone/Zinc Oxide 0 gm 07/04/22 15:18 Nate Protect Cream 142 Gm Tube TP PRN PRN Docusate Sodium 100 mg 07/04/22 15:18 Docusate Sodium 100 Mg Cap PO TID PRN PRN Duloxetine HCl 30 mg 07/05/22 08:30 Duloxetine 20 Mg Cap PO DAILY FELISHA Fluticasone Propionate 0.44496 gm 07/04/22 15:26 Fluticasone Nasal Bruce 16 Gm Btl NS DAILY PRN PRN Hydromorphone HCl 0.5 - 1 mg 07/04/22 18:10 07/05/22 04:25 Hydromorphone 2 Mg/Ml Syr IVP 1 mg Q4H PRN PRN Administration Ringer's Solution 1,000 mls @ 125 mls/hr 07/04/22 18:15 07/05/22 06:33 IV 125 mls/hr INFUSION FELISHA Administration IV Miscellaneous Supplies 1 each 07/04/22 15:15 Iv Access IV DIRECTED FELISHA Levothyroxine Sodium 88 mcg 07/05/22 08:30 Levothyroxine 75 Mcg Tab PO DAILY FELISHA Lisinopril 10 mg 07/05/22 08:30 Lisinopril 10 Mg Tab PO DAILY FELISHA Magnesium Hydroxide 30 ml 07/04/22 15:18 Milk Of Magnesia 30 Ml Cup PO DAILY PRN PRN Omeprazole 20 mg 07/05/22 08:30 Omeprazole 20 Mg Capcr PO DAILY [facility] Ondansetron HCl 4 mg 07/04/22 18:12 Ondansetron 4 Mg/2 Ml Vial IVP Q6H PRN PRN Polyethylene Glycol 17 gm 07/04/22 15:18 Polyethylene Glycol 3350 17 Gm Packet PO DAILY PRN PRN Constipation Ropinirole HCl 2 mg 07/04/22 22:00 07/04/22 22:19 Ropinirole 1 Mg Tab PO 2 mg HS FELISHA Administration Sodium Chloride 0 ml 07/04/22 15:11 Normal Saline Flush 10 Ml Syr IVP PRN PRN PFSH Active Problems Active Problems: Problem Status Onset Code Discharge planning issues Z02.9 DVT prophylaxis Z29.9 Blunt head trauma S09.8XXA Closed fracture of neck of left femur 07/03/22 S72.002A History of total right knee replacement 04/22/21 Z96.651 Encounter for colorectal cancer screening Z12.11, Z12.12 Trochanteric bursitis of left hip M70.62 Right lumbar radiculitis M54.16 Bursitis, prepatellar, left M70.42 Medical History Medical History Acne vulgaris ADHD Anxiety Arthritis of both hands Chronic cough Depression Eczema Fatigue Fibrocystic breast changes Fibromyalgia GERD (gastroesophageal reflux disease) History of cystocele Hoarseness Hx of ovarian cancer 1984 Hypothyroidism Impaired fasting glucose ROBINSON (obstructive sleep apnea) Restless leg Sciatica Sinusitis Surgical History Surgical History History of arthroscopy of right knee History of cataract extraction History of hysterectomy Normal colonoscopy (~10/2020) Right wrist fracture s/p 3 surgeries including external fixation, and ORIF. Tobacco Smoking/Tobacco Use Status: Never Alcohol Alcohol Intake: current Alcohol intake frequency: 3 or more drinks per day Alcohol type: wine Substance Use Substance use: Never Substance use type: does not use Vital Signs and Lab Results Vital Signs Most Recent Vital Signs in EMR: Most Recent Vital Signs Temp Pulse Resp BP Pulse Ox 37.1 C 85 18 151/90 H 96 07/05/22 03:35 07/05/22 03:35 07/05/22 03:35 07/05/22 03:35 07/05/22 03:35 Lab Results Result Diagrams: 07/05/22 05:38 07/05/22 05:38 Blood Type / Crossmatch: Patient ABO/Rh A Positive 07/04/22 Antibody Screen NEGATIVE 07/04/22 Complete Blood Count: White Blood Count 5.21 10^3/uL (4.4-10.8) 07/05/22 05:38 Red Blood Count 3.82 10^6/uL (3.93-5.22) L 07/05/22 05:38 Hemoglobin 11.8 g/dL (11.2-15.7) 07/05/22 05:38 Hematocrit 35.1 % (36.0-46.0) L 07/05/22 05:38 Platelet Count 276 10^3/uL (130-400) 07/05/22 05:38 Complete Metabolic Panel: Sodium 137 mmol/L (136-145) 07/05/22 05:38 Potassium 3.7 mmol/L (3.5-5.1) 07/05/22 05:38 Chloride 104 mmol/L (98-107) 07/05/22 05:38 Carbon Dioxide 25.5 mmol/L (21.0-32.0) 07/05/22 05:38 BUN 7 mg/dL (7-18) 07/05/22 05:38 Creatinine 0.6 mg/dL (0.55-1.02) 07/05/22 05:38 Est GFR (CKD-EPI 2020) 93.55 (mL/min/1.73m2) 07/05/22 05:38 Magnesium 1.7 mg/dL (1.8-2.4) L 07/05/22 05:38 Calcium 8.2 mg/dL (8.5-10.1) L 07/05/22 05:38 Albumin 3.3 g/dL (3.4-5.0) L 07/05/22 05:38 Glucose 107 mg/dL (74-106) H 07/05/22 05:38 Liver Function Panel: Alanine Aminotransferase (ALT/SGPT) 19 U/L (14-59) 07/05/22 05: 38 Aspartate Amino Transf (AST/SGOT) 22 U/L (15-37) 07/05/22 05:38 Coagulation Panel: No Data to Display Cardiac Panel: Troponin I < 50 ng/L (<or=60) 07/04/22 Arterial Blood Gas: No Data to Display Venous Blood Gas: No Data to Display Pancreas Panel: No Data to Display Thyroid Panel: No Data to Display Infectious Disease: Coronavirus (COVID-19)(PCR) Negative (Negative) 07/04/22 15:35 Coronavirus 2019 Source Nasal/Nares 07/04/22 15:35 Blood Cultures: No Data to Display Toxicology Panel: No Data to Display Imaging and Studies Imaging and Studies Study information below may be from another EMR and interpreted by another provider. Please see original notes in EMR for more complete details. EKG Summary: 07/04/22: sinus rhythm. Anesthesia Assessment and Plan Anesthesia History Personal History: No History of Anesthesia Complications Family History: No Family History of Anesthesia Complications Exercise Tolerance Exercise Tolerance: Metabolic Equivalents>4 Pertinent Negatives Pertinent Negatives: No Symptoms of GERD Cardiac & Pulmonary Exam Cardiac Exam: Normal S1/S2 Heart Sounds Pulmonary Exam: Clear Bilateral Breath Sounds Implantable Cardiac Device Does patient have a Pacemaker or an ICD?: No Airway Exam Known Difficult Airway: No Mallampati Class: 1 Mouth Opening: Normal (> 3cm) Thyromental Distance: Greater than 3 cm Neck Range of Motion: Full ROM Neck Circumference: Normal Teeth Condition: Normal Dentition ASA Classification ASA Score: ASA 3 Emergency Case?: No NPO Status NPO Status: NPO Clears >2 hours, Solids >8 hours Anesthesia Plan Resuscitation Status: Full Code Anesthesia Technique: General Anesthesia Airway Planned: LMA Monitors Used: Standard Monitors Preoperative Comments:: 76 yo female admitted on 07/04/22 after a fall and sustained a hip fracture. Also had a head laceration with a negative head CT. hydromorphone for pain. Sig PMHx: anxiety/ADHD/depression (Vyvanse, duloxetine), HTN (lisinopril)chronic cough, fibromyalgia (amitriptyline), ROBINSON, GERD (omep), hypothyroid (on replacement), RLS (ropinirole), never smoker, daily EtOH/CBD. Previous Anes: - colo with prop and no airway, no issues. - TKA, spinal with chloro, no issues.
[2022-07-05 06:46] LABS: ALT 19 U/L (14-59); AST 22 U/L (15-37); Albumin 3.3 g/dL (3.4-5.0); Alkaline Phosphatase 69 U/L (46-116); Anion Gap 7.5 mmol/L (3-11); BUN 7 mg/dL (7-18); Bilirubin, Total 0.6 mg/dL (0.2-1.0); CO2 25.5 mmol/L (21.0-32.0); CREATININE 0.6 mg/dL (0.55-1.02); Calcium 8.2 mg/dL (8.5-10.1); Chloride 104 mmol/L (98-107); Estimated GFR 93.55 (mL/min/1.73m2); Glucose 107 mg/dL (74-106); Magnesium 1.7 mg/dL (1.8-2.4); Potassium 3.7 mmol/L (3.5-5.1); Sodium 137 mmol/L (136-145); Total Protein 6.1 g/dL (6.4-8.2)
[2022-07-05] MEDS: MAGNESIUM SULFATE 2 GM/50 ML BAG IVPB (09:22)
[2022-07-05] MEDS: Normal Saline Flush 10 ML SYR IVP ×2 (09:22→19:46)
[2022-07-05] MEDS: Levothyroxine 88 MCG TAB PO (09:23)
--- NOTE | 2022-07-05 10:58 | PDOC.CMIN ---
- If Service Date Differs Date of service: 07/05/22 Time of Service: 10:58 Care Management Initial Assess REASON FOR HOSPITALIZATION:: Left Femoral Neck Fracture PAST MEDICAL HISTORY/PAST SURGICAL HISTORY:: All Active Problems. Discharge planning issues (Acute). DVT prophylaxis (Acute). Blunt head trauma (Acute). Closed fracture of neck of left femur (Acute 07/03/22). History of total right knee replacement (Acute 04/22/21). DOS 04/22/21. Encounter for colorectal cancer screening (Acute). Trochanteric bursitis of left hip (Acute). Right lumbar radiculitis (Chronic). Bursitis, prepatellar, left (Acute). Medical History. Acne vulgaris. ADHD. Anxiety. Arthritis of both hands. Chronic cough. Depression. Eczema. Fatigue. Fibrocystic breast changes. Fibromyalgia. GERD (gastroesophageal reflux disease). History of cystocele. Hoarseness. Hx of ovarian cancer. 1984. Hypothyroidism. Impaired fasting glucose. ROBINSON (obstructive sleep apnea). Restless leg. Sciatica. Sinusitis. Surgical History. History of arthroscopy of right knee. History of cataract extraction. History of hysterectomy. Normal colonoscopy (~10/2020). Right wrist fracture. s/p 3 surgeries including external fixation, and ORIF. PREVIOUS FUNCTIONAL STATUS/SOCIAL/FAMILY SUPPORTS:: Marychuy lives in [facility] with her , Geo. They have a son who is a prime minister in [place], [place] and a daughter who lives in [place] with her and two children. 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 CURRENT FUNCTIONAL STATUS:: Marychuy was sitting up in bed having a sandwich when CM met with her. Her , Félix was in the room visiting. She stated that the surgery went well today, and that she is feeling great. She had not worked with PT yet, but per MD, she would likely return home tomorrow afternoon. Ed is very supportive, suggesting that he would be her caregiver while she recovers at home. She stated that she is independent and does not anticipate the need for services, unless indicated by PT or MD. CM will continue to follow. ADVANCE DIRECTIVES:: Not on file at [facility]. Has patient been provided with info about the portal/API?: Yes Did the patient sign up for the portal?: Yes CODE STATUS:: Full Code INSURANCE COVERAGE / FINANCIAL ISSUES:: [facility]/ BC/BS CURRENT HOME/COMMUNITY SERVICES/EQUIPMENT:: No current services or equipment. PRIMARY CARE PHYSICIAN:: Flor Martin POTENTIAL DISCHARGE NEEDS:: Evaluations for further needs, follow up appointments. PATIENT/FAMILY EDUCATION NEEDS:: Review discharge instructions and limitations, discussion of self care needs including ask me three. ANTICIPATED BARRIERS TO DISCHARGE:: None identified. TRANSPORTATION:: Via private vehicle by family. PLAN:: Anticipate Marychuy will return home once medically cleared. Her family will transport her home via private vehicle. She will follow up with her PCP and discharge plan of care. CM will continue to follow.
--- NOTE | 2022-07-05 11:00 | DI.RAD_ITS ---
Exam(s) XR HIP LT IN OR EXAM: XR HIP LT IN OR CLINICAL HISTORY: CLOSED NECK FX LEFT FEMUR. TECHNIQUE: 2D and realtime digital imaging was performed. COMPARISON: No exams were available for comparison FINDINGS: Hard copy images show placement of 3 screws through the proximal femur for fixation of the subcapital fracture. Please see procedure note for details. Fluoro time: 76.6seconds RADIATION DOSE DELIVERED: priscila Figueroa=8.88 mGy
--- NOTE | 2022-07-05 11:36 | W.ORTHOCONSU ---
Date of service: 07/05/22 Time of Service: 11:31 History of Present Illness Narrative: 76 year old female mechanical fall last night onto left side. Able to ambulate but with groin hip and thigh discomfort. Presented to the emergency department the following day for evaluation. Found to have mildly displaced femoral neck fracture and admitted to hospitalist service. Healthy and active. Plays tennis regularly. History of right total knee replacement with Dr. Joy last year, doing well. Had issues after surgery with fibromyalgia flareup. Also has longstanding history of bilateral iliotibial band syndrome treated at [facility] . No pre-existing arthritic problems, does not use ambulatory device, eager to get back to active lifestyle including tennis. Pain localizes to the left hip, groin, and radiates down the thigh. Only other injury includes a scalp laceration. Consult Reason Hip fracture Assessment and Plan Assessment and plan (1) Closed fracture of neck of left femur: Status: Acute Assessment and plan: 76 year old female with Left valgus impacted femoral neck fracture; chronic bilateral iliotibial band syndrome and trochanteric bursitis Ordered Pelvis and Hip X-rays (AP hip must be in neutral rotation, not ER) Medical admission and optimization for surgery tomorrow: NPO post midnight, IVF, and pain control Recommend bedrest, Reardon, and b/l SCDs and/or TEDs Plan on percutaneous cannulated screw fixation The risks, benefits, and alternatives were thoroughly discussed. In particular, we discussed heightened pain after surgery given problems with fibromyalgia algia after prior orthopedic surgery. We also discussed worsening of iliotibial band syndrome due to hardware/screw heads. Possibly requiring future iliotibial band release, trochanteric bursectomy, and hardware removal. We also discussed potential for nonunion, malunion, AVN requiring future surgery like hip replacement. Patient was counseled regarding pain management, expected postoperative course, and recovery timeline. All questions were answered. Informed consent was obtained. Patient agrees and understands the treatment plan Review of Systems All systems reviewed & are unremarkable except as noted in HPI and below PFSH All Active Problems Discharge planning issues (Acute) DVT prophylaxis (Acute) Blunt head trauma (Acute) Closed fracture of neck of left femur (Acute 07/03/22) History of total right knee replacement (Acute 04/22/21) DOS 04/22/21 Encounter for colorectal cancer screening (Acute) Trochanteric bursitis of left hip (Acute) Right lumbar radiculitis (Chronic) Bursitis, prepatellar, left (Acute) Medical History Acne vulgaris ADHD Anxiety Arthritis of both hands Chronic cough Depression Eczema Fatigue Fibrocystic breast changes Fibromyalgia GERD (gastroesophageal reflux disease) History of cystocele Hoarseness Hx of ovarian cancer 1984 Hypothyroidism Impaired fasting glucose ROBINSON (obstructive sleep apnea) Restless leg Sciatica Sinusitis Surgical History History of arthroscopy of right knee History of cataract extraction History of hysterectomy Normal colonoscopy (~10/2020) Right wrist fracture s/p 3 surgeries including external fixation, and ORIF. Social History Smoking/Tobacco Use Status: Never Smoking risk assessment performed?: Yes Alcohol Intake: current Alcohol Intake frequency: 3 or more drinks per day Alcohol type: wine Drug use: Never Substance use type: does not use Current gender identity: female Do you feel safe at home: Yes Do you feel safe in your relationship?: Yes Exam Narrative Exam Narrative: Pleasant, alert, and comfortable resting hospital bed Easily demonstrates active range of motion without difficulty or deformity bilateral upper extremity right lower extremity Actually repositions herself in bed quite readily without significant left hip discomfort. Tolerates gentle logroll. Demonstrates intact motor throughout distal left lower extremity. Sensation tact throughout light touch. Thigh compartment soft. Minimal edema, no ecchymosis. Bilateral trochanters iliotibial is not vigorously tested today. Results Last Vital Signs Temp 98.0 F 07/04/22 14:00 Pulse 82 07/04/22 14:00 Resp 16 07/04/22 14:00 BP 139/79 07/04/22 14:00 Pulse Ox 95 07/04/22 14:00 Labs Result diagrams: 07/05/22 05:38 07/05/22 05:38 Imaging Imaging Studies: Left hip shows mildly displaced, subcapital valgus impacted femoral neck fracture. No significant comminution or posterior angulation appreciated. No significant hip arthrosis.
[2022-07-05] MEDS: Bupivacaine 0.5% Pres-Free W/EPI 30 ML VIAL (12:32)
--- NOTE | 2022-07-05 12:57 | ROE_ITS ---
Date of service: 07/05/22 Time of Service: 12:47 Operative Note Operative Note DATE OF PROCEDURE: 07/05/22 PRE-OP DIAGNOSIS: Left valgus impacted femoral neck fracture POST-OP DIAGNOSIS: same PROCEDURE: Left hip cannulated screw internal fixation, CPT# 94404 SURGEON: Aubrey Johnson ANESTHESIA TYPE: Local By Surgeon and General LMA/ETT Refer to Anesthesia Record ESTIMATED BLOOD LOSS: 5 COMPLICATIONS: None Patient was transported to: PACU Patient's condition: stable Implants: Synthes 7.3mm cannulated screws 16mm thread length: 80mm inferior, 75mm anterior superior and 75mm posterior superior Indications: Please see complete medical record for details. Findings: Stable, mildly valgus impacted femoral neck fracture Procedure Description: In the operating room, general anesthesia was induced. The patient was position ed supine on the operating room table. All bony prominences were well-padded. Preoperative antibiotics were administered. The left hip was prepped and draped in the usual sterile fashion. The correct patient, procedure, and side of the procedure were all verified prior to incision. The fracture was scrutinized fluoroscopically. It was mildly valgus impacted without any significant appreciable posterior comminution or angulation. The appropriate start point and surgical site on the lateral thigh was localized and the skin subcutaneous tissue down to bone were pretty injected with 30 cc of 0.5% bupivacaine containing epinephrine. A small lateral incision was made. The threaded guidewire was placed on the lateral proximal femoral cortex, centrally in the anterior posterior plane, and starting at the proximal margin of the lesser trochanter. This initial guidewire was directed into the central inferior femoral neck and then head with fluoroscopic guidance. Next, a superior posterior guidewire was placed slightly divergent posteriorly superiorly followed by a superior anterior guidewire placed similarly. All guidewires were sunk into subchondral bone. Depth gauge used followed by cannulated drill. The screws were sequentially placed over the guidewires, guidewires pulled back out of subchondral bone, and final tightening done. Final x-rays show appropriate maintained femoral neck fracture position and hardware placement. The small wound was copiously irrigated with normal saline. Subcutaneous tissue closed with 2-0 Monocryl buried erupted followed by 3-0 Monocryl buried interrupted for the skin. Skin glue applied over the incision followed by Mepilex bandage. The patient awoke from anesthesia without complication and was transferred to the recovery room in a stable condition. Lower extremities were examined with reasonably symmetrical length and rotation.
--- NOTE | 2022-07-05 13:05 | W.ANESPOSTOP ---
Postoperative Evaluation Date, Time and Location Date Performed: 07/05/22 Time Performed: 13:05 Patient Location: PACU Vital Signs Most Recent Imported Vital Signs: Most Recent Vital Signs Temp Pulse Resp BP Pulse Ox 37.3 C 78 18 154/92 H 98 07/05/22 08:05 07/05/22 08:05 07/05/22 08:05 07/05/22 08:05 07/05/22 08:05 Pain Score Most Recent Pain Score: Most Recent Pain Score Pain Level 7 07/05/22 08:49 Assessment Mental Status: Awake (Alert & Oriented to Patient Baseline) Airway and Respiratory Function: Patent airway with normal (patient baseline) respiratory exam Cardiovascular Function: Hemodynamically Stable Hydration Status: Adequately Hydrated Nausea & Vomiting: No Nausea or Vomiting Pain: Pt. Denies Any Pain (Post op 0/10) Peripheral Nerve Block: Patient did not receive a nerve block
--- NOTE | 2022-07-05 13:28 | W.PM.PROGNOT ---
Date of Service Date of service: 07/05/22 Time of Service: 13:01 Assessment and Plan Assessment and plan (1) Closed fracture of neck of left femur: Status: Acute Assessment and plan: 76-year-old female postop day #0 status post Left hip cannulated screw fixation Complete 24 hours postoperative antibiotics Discontinue Reardon catheter postop day #1 Pain control-Multimodal Physical therapy ordered: Weightbearing as tolerated with assist device (i.e., walker) at least 6-8 weeks. Chemical DVT prophylaxis ordered starting tomorrow morning assuming hemodynamically stable: Aspirin 81 mg twice daily x30 days probably appropriate for this ambulatory patient Continue mechanical DVT prophylaxis with SCDs and/or MANNY hose Discharge when medically appropriate Follow-up with Dr. Johnson outpatient [facility] in 2 to 3 weeks Appreciate medical management Subjective Subjective Interval history since last seen: No complaints Exam Narrative Exam Narrative: Resting in PACU, comfortable Left hip dressing clean dry intact. No significant edema or ecchymosis. Demonstrates intact motor and sensory throughout left lower extremity. Impressively able to demonstrate straight leg raise at this time Objective Last Vital Signs Temp 99.1 F 07/05/22 08:05 Pulse 78 07/05/22 08:05 Resp 18 07/05/22 08:05 BP 154/92 H 07/05/22 08:05 Pulse Ox 98 07/05/22 08:05 Laboratory Results - last 24 hr 07/04/22 07/04/22 07/04/22 15:35 15:53 15:53 WBC 7.52 RBC 4.05 Hgb 12.7 Hct 37.3 MCV 92 MCH 31.4 MCHC 34.0 RDW 13.0 Plt Count 281 MPV 9.2 Immature Gran % 0.4 Neutrophils % 76.1 Lymphocytes % 12.1 Monocytes % 7.7 Eosinophils % 3.3 Basophils % 0.4 Nucleated RBC % 0.0 Absolute Neutrophils 5.72 Absolute Lymphocytes 0.91 L Absolute Monocytes 0.58 Absolute Eosinophils 0.25 Absolute Basophils 0.03 Sodium 136 Potassium 3.9 Chloride 104 Carbon Dioxide 22.9 Anion Gap 9.1 BUN 11 Creatinine 0.8 Est GFR (CKD-EPI 2020) 76.79 Glucose 119 H Calcium 8.1 L Magnesium 2.0 Total Bilirubin 0.5 AST 24 ALT 26 Alkaline Phosphatase 82 Troponin I < 50 Total Protein 7.0 Albumin 3.8 COVID-19 Source Nasal/Nares SARS-CoV-2 (PCR) Negative Patient ABO/Rh Antibody Screen 07/04/22 07/05/22 07/05/22 15:53 05:38 05:38 WBC 5.21 RBC 3.82 L Hgb 11.8 Hct 35.1 L MCV 92 MCH 30.9 MCHC 33.6 RDW 13.2 Plt Count 276 MPV 9.6 Immature Gran % 0.2 Neutrophils % 68.4 Lymphocytes % 16.3 Monocytes % 8.1 Eosinophils % 6.0 Basophils % 1.0 Nucleated RBC % 0.0 Absolute Neutrophils 3.57 Absolute Lymphocytes 0.85 L Absolute Monocytes 0.42 Absolute Eosinophils 0.31 Absolute Basophils 0.05 Sodium 137 Potassium 3.7 Chloride 104 Carbon Dioxide 25.5 Anion Gap 7.5 BUN 7 Creatinine 0.6 Est GFR (CKD-EPI 2020) 93.55 Glucose 107 H Calcium 8.2 L Magnesium 1.7 L Total Bilirubin 0.6 AST 22 ALT 19 Alkaline Phosphatase 69 Troponin I Total Protein 6.1 L Albumin 3.3 L COVID-19 Source SARS-CoV-2 (PCR) Patient ABO/Rh A Positive Antibody Screen NEGATIVE PAWSS Have you Been Recently Intoxicated or Drunk Within the Last 30 days?: No Have you Ever Experienced Previous Episodes of Alcohol Withdrawal?: No Have you ever Experienced Withdrawal Seizures?: No Have you ever Experienced Delirium Tremens(DT)s?: No Have you ever undergone Alcohol Rehabilitation Treatment (i.e, inpt ot outpatient treatment programs)?: No Have you ever Experienced Blackouts?: No Have you ever Combined Alcohol with other Downers within the last 90 days?: No Have you ever Combined Alcohol with any other Substance of Abuse during the last 90 days?: No Result: 0 Time Spent with Patient Time Spent with Patient: <25 minutes Time was spent: counseling the patient
--- NOTE | 2022-07-05 15:22 | PHA.REVIEW2 ---
Pharmacy Admission Review - Admission Clinical Review (Last Reviewed 07/05/22 @ 11:33 by Aubrey Johnson MD) Discharge planning issues (Acute) DVT prophylaxis (Acute) Blunt head trauma (Acute) Closed fracture of neck of left femur (Acute 07/03/22) latex Allergy (Severe, Unverified 07/04/22 14:04) Anaphylaxsis Resuscitation Status Full Code Height 5 ft 2 in Weight 54.431 kg - Renal Dosing Renal Dosing: BUN 7 mg/dL (7-18) 07/05/22 05:38 Creatinine 0.6 mg/dL (0.55-1.02) 07/05/22 05:38 Medications needing adjustments: Reviewed List of meds needing interventions: eCrCl 41.8 ml/min - Anticoagulation Anticoagulation: Hgb 11.8 g/dL (11.2-15.7) 07/05/22 05:38 Hct 35.1 % (36.0-46.0) L 07/05/22 05:38 Plt Count 276 10^3/uL (130-400) 07/05/22 05:38 Creatinine 0.6 mg/dL (0.55-1.02) 07/05/22 05:38 DVT Prophylaxis: Reviewed Medications: Aspirin - Opiate Usage Evaluate Pain Scale/Pains Meds: Reviewed (hydromorphone 0.5-1 mg q4h prn) Scheduled Bowel Reg ordered if on Opiates?: Yes (prn orders) - Relevant Labs Sodium 137 mmol/L (136-145) 07/05/22 05:38 Potassium 3.7 mmol/L (3.5-5.1) 07/05/22 05:38 Chloride 104 mmol/L (98-107) 07/05/22 05:38 Magnesium 1.7 mg/dL (1.8-2.4) L 07/05/22 05:38 Electrolytes, C-Reactive P, ESR: Reviewed (magnesium 2gm IV given this AM) - DM Control DM Control: Glucose 107 mg/dL (74-106) H 07/05/22 05:38 DM Control: Reviewed - Cardiac Review Cardiac Review: Troponin I < 50 ng/L (<or=60) 07/04/22 15:53 BP, HR, EF%: Reviewed - Qtc Review QTc: Reviewed If Elevated, List meds needing intervention: QTc 438 on admission - IV to PO Switch IV Medications: Reviewed - Home Meds Home Med List reviewed: Reviewed Relevent Home Meds Not ordered & why?: Not ordered: methylphenidate (prn), cetirizine - Current meds Current Medication Order Review: Reviewed
[2022-07-05] MEDS: Acetaminophen 325 MG TAB PO ×2 (15:55→23:08)
[2022-07-05] MEDS: Lactated Ringers 1,000 ML 60 ML IV (16:14)
--- NOTE | 2022-07-05 17:38 | PGE_ITS ---
Date of Service Date of service: 07/05/22 Time of Service: 17:38 Assessment and Plan Assessment and plan (1) Closed fracture of neck of left femur: Status: Acute Assessment and plan: Left valgus impacted femoral neck fracture Pain control Orthopedics did percutaneous cannulated screw fixation today 07/05/22 without issues PT Reardon cath removed (2) Blunt head trauma: Status: Acute Assessment and plan: Lac - no bleeding, monitor for bleeding, dizziness, etc (3) DVT prophylaxis: Status: Acute Assessment and plan: Aspirin 81mg BID start today - TEDS or SCDs (4) Discharge planning issues: Status: Acute Assessment and plan: Home with home v community PT Discussed with Dr Farmer Subjective Subjective Patient reports: no new complaints, pain is less, tolerating a regular diet, bowel movement and afebrile; denies diarrhea, nausea, vomiting or shortness of breath Interval history since last seen: Awake, alert sitting upright in bed. She said she is hungry, drinking fluids, meal provided, no nausea. Exam Const General: no acute distress Orientation: alert HENIN Head: no palpable skull fracture Ears: external ears normal General nose exam: external nose normal Mouth: moist mucous membranes Eyes General: appearance normal, both eyes and all related structures Neck Neck: normal visual inspection and no JVD Chest Chest: no tenderness Resp Effort & Inspection: normal respiratory effort and able to speak in complete sentences Cardio Rate: regular rate GI Palpation: soft and nontender Skin General skin exam: no rashes or lesions noted Neuro General: patient alert and patient oriented x3 Extrem General: full ROM and capillary refill normal Other: Dressing dry, intact, lifting leg without assistance Psych Mental Status: mental status grossly normal Objective Last Vital Signs Temp 37.2 C 07/05/22 15:34 Pulse 83 07/05/22 15:34 Resp 16 07/05/22 15:34 BP 130/83 07/05/22 15:34 Pulse Ox 94 07/05/22 15:34 Laboratory Results - last 24 hr 07/05/22 07/05/22 05:38 05:38 WBC 5.21 RBC 3.82 L Hgb 11.8 Hct 35.1 L MCV 92 MCH 30.9 MCHC 33.6 RDW 13.2 Plt Count 276 MPV 9.6 Immature Gran % 0.2 Neutrophils % 68.4 Lymphocytes % 16.3 Monocytes % 8.1 Eosinophils % 6.0 Basophils % 1.0 Nucleated RBC % 0.0 Absolute Neutrophils 3.57 Absolute Lymphocytes 0.85 L Absolute Monocytes 0.42 Absolute Eosinophils 0.31 Absolute Basophils 0.05 Sodium 137 Potassium 3.7 Chloride 104 Carbon Dioxide 25.5 Anion Gap 7.5 BUN 7 Creatinine 0.6 Est GFR (CKD-EPI 2020) 93.55 Glucose 107 H Calcium 8.2 L Magnesium 1.7 L Total Bilirubin 0.6 AST 22 ALT 19 Alkaline Phosphatase 69 Total Protein 6.1 L Albumin 3.3 L PAWSS Have you Been Recently Intoxicated or Drunk Within the Last 30 days?: No Have you Ever Experienced Previous Episodes of Alcohol Withdrawal?: No Have you ever Experienced Withdrawal Seizures?: No Have you ever Experienced Delirium Tremens(DT)s?: No Have you ever undergone Alcohol Rehabilitation Treatment (i.e, inpt ot outpa tient treatment programs)?: No Have you ever Experienced Blackouts?: No Have you ever Combined Alcohol with other Downers within the last 90 days?: No Have you ever Combined Alcohol with any other Substance of Abuse during the last 90 days?: No Result: 0 Time Spent with Patient Time Spent with Patient: 25-34 minutes Time was spent: preparing to see the patient(eg.review tests), obtaining and/or reviewing separately otained hiistory, ordering medications,tests, procedures, referring, communicating with other health cardiac care unit nurse, indepentently interpreting results, counseling the patient and care coordination
[2022-07-05] MEDS: ceFAZolin 1 GM/50 ML BAG IVPB (20:03)
[2022-07-05] MEDS: Amitriptyline 10 MG TAB 20 MG PO (22:06)
[2022-07-05] MEDS: rOPINIRole 1 MG TAB 2 MG PO (22:06)
[2022-07-06] MEDS: Melatonin 3 MG TAB 9 MG PO (02:42)
[2022-07-06] MEDS: Ibuprofen 400 MG TAB PO ×3 (02:42→13:22)
[2022-07-06 02:58] VITALS: BP 151/78; PULSE 78; RESP 19; TEMP 36.6; O2SAT 97
[2022-07-06] MEDS: ceFAZolin 1 GM/50 ML BAG IVPB ×2 (04:11→12:24)
[2022-07-06] MEDS: Normal Saline Flush 10 ML SYR IVP ×3 (04:11→08:45)
[2022-07-06 06:14] LABS: Abs Immature Grans 0.03 10^3/uL (0.0-0.06); Absolute Basophil Count 0.02 10^3/uL (0.0-0.2); Absolute Eosinophil Count 0.09 10^3/uL (0.0-0.7); Absolute Lymphocyte Count 1.01 10^3/uL (1.2-3.4); Absolute Monocyte Count 0.72 10^3/uL (0.1-0.8); Basophils % 0.2; Eosinophils % 0.9; HGB 11.5 g/dL (11.2-15.7); Immature Grans % 0.3; MCH 31.2 pg (27.0-33.0); MCHC 33.8 % (32.0-36.0); MCV 92 fL (80-95); MPV 9.1 fL (8.0-11.0); Monocytes % 7.1; Neutrophils % 81.5; Platelet Count 271 10^3/uL (130-400); RBC 3.69 10^6/uL (3.93-5.22); RDW 12.9 % (11.7-14.6); RDW-SD 43.8 fL; WBC 10.07 10^3/uL (4.4-10.8)
[2022-07-06] MEDS: Levothyroxine 88 MCG TAB PO (06:22)
[2022-07-06 06:29] LABS: Anion Gap 9.7 mmol/L (3-11); BUN 13 mg/dL (7-18); CO2 25.3 mmol/L (21.0-32.0); CREATININE 0.7 mg/dL (0.55-1.02); Calcium 8.4 mg/dL (8.5-10.1); Chloride 104 mmol/L (98-107); Estimated GFR 90.14 (mL/min/1.73m2); Glucose 118 mg/dL (74-106); Potassium 3.8 mmol/L (3.5-5.1); Sodium 139 mmol/L (136-145)
[2022-07-06 07:37] VITALS: BP 146/80; PULSE 78; RESP 18; TEMP 37; O2SAT 98
[2022-07-06] MEDS: Omeprazole 20 MG CAPCR PO (08:18)
[2022-07-06] MEDS: DULoxetine 30 MG CAP PO (08:18)
[2022-07-06] MEDS: Lisinopril 10 MG TAB PO (08:18)
[2022-07-06] MEDS: Aspirin E.C. 81 MG TABEC PO (08:19)
[2022-07-06] MEDS: HYDROmorphone 2 MG/ML SYR IVP ×2 (08:44)
[2022-07-06] MEDS: Normal Saline 50 ML 200 ML IV (08:44)
--- NOTE | 2022-07-06 09:27 | IN_ITS ---
PT Notes Visit Reasons: Left Femoral Neck Fracture Physical Therapy Inpatient Initial Evaluation Date: 07/06/2022 Referring Doctor: Aubrey Johnson MD PT Orders: PT CONSULT: S/P Ortho surgery. WBAT R LE with assistive device Precautions: Fall. Standard. WBAT on R lE with AD. Patient Profile/Admitting Diagnosis: Marychuy is a 76-year-old female who presented to the ED on 07/04/2022 due to a fall the previous day resulting to a minimally displaced left valgus-impacted femoral neck fracture s/p ORIF on postoperative day 1. PMHX: All Active Problems?(Updated 07/04/22 @ 19:45 by Emmy Boggs NP) Discharge planning issues (Acute) DVT prophylaxis (Acute) Blunt head trauma (Acute) Closed fracture of neck of left femur (Acute 07/03/22) History of total right knee replacement (Acute 04/22/21) DOS 04/22/21 Encounter for colorectal cancer screening (Acute) Trochanteric bursitis of left hip (Acute) Right lumbar radiculitis (Chronic) Bursitis, prepatellar, left (Acute) Medical History? Acne vulgaris ADHD Anxiety Arthritis of both hands Chronic cough Depression Eczema Fatigue Fibrocystic breast changes Fibromyalgia GERD (gastroesophageal reflux disease) History of cystocele Hoarseness Hx of ovarian cancer 1984Hypothyroidism Impaired fasting glucose ROBINSON (obstructive sleep apnea) Restless leg Sciatica Sinusitis Surgical History? History of arthroscopy of right knee History of cataract extraction History of hysterectomy Normal colonoscopy (~10/2020) Right wrist fracture s/p 3 surgeries including external fixation, and ORIF. Social History/Home Situation: Lives with in a private home with 2 steps to enter with rails on both sides. She has noted flight of steps to her bedroom. Independent with all aspects of ADLs prior to surgery and an assistive device. Equipment Owned/DME: FWW, Subjective: Denies chest pain, headache, and lightheadedness throughout session. Objective: General Observation: Patient was on her way to the bathroom holding onto IV pole when PT came in. Mental Status: Alert and oriented as to person, place, time, and purpose. Able to pay attention, focus, and respond appropriately. Pain: Denies Vital Signs: WNL as closely monitored by nursing staff ROM: Right Lower Extremity: Hip flexion WFL. Hip abduction WFL. Knee flexion WFL. Ankle dorsiflexion WFL. Ankle plantarflexion WFL. Left Lower Extremity: Hip flexion WFL. Hip abduction WFL. Knee flexion WFL. Ankle dorsiflexion WFL. Ankle plantarflexion WFL. Strength: Right Lower Extremity: Hip flexors 5/5. Hip abductors 5/5. Knee flexors 5/5. Knee extensors 5/5. Ankle dorsiflexors 5/5. Ankle plantarflexors 5/5. Left Lower Extremity: Hip flexors 4/5. Hip abductors 4/5. Knee flexors 5/5. Knee extensors 5/5. Ankle dorsiflexors 4/5. Ankle plantarflexors 4/5. Bed Mobility/Transfers: Rolling independent Supine to sit independent Sit to supine independent Sit to stand independent Stand to sit independent Bed to reclining chair independent Reclining chair to bed independent Gait: Instructed patient with level surface ambulation of 500 feet independently with FWW. No loss of balance. No shortness of breath. Stairs: Completed 6 x 4-inch steps and 4 x 6-inch steps while holding onto B rails with step-to gait pattern with supervision. THERA EX: Instructed on HEP with written copy provided- gluteal sets x 5 with 5sh quads sest x 5 with 5 sh ankle DF/PF x 10 seated marches x 10 Balance: Static Sitting: Normal Dynamic Sitting: Normal Static Standing: Good Dynamic Standing: Fair Special Tests: Mobility Limitations Standardized Measure [facility] AM-PAC 6 clicks Basic Mobility Inpatient Short Form: Raw Score: 24 CMS Score: 0% deficit Informed Consent/Education: Patient was instructed in purpose of PT consult and plan of care. Agreeable to proceed with established PT POC to achieve personal goals. Assessment: Patient requires the use of a front wheel walker to maximize independence and reduce fall risk. Patient presents with clinical signs and symptoms consistent with current/admitting diagnoses that have resulted to mobility limitations, gait instability, generalized weakness, and overall ADL decline as demonstrated by the following impairment level findings: 1. Decreased strength to L hip major muscle groups 2. Impaired standing balance 3. Impaired activity tolerance Impairments are contributing to the following functional limitations: 1. Difficulty with ambulation without assistive device 2. Increased completion time for mobility ADL performance Patient is assessed as a [id number] moderate complexity based on the following: History: 76-year-old female with past medical history as indicated above Examination: Demonstrable impairment in strength, balance, and mobility level with underlying impairments and functional limitations as exhibited above as well as deficit score of 0% utilizing the [facility] Mobility Inpatient Short Form Presentation: Stable Decision Makin moderate complexity Goals: N/A. PT evaluation and 1 treatment session only for functional mobility training and HEP instruction. Plan of Care/Treatment Plan: N/A. PT evaluation and 1 treatment session only for functional mobility training and HEP instruction. DISCHARGE RECOMMENDATIONS: [] Home with no services [] [] Home with services [specify] [X] Home with outpatient PT. Home when medically cleared up by hospitalist/orthopedic surgeon. Recommend outpatient PT services to optimize functional mobility outcomes and facilitate independent community ambulation without an assistive device. [] SNF for continued rehabilitation [] [] [facility] [] [] SNF versus LTC based on ability to participate and progress [] TREATMENT CODE/TIME: 26923 x 21 minutes beginning at 9:27 AM. Thank you for the opportunity to participate in the care of this patient. Maryan Abebe PT, DPT, CLT [facility] [place], [place]
[2022-07-06 12:00] VITALS: BP 131/88; PULSE 95; RESP 18; TEMP 37.2; O2SAT 98
--- NOTE | 2022-07-06 14:50 | DSE_ITS ---
Date of service: 07/06/22 Time of Service: 14:50 DS: Diagnosis Discharge Diagnosis (1) Closed fracture of neck of left femur: Status: Acute (2) Blunt head trauma: Status: Acute Discharge Plan Disposition Patient Disposition: Home Condition: Improving Discharge Details Reason For Visit: Left Femoral Neck Fracture Admit Date/Time: 07/04/22 15:18 Admit Provider: Marc Lagunas Attending Provider: Marc Lagunas Primary Care Provider: Flor Martin Hospital Course Hospital Course: This is a 76 year old female patient that presented to the [facility] ED on 07/04/2022 after mechanical fall onto left side. Able to ambulate but with groin hip and thigh discomfort.? Found to have mildly displaced femoral neck fracture and admitted to hospitalist service.? Healthy and active.? Plays tennis regularly.? History of right total knee replacement with Dr. Joy last year, doing well.? Had issues after surgery with fibromyalgia flareup.? Also has longstanding history of bilateral iliotibial band syndrome treated at [facility].? No pre-existing arthritic problems, does not use ambulatory device, eager to get back to active lifestyle including tennis. Pain localizes to the left hip, groin, and radiates down the thigh.? Only other injury includes a scalp laceration. No LOC, no neck pain, no dizziness. TDAP updated. The following day she went to the OR and had a left hip cannulated screw internal fixation repair by Dr Johnson. She did well, was up with PT that day and nguyen catheter was discontinued. She was discharged to home on post op day 2. She lives with her and will do out pt PT. She is stable, no fever. Follow up with orthopedics. Discussed with Dr Lagunas Home Meds and New Rx's Prescriptions: New aspirin 81 mg Tablet,Delayed Release (Dr/Ec) 81 mg PO BID Qty: 0 0RF docusate sodium [Colace] 100 mg Capsule 100 mg PO TID PRN PRNQty: 0 0RF oxycodone 5 mg tablet 5 mg PO Q6H PRNQty: 20 0RF ondansetron 4 mg tablet,disintegrating 4 mg PO TID-QID PRNQty: 20 0RF Continued ascorbate calcium (vitamin C) 500 mg tablet 500 mg PO DAILY Move Free Ultra Faster Comfort 216 mg tablet 216 mg PO DAILY lisinopril 10 mg tablet 10 mg PO DAILY ferrous sulfate 27 mg iron tablet 65 mg PO DAILY levothyroxine 75 mcg tablet 88 mcg PO DAILY duloxetine [Cymbalta] 20 mg capsule,delayed release(DR/EC) 30 mg PO DAILY ropinirole 2 mg tablet 2 mg PO HS Adult Probiotic 3 billion cell capsule 3,000 mmu cells PO DAILY Rx Instructions: administer with a meal Cannabidoil CBD PO Label Comments: ran out of drops and hasn't needed the rub amitriptyline 10 MG tablet 1 - 2 tab PO HS acyclovir 15 GM ointment 1 ea Topical PRN omeprazole 20 MG capsule,delayed release(DR/EC) 20 mg PO DAILY fluticasone propionate 16 GM spray,suspension 2 spry NS DAILY PRN Label Comments: 01/03/15 per pt she uses mostly in the winter. jw Fish Oil 300 MG capsule 1 tab PO BID Zyrtec 10 MG capsule 10 mg PO DAILY calcium citrate-vitamin D3 [Citracal + D Maximum] 1 EACH tablet 1 tab PO DAILY acetaminophen 500 mg tablet 500 mg PO Q6H PRN (Reason: pain) Qty: 60 2RF ibuprofen [Advil] 200 mg Tablet 400 mg PO BID pseudoephedrine HCl [Sudafed] 30 mg Tablet 60 mg PO QAM PRN Eucerin,Urea Cream, Salycilic Acid (Compound Cream) 1 appful topical PRN PRN methylphenidate HCl 5 mg tablet 5 mg PO DAILY PRN PRN Label Comments: TAKE ONE TABLET BY MOUTH EVERY DAY NEEDED, TAKE PRIOR TO TASKS REQUIRING ATTENTION Grapefruit Oil 10 - 20 applic MISCELLANEOUS DAILY Rx Instructions: 10-20 drops in water of grapefruitseed extract oral dailiy turmeric-turmeric ext-pepper 500-3 mg Capsule 2 cap PO DAILY Discharge Instructions Instructions: Aspirin (By mouth), Oxycodone, Rapid Release (By mouth), Ondansetron (By mouth), ORIF of Hip Fracture (DC) Additional Instructions: * Take aspirin 81 mg twice a day for 30 days. You can take oxycodone for severe pain. I also sent a prescritpion for your for ondansetron incase the oxycodone causes nausea. * Weightbearing as tolerated with assistive device for example a walker for at least 6-8 weeks. * Follow up with Dr Johnson outpatient [facility] orthopedics in 2-3 weeks. Stand Alone Forms: Nursing Discharge Form Referrals: [facility] [Provider Group] - 07/26/22 9:00 am (S/P repair of left impacted femoral neck fracture on 07/05/2022) Aubrey Johnson MD [ [facility] STAFF PHYSICIAN] - 07/21/22 1:45 pm () Flor Martin MD [Primary Care Provider] - 07/16/22 1:30 pm () Activity:: Activity as Tolerated Equipment/Supplies:: No Equipment Needed Diet:: As Tolerated Discharge Orders Discharge Orders: Discharge Order (Routine); Ordered 07/06/22 Ordered By: Emmy Boggs Discharge Data Discharge Date/Time-TO BE ENTERED AT DEPARTURE: 07/06/22 15:34 DS: Summary Time Spent with Patient providing and/or coordinating discharge services: Greater than 30 minutes Status at Discharge Functional status at discharge: uses cane/walker Overall status at discharge: patient is progressing back to baseline Mental Status: mental status grossly normal Speech and Movement: speech and movement normal Mood: congruent mood Affect: normal affect Exam Psych Mental Status: mental status grossly normal Speech and Movement: speech and movement normal Mood: congruent mood Affect: normal affect DS: Data Vitals/I&O Vitals and I&O: Vital Signs Temperature 37.2 C 07/06/22 12:00 Temperature Source Tympanic 07/06/22 12:00 Pulse 95 H 07/06/22 12:00 Pulse Rhythm Regular 07/06/22 09:35 Respiratory Rate 18 07/06/22 12:00 Respiratory Effort Non-Labored 07/06/22 09:35 Respiratory Depth Normal 07/06/22 09:35 Respiratory Pattern Normal 07/06/22 09:35 Blood Pressure 131/88 07/06/22 12:00 Blood Pressure Position Sitting 07/04/22 14:00 Pulse Oximetry 98 07/06/22 12:00 Respiratory End-tidal CO2 30 07/05/22 13:35 Oxygen Delivery Method Room Air 07/06/22 12:00 Oxygen Flow Rate 0 07/06/22 12:00 Pain Level 2 07/06/22 13:22 Comment 07/05/22 08:05 Intake & Output 07/05/22 07/06/2223 23:59 11:59 23:59 Intake Total 1420 / 2392.917 719 / 769 50 / 769 Output Total 2475 / 3450 600 / 600 Balance -1055 / -1057.083 119 / 169 50 / 169 Intake: IV 999 / 1971.917 719 / 769 50 / 769 Oral 420 / 420 Output: Urine 2475 / 3450 600 / 600 Other: Urine Color Straw Yellow Straw Urine Appearance Clear Clear Urine Odor Normal Emesis Description None Voiding Methods Toilet Toilet Data Completed and Pending Labs on day of discharge: Labs from last 24 hours 07/06/22 07/06/22 06:01 06:01 WBC 10.07 RBC 3.69 L Hgb 11.5 Hct 34.0 L MCV 92 MCH 31.2 MCHC 33.8 RDW 12.9 Plt Count 271 MPV 9.1 Immature Gran % 0.3 Neutrophils % 81.5 Lymphocytes % 10.0 Monocytes % 7.1 Eosinophils % 0.9 Basophils % 0.2 Nucleated RBC % 0.0 Absolute Neutrophils 8.20 H Absolute Lymphocytes 1.01 L Absolute Monocytes 0.72 Absolute Eosinophils 0.09 Absolute Basophils 0.02 Sodium 139 Potassium 3.8 Chloride 104 Carbon Dioxide 25.3 Anion Gap 9.7 BUN 13 Creatinine 0.7 Est GFR (CKD-EPI 2020) 90.14 Glucose 118 H Calcium 8.4 L Magnesium 2.0 PFSH All Active Problems (Updated 07/07/22 @ 00:05 by EMILY GRAY) Blunt head trauma (Acute) Closed fracture of neck of left femur (Acute 07/03/22) History of total right knee replacement (Acute 04/22/21) DOS 04/22/21 Encounter for colorectal cancer screening (Acute) Trochanteric bursitis of left hip (Acute) Right lumbar radiculitis (Chronic) Bursitis, prepatellar, left (Acute) Medical History Acne vulgaris ADHD Anxiety Arthritis of both hands Chronic cough Depression Eczema Fatigue Fibrocystic breast changes Fibromyalgia GERD (gastroesophageal reflux disease) History of cystocele Hoarseness Hx of ovarian cancer 1983 Hypothyroidism Impaired fasting glucose ROBINSON (obstructive sleep apnea) Restless leg Sciatica Sinusitis Surgical History History of arthroscopy of right knee History of cataract extraction History of hysterectomy Normal colonoscopy (~10/2020) Right wrist fracture s/p 3 surgeries including external fixation, and ORIF. Social History Smoking/Tobacco Use Status: Never Smoking risk assessment performed?: Yes Alcohol Intake: current Alcohol Intake frequency: 3 or more drinks per day Alcohol type: wine Drug use: Never Substance use type: does not use Current gender identity: female Do you feel safe at home: Yes Do you feel safe in your relationship?: Yes Time Spent with Patient Time Spent with Patient: 45-69 minutes Time was spent: preparing to see the patient(eg.review tests), obtaining and/or reviewing separately otained hiistory, ordering medications,tests, procedures, referring, communicating with other health memory care director, indepentently interpreting results, counseling the patient and care coordination
--- NOTE | 2022-07-06 15:28 | CHAPLAIN ---
Marychuy was resting in bed when I visited. We had met when her brother in law, Freddy, was a patient here and was here for end of life care. Marychuy told me about her fall. She was up walking today. She is concerned most about missing her twice-weekly tennis game as she says this her tennis playing is a way to connect with friends and get out during the winter months. 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 Her son is a solar hot water installer on the other side of the [employer] and she has a daughter and grandchildren in [place].
--- NOTE | 2022-07-06 17:46 | PDOC.CMDIS ---
- If Service Date Differs Date of service: 07/06/22 Time of Service: 17:46 LACE Index Scoring Tool - Questions: Length of Stay (in days): 2 Acuity (Admit via E.D.?): Yes Comorbidities: Any Tumor E.D. Visits: 2 - Answers: Total Score: 9 Risk of Readmission: Low Risk Care Management Discharge Reason for Hospitalization: Left Femoral Neck Fracture Discharge Plan: Marychuy will return home today with no new services. Her will drive her home via private vehicle, and support her care needs at home. She will follow up with her PCP and discharge plan of care. Patient/Family Education Needs: Review discharge instructions and limitations, discussion of self care needs including ask me three.
== END 2022-07-06 15:34 | disposition home or self-care (01) | DRG 482 ==
LOC: ER 15:37 → MS 17:29
PROVIDERS: Nurse Practitioner Family; Student in an Organized Health Care Education/Training Program; Admitting Provider Family Medicine; Emergency Provider Emergency Medicine; PCP Family Medicine; Visit Provider Family Medicine
PROC: 0QS734Z Reposition Left Upper Femur with Internal Fixation Device, Percutaneous Approach (ICD-10-PCS; CPT 27235; principal; 2022-07-05 11:30)
DX: S72.012A Unspecified intracapsular fracture of left femur, initial encounter for closed fracture (principal); S09.8XXA Other specified injuries of head, initial encounter; M70.42 Prepatellar bursitis, left knee; M54.16 Radiculopathy, lumbar region; W01.0XXA Fall on same level from slipping, tripping and stumbling without subsequent striking against object, initial encounter; F41.9 Anxiety disorder, unspecified; Z96.651 Presence of right artificial knee joint; F32.A Depression, unspecified; M70.62 Trochanteric bursitis, left hip; M79.7 Fibromyalgia; K21.9 Gastro-esophageal reflux disease without esophagitis; Z85.43 Personal history of malignant neoplasm of ovary; G47.33 Obstructive sleep apnea (adult) (pediatric); G25.81 Restless legs syndrome; E03.9 Hypothyroidism, unspecified; R73.01 Impaired fasting glucose; S01.01XA Laceration without foreign body of scalp, initial encounter
CPT/HCPCS: 27235; 36415; 51702; 73552; 80048; 80053; 86850; 86900; 86901; 87635; 93005; 96375; 97162; 99223; 99285; 70450; 71045; 72125; 73501; 73502; 73590; 74019; 83735; 84484; 85025; 93010; 99222; 99232; 99239; J0690; J1100; J1170; J1885; J2250; J2405; J2704

== ENCOUNTER 2022-07-20 13:24 | Outpatient (CLI) | payer MEDICARE, BC, SELFPAY ==
--- NOTE | 2022-07-20 10:30 | DI.RAD_ITS ---
Exam(s) XR HIP LT AP LAT ONLY EXAM: XR HIP LT AP LAT ONLY CLINICAL HISTORY: LEFT FEMUR F/U. TECHNIQUE: 2D digital imaging was performed. COMPARISON: CR,XR XR ABDOMEN FLAT UPRIGHT from 07/04/2022 CR,XR XR HIP LT COMPLETE AP PELVIS from 07/04/2022 XR HIP LT IN OR from 07/05/2022 FINDINGS: Two views: Again noted are the recently placed 3 screws across the femoral neck fracture site. On the AP view t here is an additional vertically orientated fracture line below the most caudal screw in the femoral neck and extending towards the lesser trochanter. There is no avulsion of the lesser trochanter. IMPRESSION: Stable alignment when compared to intraoperative images of 07/05/2022. Additional vertical nondispla oswaldo fracture line in the lower femoral neck as described above. DATA REPOSITORY: RADIATION DOSE DELIVERED:
== END 2022-07-20 13:25 | disposition home or self-care (01) ==
LOC: DIORS 13:25
PROVIDERS: PCP Family Medicine; Referring Provider Family Medicine; Visit Provider Student in an Organized Health Care Education/Training Program
DX: S72.002A Fracture of unspecified part of neck of left femur, initial encounter for closed fracture (principal)
CPT/HCPCS: 73502

== ENCOUNTER 2022-08-03 10:51 | Outpatient (CLI) | payer MEDICARE, BC, SELFPAY ==
--- NOTE | 2022-08-03 10:30 | DI.RAD_ITS ---
Exam(s) XR HIP LT COMPLETE AP PELVIS EXAM: XR HIP LT COMPLETE AP PELVIS CLINICAL HISTORY: left femur f/u. TECHNIQUE: 2D digital imaging was performed. COMPARISON: CR XR HIP LT AP LAT ONLY from 07/20/2022 CR XR DEXA BONE DENSITY W/WO CODY from 08/03/2022 FINDINGS: No acute pelvic fractures. Three screws are noted cross the femoral neck fracture site the left hip. This appears unchanged and there is no significant displacement nor change in joint space of the le ft hip when compared to 07/20/2022. Left hip appear appears unremarkable as does the remainder of th e osseous pelvis. IMPRESSION: DATA REPOSITORY: RADIATION DOSE DELIVERED:
== END 2022-08-03 10:52 | disposition home or self-care (01) ==
LOC: DIORS 10:52
PROVIDERS: PCP Family Medicine; Referring Provider Family Medicine; Visit Provider Student in an Organized Health Care Education/Training Program
DX: S72.002A Fracture of unspecified part of neck of left femur, initial encounter for closed fracture (principal); X58.XXXA Exposure to other specified factors, initial encounter
CPT/HCPCS: 77080; 73502

== ENCOUNTER 2022-08-06 10:57 | Observation (INO) | payer MEDICARE, BC, SELFPAY ==
[2022-08-06] VITALS (12 sets, daily range): BP systolic 134–177; BP diastolic 69–96; PULSE 68–87; RESP 8–21; TEMP 35.9–36.9; O2SAT 94–100; BMI 21.2
--- NOTE | 2022-08-06 10:01 | W.ANESPRE ---
General Info Date of Service Date Performed: 08/06/22 Height: 5 ft 2.25 in Weight: 53.07 kg Body Mass Index (BMI): 21.2 Surgical Procedure: Operation Date: 08/06/22 12:20 Proposed Procedure Side Surgeon p Hip Total Hip Anterior, Bimentum, Cemented Stem Back-up Left Reymundo Joy MD Meds Allergies and Home Medications Allergies Allergy/AdvReac Type Severity Reaction Status Date / Time latex Allergy Severe Anaphylaxsi Unverified 08/04/22 15:09 s Home Medication Medication Instructions Recorded acyclovir 5 % topical ointment 1 ea topical PRN 11/16/13 amitriptyline 10 mg tablet 1 - 2 tab PO HS 11/16/13 cetirizine 10 mg capsule (Zyrtec) 10 mg PO DAILY 11/16/13 fluticasone propionate 50 2 spry NS DAILY PRN 11/16/13 mcg/actuation nasal spray,suspension omega-3 fatty acids 300 mg capsule 1 tab PO BID 11/16/13 (Fish Oil) omeprazole 20 mg capsule,delayed 20 mg PO DAILY 11/16/13 release calcium citrate 315 mg 1 tab PO DAILY 01/03/15 calcium-vitamin D3 6.25 mcg (250 unit) tablet (Citracal + Vitamin D Maximum) ascorbate calcium (vitamin C) 500 500 mg PO DAILY 04/09/19 mg tablet Eucerin,Urea Cream, Salycilic Acid 1 appful topical PRN PRN 06/14/19 (Compound Cream) ferrous sulfate 27 mg iron tablet 65 mg PO DAILY 06/14/19 Cannabidoil CBD PO 05/29/20 duloxetine 20 mg capsule,delayed 30 mg PO DAILY 05/29/20 release (Cymbalta) lactobacillus combination no.8 3 3,000 mmu cells PO DAILY 05/29/20 billion cell capsule (Adult Probiotic) levothyroxine 75 mcg tablet 88 mcg PO DAILY 05/29/20 ropinirole 2 mg tablet 2 mg PO HS 05/29/20 calcium fructoborate 216 mg tablet 216 mg PO DAILY 11/27/20 (Move Free Ultra Faster Comfort) lisinopril 10 mg tablet 10 mg PO DAILY 07/22/21 pseudoephedrine HCl 30 mg tablet 60 mg PO QAM PRN 11/15/21 (Sudafed) flavoring agent (bulk) (Grapefruit 10 - 20 applic miscellaneous DAILY 07/04/22 oil) methylphenidate HCl 5 mg tablet 5 mg PO DAILY PRN PRN 07/04/22 turmeric 500 mg-black pepper 2 cap PO DAILY 07/04/22 extract 3 mg capsule aspirin 81 mg tablet,delayed 81 mg PO BID #0 tabs 07/06/22 release docusate sodium 100 mg capsule 100 mg PO TID PRN PRN #0 caps 07/06/22 (Colace) acetaminophen 500 mg tablet 1,000 mg PO Q8H PRN pain #90 tabs 08/06/22 acetaminophen 500 mg tablet 500 mg PO PRN PRN 08/06/22 aspirin 81 mg tablet,delayed 81 mg PO BID 30 days #60 tabs 08/06/22 release celecoxib 200 mg capsule (Celebrex) 200 mg PO BID PRN #60 caps 08/06/22 dexamethasone 4 mg tablet 4 mg PO DAILY #2 tabs 08/06/22 ibuprofen 200 mg tablet (Advil) 200 mg PO Q6H PRN 08/06/22 melatonin 5 mg tablet 5 mg PO HS PRN 08/06/22 oxycodone 5 mg tablet 5 mg PO PRN PRN 08/06/22 oxycodone 5 mg tablet 5 mg PO Q6H PRN severe 08/06/22 post-operative pain #12 tabs Current Visit Medications: Current Medications Generic Name Dose Route Start Last Admin Trade Name Freq PRN Reason Stop Dose Admin Acetaminophen 1,000 mg 08/06/22 06:00 Acetaminophen 500 Mg Tab PO 08/06/22 16:00 PREOP FELISHA Celecoxib 400 mg 08/06/22 06:00 Celecoxib 200 Mg Cap PO 08/06/22 16:00 PREOP FELISHA Tranexamic Acid 1,000 mg/ 60 mls @ 360 mls/hr 08/06/22 06:00 Sodium Chloride IV 08/06/22 16:00 PREOP FELISHA Ringer's Solution 1,000 mls @ 80 mls/hr 08/06/22 06:00 IV 09/04/22 23:59 INFUSION FELISHA Cefazolin Sodium/Dextrose 2 gm in 50 mls @ 100 mls/hr 08/06/22 06:00 Ancef Duplex IVPB 09/04/22 23:59 PREOP FELISHA IV Miscellaneous Supplies 1 each 08/06/22 06:00 Iv Access IV 09/04/22 23:59 DIRECTED FELISHA Sodium Chloride 0 ml 08/06/22 06:00 Normal Saline Flush 10 Ml Syr IV 09/04/22 23:59 PRN PRN Sodium Chloride 0 ml 08/06/22 06:00 Normal Saline 10 Ml Vial IJ 09/04/22 23:59 DIRECTED PRN Sterile Water 0 ml 08/06/22 06:00 Water,Injection,Sterile 10 Ml Vial IJ 09/04/22 23:59 DIRECTED PRN PFSH Active Problems Active Problems: Problem Status Onset Code Closed displaced fracture of left femoral neck with malunion S72.002P Blunt head trauma S09.8XXA Closed fracture of neck of left femur 07/03/22 S72.002A History of total right knee replacement 04/22/21 Z96.651 Encounter for colorectal cancer screening Z12.11, Z12.12 Trochanteric bursitis of left hip M70.62 Right lumbar radiculitis M54.16 Bursitis, prepatellar, left M70.42 Medical History Medical History Acne vulgaris ADHD Anxiety Arthritis of both hands Chronic cough Depression Eczema Fatigue Fibrocystic breast changes Fibromyalgia GERD (gastroesophageal reflux disease) History of cystocele Hoarseness Hx of ovarian cancer 1983 Hypothyroidism Impaired fasting glucose ROBINSON (obstructive sleep apnea) Restless leg Sciatica Sinusitis Surgical History Surgical History History of arthroscopy of right knee History of cataract extraction History of hysterectomy Normal colonoscopy (~10/2020) Right wrist fracture s/p 3 surgeries including external fixation, and ORIF. Tobacco Smoking/Tobacco Use Status: Never Alcohol Alcohol Intake: current Alcohol intake frequency: 3 or more drinks per day Alcohol type: wine Substance Use Substance use: Never Substance use type: does not use Vital Signs and Lab Results Lab Results Blood Type / Crossmatch: No Data to Display Complete Blood Count: White Blood Count 6.49 10^3/uL (4.4-10.8) 08/06/22 11:28 Red Blood Count 4.03 10^6/uL (3.93-5.22) 08/06/22 11:28 Hemoglobin 12.3 g/dL (11.2-15.7) 08/06/22 11:28 Hematocrit 37.3 % (36.0-46.0) 08/06/22 11:28 Platelet Count 442 10^3/uL (130-400) H 08/06/22 11:28 Complete Metabolic Panel: Sodium 134 mmol/L (136-145) L 08/06/22 11:28 Potassium 4.2 mmol/L (3.5-5.1) 08/06/22 11:28 Chloride 100 mmol/L (98-107) 08/06/22 11:28 Carbon Dioxide 23.8 mmol/L (21.0-32.0) 08/06/22 11:28 BUN 12 mg/dL (7-18) 08/06/22 11:28 Creatinine 0.6 mg/dL (0.55-1.02) 08/06/22 11:28 Est GFR (CKD-EPI 2020) 93.55 (mL/min/1.73m2) 08/06/22 11:28 Calcium 9.0 mg/dL (8.5-10.1) 08/06/22 11:28 Glucose 102 mg/dL (74-106) 08/06/22 11:28 Liver Function Panel: No Data to Display Coagulation Panel: No Data to Display Cardiac Panel: No Data to Display Arterial Blood Gas: No Data to Display Venous Blood Gas: No Data to Display Pancreas Panel: No Data to Display Thyroid Panel: No Data to Display Infectious Disease: Coronavirus (COVID-19)(PCR) Negative (Negative) 08/06/22 11:50 Coronavirus 2019 Source Nasal/Nares 08/06/22 11:50 Blood Cultures: No Data to Display Toxicology Panel: No Data to Display Imaging and Studies Imaging and Studies Study information below may be from another EMR and interpreted by another provider. Please see original notes in EMR for more complete details. EKG Summary: 07/04/22: sinus rhythm. Anesthesia Assessment and Plan Anesthesia History Personal History: No History of Anesthesia Complications Family History: No Family History of Anesthesia Complications Exercise Tolerance Exercise Tolerance: Metabolic Equivalents>4 Pertinent Negatives Pertinent Negatives: No Symptoms of GERD, No Major Cardiovascular Symptoms or Complaints, No Major Pulmonary Symptoms or Complaints and No History of CVA/TIA Cardiac & Pulmonary Exam Cardiac Exam: Normal S1/S2 Heart Sounds Pulmonary Exam: Clear Bilateral Breath Sounds Implantable Cardiac Device Does patient have a Pacemaker or an ICD?: No Airway Exam Known Difficult Airway: No Mallampati Class: 1 Mouth Opening: Normal (> 3cm) Thyromental Distance: Greater than 3 cm Neck Range of Motion: Full ROM Neck Circumference: Normal Teeth Condition: Normal Dentition ASA Classification ASA Score: ASA 2 Emergency Case?: No NPO Status NPO Status: NPO Clears >2 hours, Solids >8 hours Anesthesia Plan Resuscitation Status: Full Code Anesthesia Technique: Spinal Anesthesia Airway Planned: Natural Airway Monitors Used: Standard Monitors
--- NOTE | 2022-08-06 11:00 | DSE_ITS ---
Date of service: 08/07/22 Time of Service: 12:16 DS: Diagnosis Discharge Diagnosis (1) Closed displaced fracture of left femoral neck with malunion: Status: Acute Discharge Plan Disposition Patient Disposition: Home W/Home Health Services Condition: Good Discharge Details Reason For Visit: Left Femoral Neck Fracture Admit Date/Time: 08/06/22 10:57 Admit Provider: Reymundo Joy Attending Provider: Reymundo Joy Primary Care Provider: Flor Martin Hospital Course Hospital Course: Patient was admitted to the medical/surgical floor following the procedure. The surgery was tolerated well without any notable medical, surgical, or anesthetic complications. Mobilization began postoperatively. She was voiding spontaneously. Vitals were stable. Physical therapy worked with the patient and was cleared for discharge home. No acute medical issues. Pain was controlled on oral regimen. Home Meds and New Rx's Prescriptions: New celecoxib [Celebrex] 200 mg capsule 200 mg PO BID PRNQty: 60 0RF Rx Instructions: Take one tablet twice daily for pain and inflammation aspirin 81 mg tablet,delayed release (DR/EC) 81 mg PO BID 30 Days Qty: 60 0RF acetaminophen 500 mg tablet 1,000 mg PO Q8H PRN Qty: 90 0RF Rx Instructions: Take two tablets up to every 8 hours as needed for pain dexamethasone 4 mg tablet 4 mg PO DAILY Qty: 2 0RF Rx Instructions: Take one tablet once daily for two days oxycodone 5 mg tablet 5 mg PO Q6H PRN (Reason: severe post-operative pain) Qty: 12 0RF Rx Instructions: Take one tablet up to every 6 hours as needed for severe pain Continued ascorbate calcium (vitamin C) 500 mg tablet 500 mg PO DAILY Move Free Ultra Faster Comfort 216 mg tablet 216 mg PO DAILY lisinopril 10 mg tablet 10 mg PO DAILY ferrous sulfate 27 mg iron tablet 65 mg PO DAILY levothyroxine 75 mcg tablet 88 mcg PO DAILY duloxetine [Cymbalta] 20 mg capsule,delayed release(DR/EC) 30 mg PO DAILY ropinirole 2 mg tablet 2 mg PO HS Adult Probiotic 3 billion cell capsule 3,000 mmu cells PO DAILY Rx Instructions: administer with a meal Cannabidoil CBD PO Patient Comments: ran out of drops and hasn't needed the rub amitriptyline 10 MG tablet 1 - 2 tab PO HS acyclovir 15 GM ointment 1 ea Topical PRN omeprazole 20 MG capsule,delayed release(DR/EC) 20 mg PO DAILY fluticasone propionate 16 GM spray,suspension 2 spry NS DAILY PRN Patient Comments: 01/03/15 per pt she uses mostly in the winter. jw Fish Oil 300 MG capsule 1 tab PO BID Zyrtec 10 MG capsule 10 mg PO DAILY calcium citrate-vitamin D3 [Citracal + D Maximum] 1 EACH tablet 1 tab PO DAILY pseudoephedrine HCl [Sudafed] 30 mg Tablet 60 mg PO QAM PRN Eucerin,Urea Cream, Salycilic Acid (Compound Cream) 1 appful topical PRN PRN methylphenidate HCl 5 mg tablet 5 mg PO DAILY PRN PRN Patient Comments: TAKE ONE TABLET BY MOUTH EVERY DAY NEEDED, TAKE PRIOR TO TASKS REQUIRING ATTENTION Grapefruit Oil 10 - 20 applic MISCELLANEOUS DAILY Rx Instructions: 10-20 drops in water of grapefruitseed extract oral dailiy turmeric-turmeric ext-pepper 500-3 mg Capsule 2 cap PO DAILY aspirin 81 mg Tablet,Delayed Release (Dr/Ec) 81 mg PO BID Qty: 0 0RF docusate sodium [Colace] 100 mg Capsule 100 mg PO TID PRN PRNQty: 0 0RF Discontinued acetaminophen 500 mg tablet 500 mg PO Q6H PRN (Reason: pain) Qty: 60 2RF ibuprofen [Advil] 200 mg Tablet 400 mg PO BID oxycodone 5 mg tablet 5 mg PO Q6H PRNQty: 20 0RF No Action oxycodone 5 mg Tablet 5 mg PO PRN PRN melatonin 5 mg Tablet 5 mg PO HS PRN acetaminophen 500 mg Tablet 500 mg PO PRN PRN ibuprofen [Advil] 200 mg Tablet 200 mg PO Q6H PRN Discharge Instructions Additional Instructions: Total Hip Discharge Instructions Activity: The most important activity is to walk. You should try to take short walks a few times a day. You have no restrictions on movement or positioning, but do not try to force what you do. You will find some stiffness and weakness with hip flexion (lifting your knee). Do not try to strengthen this too early, continue to practice walking and stairs and this will come. - Outpatient physical therapy can be helpful to help return you to a normal gait and improve your flexibility and strength. This can start within 2 weeks. - You should wear the MANNY hose on both legs for 2 weeks. Dressing: Keep the surgical dressing in place for at least one week. After the first week it may be removed and replace with light gauze and tape or nothing. It may get wet after 3 days but avoid soaking the dressing. If it gets wet, just lightly pat dry. It is important to always keep some gauze between skin folds, especially when you are sitting. Spend some time with the wound exposed when you are lying flat as the incision does wrinkle onto itself. Medications: - You should take Tylenol and an anti-inflammatory Celebrex as your primary pain control medications. If the Celebrex is too expensive or not covered, please call the office for another alternative (Advil/Ibuprofen or Naproxen/Aleve). - You have been prescribed a stronger pain medication Oxycodone for breakthrough pain, take as needed as prescribed. - You take a stomach acid reduction agent omeprazole at baseline - please continue to help reduce stomach acid and reflux. - You have also been prescribed Decadron to help with post-operative nausea and pain. You will take this for two days starting tomorrow. - You will be taking Aspirin 81mg twice a day for DVT prevention unless instructed otherwise. - If you have constipation you should take Colace or Miralax (both [id number]). It takes most people 3-4 days to have a bowel movement. Follow-up: 2 weeks If you have any acute concerns or questions, please do not hesitate to contact the office at [phone]. You may contact Dr. Joy with any questions after hours through the hospital at [phone] or on his cell phone at [phone]. Referrals: Reymundo Joy MD [ [facility] STAFF PHYSICIAN] - [facility] [Provider Group] Activity:: Activity as Tolerated Equipment/Supplies:: No Equipment Needed Diet:: As Tolerated Discharge Orders Discharge Orders: Discharge Order (Routine); Ordered 08/07/22 Ordered By: Reymundo Joy DS: Summary Time Spent with Patient providing and/or coordinating discharge services: Less than 30 minutes Status at Discharge Functional status at discharge: uses cane/walker Overall status at discharge: patient is progressing back to baseline Mental Status: mental status grossly normal Speech and Movement: speech and movement normal Mood: congruent mood Affect: normal affect Exam Narrative Exam Narrative: Sitting up eating. NAD. AAOx3. LLE dressing c/d/i. Some surrounding ecchynosis and hyperemia. No pain with hip flexion and knee extension. SILT Fem/Sciatic nerve distribution +ADF/APF/EHL/FHL No pain with hip ER/IR Psych Mental Status: mental status grossly normal Speech and Movement: speech and movement normal Mood: congruent mood Affect: normal affect DS: Data Vitals/I&O Vitals and I&O: Intake & Output 08/05/22 08/05/22 08/06/22 11:59 23:59 11:59 Weight 117 lb PFSH All Active Problems Closed displaced fracture of left femoral neck with malunion (Acute) Blunt head trauma (Acute) Closed fracture of neck of left femur (Acute 07/03/22) History of total right knee replacement (Acute 04/22/21) DOS 04/22/21 Encounter for colorectal cancer screening (Acute) Trochanteric bursitis of left hip (Acute) Right lumbar radiculitis (Chronic) Bursitis, prepatellar, left (Acute) Medical History Acne vulgaris ADHD Anxiety Arthritis of both hands Chronic cough Depression Eczema Fatigue Fibrocystic breast changes Fibromyalgia GERD (gastroesophageal reflux disease) History of cystocele Hoarseness Hx of ovarian cancer 1983 Hypothyroidism Impaired fasting glucose ROBINSON (obstructive sleep apnea) Restless leg Sciatica Sinusitis Surgical History History of arthroscopy of right knee History of cataract extraction History of hysterectomy Normal colonoscopy (~10/2020) Right wrist fracture s/p 3 surgeries including external fixation, and ORIF. Social History Smoking/Tobacco Use Status: Never Smoking risk assessment performed?: Yes Alcohol Intake: current Alcohol Intake frequency: 3 or more drinks per day Alcohol type: wine Drug use: Never Substance use type: does not use Current gender identity: female Do you feel safe at home: Yes Do you feel safe in your relationship?: Yes Time Spent with Patient Time Spent with Patient: <45 minutes Time was spent: preparing to see the patient(eg.review tests), obtaining and/or reviewing separately otained hiistory, ordering medications,tests, procedures and counseling the patient
--- NOTE | 2022-08-06 11:21 | HPE_ITS ---
Assessment and Plan Assessment and plan (1) Closed displaced fracture of left femoral neck with malunion: Status: Acute Assessment and plan: Marychuy is a 76-year-old who unfortunately suffered a subcapital femoral neck fracture which was fixed with screws but then developed a secondary basicervical vertical type fracture which is displaced. Given this fracture pattern and the displacement and pain I recommended we proceed with revision of the proximal femoral fracture by removal of the screws and placement of total hip arthroplasty. I would use a dual mobility construct for the hip to help lessen the risk of dislocation. Her bone quality below the intertrochanteric line looks quite healthy and since that medial stress in place my plan would be to use a typical hip implant rather than a diaphyseal fitting implant. I did discuss the potential complications to include fracture extension with the need for repeat procedures including a different implant, fracture of the trochanter. I also discussed other risk such as pain, stiffness, bleeding, infection, damage nerves and vessels, damage to muscle and tendons, ligaments inequality, blood clot. She currently notes of significant shortening of the left leg. Despite discussion of these risk she elects to proceed. History of Present Illness History of Present Illness Chief Complaint: Left Proximal Femoral Malunion Narrative: Marychuy is a 76-year-old female who suffered a valgus impacted femoral neck fracture. She was able to ambulate on this fracture initially. Given the fracture pattern she was 6-[address] Johnson[address] At her first posto p there is noted to be a vertical fracture line extending down to the lesser trochanter. However, at the time is nondisplaced. Unfortunately, over the ensuing few weeks she had increasing pain. Repeat x-rays showed that she had fracture completely through this basicervical region with displacement. The hip had shortened significantly to varus with backing out of the cannulated screws. She continues have pain. Disability with ambulation. She has notable shortening of the left leg all of which is causing her dysfunction. She is using assist devices at all times. She saw Dr. Johnson this past week who identified the issue and contact me for help with fixation. I called Marychuy and discussed this case with her over the phone once again today. She is here today for revision of her left proximal femur fracture with removal of hardware and total of arthroplasty. She denies any new medical issues. She denies any numbness or tingling. She denies any chest pain or shortness of breath. Review of Systems All systems reviewed & are unremarkable except as noted in HPI and below PFSH All Active Problems Closed displaced fracture of left femoral neck with malunion (Acute) Blunt head trauma (Acute) Closed fracture of neck of left femur (Acute 07/03/22) History of total right knee replacement (Acute 04/22/21) DOS 04/22/21 Encounter for colorectal cancer screening (Acute) Trochanteric bursitis of left hip (Acute) Right lumbar radiculitis (Chronic) Bursitis, prepatellar, left (Acute) Medical History Acne vulgaris ADHD Anxiety Arthritis of both hands Chronic cough Depression Eczema Fatigue Fibrocystic breast changes Fibromyalgia GERD (gastroesophageal reflux disease) History of cystocele Hoarseness Hx of ovarian cancer 1983 Hypothyroidism Impaired fasting glucose ROBINSON (obstructive sleep apnea) Restless leg Sciatica Sinusitis Surgical History History of arthroscopy of right knee History of cataract extraction History of hysterectomy Normal colonoscopy (~10/2020) Right wrist fracture s/p 3 surgeries including external fixation, and ORIF. Social History Smoking/Tobacco Use Status: Never Smoking risk assessment performed?: Yes Alcohol Intake: current Alcohol Intake frequency: 3 or more drinks per day Alcohol type: wine Drug use: Never Substance use type: does not use Current gender identity: female Do you feel safe at home: Yes Do you feel safe in your relationship?: Yes Meds Allergies and Home Medications Allergies Allergy/AdvReac Type Severity Reaction Status Date / Time latex Allergy Severe Anaphylaxsi Unverified 08/04/22 15:09 s Home Medications Medication Instructions Recorded Confirmed Type acyclovir 5 % topical ointment 1 ea topical PRN 11/16/13 08/06/22 History amitriptyline 10 mg tablet 1 - 2 tab PO HS 11/16/13 08/06/22 History cetirizine 10 mg capsule (Zyrtec) 10 mg PO DAILY 11/16/13 08/06/22 History fluticasone propionate 50 2 spry NS DAILY PRN 11/16/13 08/06/22 History mcg/actuation nasal spray,suspension omega-3 fatty acids 300 mg capsule 1 tab PO BID 11/16/13 08/06/22 History (Fish Oil) omeprazole 20 mg capsule,delayed 20 mg PO DAILY 11/16/13 08/06/22 History release calcium citrate 315 mg 1 tab PO DAILY 01/03/15 08/06/22 History calcium-vitamin D3 6.25 mcg (250 unit) tablet (Citracal + Vitamin D Maximum) ascorbate calcium (vitamin C) 500 500 mg PO DAILY 04/09/19 08/06/22 History mg tablet Eucerin,Urea Cream, Salycilic Acid 1 appful topical PRN PRN 06/14/19 08/06/22 History (Compound Cream) ferrous sulfate 27 mg iron tablet 65 mg PO DAILY 06/14/19 08/06/22 History Cannabidoil CBD PO 05/29/20 08/03/22 History duloxetine 20 mg capsule,delayed 30 mg PO DAILY 05/29/20 08/06/22 History release (Cymbalta) lactobacillus combination no.8 3 3,000 mmu cells PO DAILY 05/29/20 08/06/22 History billion cell capsule (Adult Probiotic) levothyroxine 75 mcg tablet 88 mcg PO DAILY 05/29/20 08/06/22 History ropinirole 2 mg tablet 2 mg PO HS 05/29/20 08/06/22 History calcium fructoborate 216 mg tablet 216 mg PO DAILY 11/27/20 08/06/22 History (Move Free Ultra Faster Comfort) lisinopril 10 mg tablet 10 mg PO DAILY 07/22/21 08/06/22 History pseudoephedrine HCl 30 mg tablet 60 mg PO QAM PRN 11/15/21 08/06/22 History (Sudafed) flavoring agent (bulk) (Grapefruit 10 - 20 applic miscellaneous DAILY 07/04/22 08/06/22 History oil) methylphenidate HCl 5 mg tablet 5 mg PO DAILY PRN PRN 07/04/22 08/06/22 History turmeric 500 mg-black pepper 2 cap PO DAILY 07/04/22 08/06/22 History extract 3 mg capsule aspirin 81 mg tablet,delayed 81 mg PO BID #0 tabs 07/06/22 08/06/22 Rx release docusate sodium 100 mg capsule 100 mg PO TID PRN PRN #0 caps 07/06/22 08/06/22 Rx (Colace) acetaminophen 500 mg tablet 1,000 mg PO Q8H PRN pain #90 tabs 08/06/22 Rx aspirin 81 mg tablet,delayed 81 mg PO BID 30 days #60 tabs 08/06/22 Rx release celecoxib 200 mg capsule (Celebrex) 200 mg PO BID PRN #60 caps 08/06/22 Rx dexamethasone 4 mg tablet 4 mg PO DAILY #2 tabs 08/06/22 Rx oxycodone 5 mg tablet 5 mg PO PRN PRN 08/06/22 08/06/22 History oxycodone 5 mg tablet 5 mg PO Q6H PRN severe 08/06/22 Rx post-operative pain #12 tabs Exam Const General: cooperative, healthy appearing, comfortable and no acute distress Resp Effort & Inspection: normal respiratory effort Auscultation: clear to auscultation bilaterally Cardio Rate: regular rate Rhythm: regular rhythm Results Imaging Imaging Studies: X-ray of the pelvis with the left hip demonstrates a displaced basicervical fracture in addition to the fixed subcapital femoral neck fracture. This does seem to extend all the way down to the base of the lesser trochanter. The screws are in varus position with backing out. No fracture line is appreciated down the femoral shaft itself. Labs 08/06/22 11:28 08/06/22 11:28
[2022-08-06 11:35] LABS: HCT 37.3 % (36.0-46.0); HGB 12.3 g/dL (11.2-15.7); MCH 30.5 pg (27.0-33.0); MCV 93 fL (80-95); MPV 8.3 fL (8.0-11.0); Platelet Count 442 10^3/uL (130-400); RBC 4.03 10^6/uL (3.93-5.22); RDW 13.6 % (11.7-14.6); RDW-SD 47.1 fL; WBC 6.49 10^3/uL (4.4-10.8)
[2022-08-06 11:55] LABS: Source Nasal/Nares
[2022-08-06 11:58] LABS: Anion Gap 10.2 mmol/L (3-11); BUN 12 mg/dL (7-18); CO2 23.8 mmol/L (21.0-32.0); CREATININE 0.6 mg/dL (0.55-1.02); Chloride 100 mmol/L (98-107); Estimated GFR 93.55 (mL/min/1.73m2); Glucose 102 mg/dL (74-106); Potassium 4.2 mmol/L (3.5-5.1); Sodium 134 mmol/L (136-145)
[2022-08-06 12:27] LABS: COVID-19 PCR Negative (Negative)
[2022-08-06] MEDS: Lactated Ringers 1,000 ML 80 ML IV ×2 (12:33→16:43)
[2022-08-06] MEDS: ceFAZolin 2 GM/50 ML BAG IVPB (12:42)
[2022-08-06] MEDS: Tranexamic Acid 1,000 MG/10 ML VIAL 1000 MG (13:13)
--- NOTE | 2022-08-06 14:35 | DI.RAD_ITS ---
Exam(s) XR HIP LT IN OR EXAM: XR HIP LT IN OR CLINICAL HISTORY: left total hip TECHNIQUE: 2D and realtime digital imaging was performed. CONTRAST MATERIAL: Refer to procedure report. COMPARISON: CR XR HIP LT COMPLETE AP PELVIS from 08/03/2022 FINDINGS: Fluoroscopy was provided for Dr. Joy during the performance of a left total hip arthroplasty. Please refer to the procedure report for complete details. Ka,r=8.9 mGy IMPRESSION: RADIATION DOSE DELIVERED:
--- NOTE | 2022-08-06 14:56 | W.PM.OP ---
Date of service: 08/06/22 Time of Service: 14:57 Operative Note Operative Note DATE OF PROCEDURE: 08/06/22 PRE-OP DIAGNOSIS: Left Proximal Femoral Malunion POST-OP DIAGNOSIS: same PROCEDURE: Left Anterior Total Hip Arthroplasty with Intraoperative Navigation Removal of Deep Hardware (separate incision) - Left Proximal Femur SURGEON: Reymundo Joy BUSINESS JOB TITLES: Ann Duncan ANESTHESIA TYPE: Spinal Refer to Anesthesia Record ESTIMATED BLOOD LOSS: 100 PATHOLOGY: none sent TOURNIQUET TIME: 0 COMPLICATIONS: None Patient was transported to: PACU Patient's condition: stable Implants: 1. Depuy Bimentum Dual Mobility Acetabular Component, 49mm 2. Depuy Bimentum Dual Mobility Liner, [id number] 3. Depuy Corail Standard Collared Femoral Stem, Size 11 4. Depuy Altrx Ceramic Femoral Head, Size 28+1.5mm Indications: Marychuy suffered a proximal femur fracture, impacted subcapital femoral neck fracture, about 4 weeks ago. She underwent cannulated screw fixation and was able to discharge to home. At her 2 week postop visit she was seen to have a new fracture line extending vertically to the lesser trochanter. She was kept protected weight bearing but unfortunately this fracture plane displaced. Therefore, I was called by Dr. Johnson to assist with management by a hip replacement for the displaced malunited proximal femoral fracture. I discussed the technical details of a hip replacement. I explained the risks of the procedure to include, but not limited to, bleeding, infection, pain, stiffness, fracture, damage to nerves and vessels, damage to muscles and tendons, loosening, instability, leg length inequality, need for repeat procedure, blood clot and cardiopulmonary demise. Despite these risks, Marychuy elected to proceed. Findings: The three 7.3mm screws were removed through the same small lateral incision. The proximal femur was not healed. There was a fracture line in the subcapital region as well as a vertical fracture from the mid portion of the femoral neck to the lesser trochanter, like a Pauwels III. A dual mobility hip replacement construct was implanted without complication or fracture propagation. Procedure Description: Marychuy was greeted in the preoperative holding area where the correct side was identified and marked. The consent was reviewed with the patient and signed. The history and physical was updated. All questions were answered. She was taken back to the operating room. A spinal anesthestic was then administered. The feet were wrapped with cast padding and Coban and then placed into the boot liners and then into the boots. Care was taken to protect the skin and make sure the heels were fully down and the boots were stable. The patient was then positioned onto the HANA table. Both legs were held in a neutral position. SCDs were applied. The patient was then slid down onto a peroneal post. Prophylactic antibiotics in the form of Cefazolin were administered. 1g of Tranxemic Acid was given intravenously within 30 minutes of incision. The left leg was then prepped with Chloraprep and draped in a standard fashion. A second prep with Chloraprep was performed prior to placement of a shower-curtain type drape with Iodine impregnated skin protection. A timeout to confirm correct identity, side and site, procedure, allergies, anesthesia, and medical concerns was performed. He cannulated screws from the proximal femur first removed. The previous incision was made over the lateral hip. This was taken down sharply through the IT band. Using the K wire from the cannulated 7.3 millimeter screw set I then cannulated each screw independently and removed with a screwdriver. These were taken out without difficulty. Once all 3 screws were removed the wound was thoroughly irrigated. It was closed at the end the case. Turning attention to the hip replacement, an obliquely oriented incision was made starting lateral to the ASIS and running distal over the Tensor Fascia Dominique (TFL) muscle belly toward the fibular head, approximately 10cm. The skin and soft tissue was dissected sharply, through Matilda?s fascia, and to the fascia of the TFL. With the fascia and superior border of the IT band identified, the fascia was incised with a new knife just above any perforators from the IT band. The TFL muscle belly was bluntly dissected away from the fascia and moved laterally. The fat between TFL and rectus was identified to ensure the dissection was not within the TFL. Blunt dissection created space between abductors and the capsule and retractor was placed over the lateral femoral neck. The fibers of the rectus femoris tendon were identified and these were freed from the anterior capsule. A second cobra retractor was placed around the medial femoral neck. The TFL was further retracted laterally to show the deep fascia. Careful dissection through this layer identified three main crossing vessels of the lateral femoral circumflex. These were cauterized in multiple locations and then cut without any noticeable bleeding. The TFL was further released bluntly from the deep fascia to expose anterior hip capsule and fat The Germain orthopaedic retractor was then placed beneath the TFL and against sartorius and medial soft tissues to protect and retract the soft tissues. A T-capsulotomy was then performed starting at the superior lateral acetabulum and moving distally to the intertrochanteric ridge. This anatomy was difficult to appreciate given the severe shortening and underlying fracture fragments. These capsular flaps were tagged with a No. 1 Ethibond and elevated from within. The capsular flaps were released to the shoulder of the lateral neck and to the lesser trochanter to give excellent visualization of the proximal femur. There is the obvious fracture of the subcapital femoral neck with some impaction and valgus orientation of the femoral head. However, there is also a very unstable vertical fracture running from the proximal aspect of the lesser trochanter out to the midportion of the femoral neck. There is significant comminution and lamination of bone. All of these pieces were removed with a rongeur. The head was removed with a corkscrew. An anterior retractor was placed over the anterior wall between capsule and labrum and attached to the Gripper retraction system. The femur was rotated to 90 degrees and medial capsule was fully released until the lesser trochanter was palpable and visible; the femur was returned to 30 degrees. A posterior retractor was placed similarly between capsule and labrum. This provided excellent visualization. The contents of the cotyloid fossa were removed with electrocautery and the labrum was removed with a knife. Acetabular reaming began with a 43mm reamer. This first reaming was directed anterior to posterior and medial to get down to the true floor. This was inspected and reamed until the true floor was reached. The anterior retractor was then released and entry and exit was provided by traction on the capsular flaps. I then reamed sequentially up to a 49mm reamer where good fit was obtained. The larger reamers were oriented based on anatomical reference of the anterior and lateral becerra to ensure proper abduction and anteversion. Positioning and size was confirmed with the fluoroscopy. A 49mm Depuy Bimentum Dual Mobility acetabular component was selected. The deep tissues were irrigated. The acetabular component was then impacted in a position of about 40-45 degrees of abduction and 15-20 degrees of anteversion, using the patient?s anatomy as the ultimate landmark. Fluoroscopy was used to confirm this. There was excellent inpatient care manager rn of the acetabular component and the inserting handle was removed. A portion of the felicia-articular cocktail was then injected around the acetabulum into the capsule and periosteum. This cocktail consisted of 123mg of Ropivacaine, 0.25mg of Epinephrine, 0.04mg of Clonidine, and 15mg of Ketorolac, diluted to 50cc. The leg was rotated to 120 degrees. Any remaining medial capsule was released until the lesser trochanter was easily palpable. A retractor was placed medially. The proximal femur was inspected here where the fracture was obliquely running through the bone in a vertical orientation with some struts of bone anteriorly and posteriorly. The lateral capsule was further released into the shoulder to allow access to the greater trochanter. A Lee retractor was placed over the greater trochanter which allowed the trochanter to flip in front of the capsule for excellent exposure. The leg was brought down into maximal extension and 20 degrees of adduction while ensuring there was no impingement on the acetabulum. Any remnant capsule within the trochanter was released. Piriformis and obturator externis were identified and protected. There was excellent access to the proximal femur. The lateral neck remnant was removed with a rongeur. A blunt canal probe was used to identify the canal and trajectory for later broaching. A box osteotome initiated the broach course. A small curved rasp and a curved curette were used to work laterally. Broaching then began with a size 8 Corail broach. This was inserted manually around the trochanter and into the canal before mallet blows. The broach was seated to a spot about 1cm above the lesser trochanter as based on preoperative templates. Sequential broaching was continued until a tight fit was obtained with good rotational control of the femur. A trial standard neck was inserted along with a +5 trial head. The leg was brought out of extension and adduction and then reduced with traction and internal rotation. The leg was stable anteriorly in a position of 30 degrees of extension and 90 degrees of external rotation. Fluoroscopy was used to ensure there was no fracture and the stem was seated well. Leg lengths were checked with an AP pelvis and pelvic reference points. WireImage navigation system was used to confirm appropriate positioning and leg length and offset. This showed slight overcorrection of the leg length and offest. This was also confirmed with an alignment harpreet. Once content with the desired offset and leg lengths, the leg was brought back into extension, external rotation and adduction. The periosteum and surrounding tissue was injected with remaining portion of the felicia-articular cocktail. The proximal femur was irrigated as well as the deep tissues. The proxial femur was inspected carefully and there was no fracture traversing distally. The Depuy Corail standard collared stem, size 11, was then manually inserted into the proximal femur making sure to control rotation. It was then malleted into position with light blows, giving breaks to allow bone expansion and decrease risk of fracture. The selected Depuy Altrx Ceramic Head, size 28+1.5mm, was then inserted into the Bimentum [id number] dual mobility liner. This was then placed onto the clean and dry trunnion and secured with impaction onto the tapered fit. The leg was brought back out of extension and adduction and reduced with traction and internal rotation. Stability was confirmed with no shuck at 90 degrees of external rotation and 30 degrees of extension. No impingement through range of motion arc. Final x-ray images were obtained with fluoroscopy to confirm adequate positioning and no intraoperative fracture. The deep tissues were thoroughly irrigated with Surgiphor, betadine solution. This was allowed to sit in the wound for 3 minutes before being thoroughly irrigated out with normal saline. The capsule was then reapproximated with the previously placed Ethibond sutures. The TFL fascia was finally closed with a No. 2 Stratafix, barbed suture. Deep tissues were then reapproximated with 0 Vicryl and a running 2-0 Vicryl. The skin was closed with a running 4-0 Monocryl in a subcuticular fashion. This was reinforced with skin glue. A Mepilex silver dressing was applied. At the end of the case, all counts were correct. Marychuy was transferred to the hospital bed without difficulty and suffering no apparent complication. Marychuy has a good prognosis. Physical therapy will start today and without restrictions, weight-bearing as tolerated. Aspirin 81mg BID will be used for DVT prophylaxis.
[2022-08-06] MEDS: ACETAMINOPHEN 1,000 MG/100 ML BTL 400 MG IVPB (15:33)
--- NOTE | 2022-08-06 16:23 | W.ANESPOSTOP ---
Postoperative Evaluation Date, Time and Location Date Performed: 08/06/22 Time Performed: 16:23 Patient Location: PACU Vital Signs Most Recent Imported Vital Signs: Most Recent Vital Signs Temp Pulse Resp BP Pulse Ox 35.9 C L 73 14 166/94 H 100 08/06/22 15:59 08/06/22 15:59 08/06/22 15:59 08/06/22 15:59 08/06/22 15:59 Pain Score Most Recent Pain Score: Most Recent Pain Score Pain Level 3 08/06/22 15:59 Assessment Mental Status: Awake (Alert & Oriented to Patient Baseline) Airway and Respiratory Function: Patent airway with normal (patient baseline) respiratory exam Cardiovascular Function: Hemodynamically Stable Hydration Status: Adequately Hydrated Nausea & Vomiting: No Nausea or Vomiting Pain: Pain is tolerable per patient Peripheral Nerve Block: Patient did not receive a nerve block
[2022-08-06] MEDS: Normal Saline Flush 10 ML SYR IV ×3 (16:43→23:45)
[2022-08-06] MEDS: HYDROmorphone 2 MG/ML VIAL 0.5 MG IVP ×2 (16:55→23:44)
[2022-08-06] MEDS: ceFAZolin 1 GM/50 ML BAG IVPB (18:04)
[2022-08-06] MEDS: oxyCODONE 5 MG TAB PO (18:29)
[2022-08-06] MEDS: Celecoxib 200 MG CAP PO (19:22)
[2022-08-06] MEDS: Acetaminophen 500 MG TAB 1000 MG PO (19:23)
[2022-08-06] MEDS: Aspirin E.C. 81 MG TABEC PO (19:24)
[2022-08-06] MEDS: Docusate Sodium 100 MG CAP PO (19:31)
[2022-08-06] MEDS: rOPINIRole 1 MG TAB 2 MG PO (21:13)
[2022-08-06] MEDS: Amitriptyline 10 MG TAB PO (21:14)
[2022-08-07] MEDS: Normal Saline Flush 10 ML SYR IV (01:44)
[2022-08-07] MEDS: Melatonin 3 MG TAB 6 MG PO (01:44)
[2022-08-07] MEDS: ceFAZolin 1 GM/50 ML BAG IVPB ×2 (01:45→11:15)
[2022-08-07] MEDS: oxyCODONE 5 MG TAB PO ×2 (03:01→09:33)
[2022-08-07 03:09] VITALS: BP 169/89; PULSE 82; RESP 18; TEMP 36.8; O2SAT 95
[2022-08-07] MEDS: Levothyroxine 88 MCG TAB PO (05:43)
[2022-08-07 07:14] VITALS: BP 134/78; PULSE 77; RESP 17; TEMP 36.5; O2SAT 96
[2022-08-07] MEDS: Omeprazole 20 MG CAPCR PO (08:33)
[2022-08-07] MEDS: Aspirin E.C. 81 MG TABEC PO (08:33)
[2022-08-07] MEDS: Lactobacillus Acidophilus CAP 1 CAP PO (08:33)
[2022-08-07] MEDS: Cetirizine 10 MG TAB PO (08:33)
[2022-08-07] MEDS: DULoxetine 30 MG CAP PO (08:33)
[2022-08-07] MEDS: Acetaminophen 500 MG TAB 1000 MG PO (08:33)
[2022-08-07] MEDS: Omega-3 Fatty Acids 1000 MG CAP PO (08:33)
[2022-08-07] MEDS: Dexamethasone 4 MG TAB PO (08:33)
[2022-08-07] MEDS: Ferrous Sulfate 325 MG TAB PO (08:34)
[2022-08-07] MEDS: Celecoxib 200 MG CAP PO (08:34)
[2022-08-07] MEDS: Lisinopril 10 MG TAB PO (08:34)
--- NOTE | 2022-08-07 08:56 | INITIAL_ITS ---
- If Service Date Differs Date of service: 08/07/22 Time of Service: 08:56 Care Management Initial Assess REASON FOR HOSPITALIZATION:: displaced fracture of left femoral neck with nonunion PAST MEDICAL HISTORY/PAST SURGICAL HISTORY:: All Active Problems . Closed displaced fracture of left femoral neck with malunion (Acute). Blunt head trauma (Acute). Closed fracture of neck of left femur (Acute 07/03/22). History of total right knee replacement (Acute 04/22/21). DOS 04/22/21. Encounter for colorectal cancer screening (Acute). Trochanteric bursitis of left hip (Acute). Right lumbar radiculitis (Chronic). Bursitis, prepatellar, left (Acute). Medical History . Acne vulgaris. ADHD. Anxiety. Arthritis of both hands. Chronic cough. Depression. Eczema. Fatigue. Fibrocystic breast changes. Fibromyalgia. GERD (gastroesophageal reflux disease). History of cystocele. Hoarseness. Hx of ovarian cancer. 1983. Hypothyroidism. Impaired fasting glucose. ROBINSON (obstructive sleep apnea). Restless leg. Sciatica. Sinusitis. Surgical History . History of arthroscopy of right knee. History of cataract extraction. History of hysterectomy. Normal colonoscopy (~10/2020). Right wrist fracture. s/p 3 surgeries including external fixation, PREVIOUS FUNCTIONAL STATUS/SOCIAL/FAMILY SUPPORTS:: Marychuy lives in [facility] with her , Geo. They have a son who is a nurse sane in [place], [place] and a daughter who lives in [place] with her and two children. 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 CURRENT FUNCTIONAL STATUS:: Marychuy was sitting up on the edge of her bed when JASON met with her. She was smiling and stated that she is feeling so much better today than last evening. Apparently she had some odd sensations following a dose of Dialudid and her pain was not well controlled. Today she is comfortable and is able to stand pain freee for the first time in a while. Dr. Joy visited Marychuy when JASON was meeting with her. He informed her that her surgery went well and she is free to walk as tolerated. She may shower starting tomorrow and will be given po medications for pain control. She will have outpatient PT. ADVANCE DIRECTIVES:: none on file at [facility] Has patient been provided with info about the portal/API?: Yes Did the patient sign up for the portal?: Yes (previously) CODE STATUS:: Full Code INSURANCE COVERAGE / FINANCIAL ISSUES:: Medicare. BC BS CURRENT HOME/COMMUNITY SERVICES/EQUIPMENT:: none PRIMARY CARE PHYSICIAN:: Flor Martin POTENTIAL DISCHARGE NEEDS:: follow up with surgeon and PCP PATIENT/FAMILY EDUCATION NEEDS:: Review discharge instructions, activity, follow up plan, and limitations, discussion of self care needs including ask me three. TRANSPORTATION:: Via private vehicle by family. PLAN:: Anticipate Marychuy will return home once medically cleared. Outpatient physical therapy has been ordered as recommended by RICKY Neves. Her family will transport her home via private vehicle. She will follow up with her surgeon, PCP and discharge plan of care. CM will continue to follow and assess for ongoing discharge concerns.
--- NOTE | 2022-08-07 09:16 | IN_ITS ---
PT Notes Visit Reasons: Left femoral neck fracture Inpatient Physical Therapy Evaluation Date: [08/07/22] Referring Doctor: Dr. Joy PT Orders: PT CONSULT: Precautions: Fall. Standard. WBAT on R lE with AD. Patient Profile/Admitting Diagnosis: s/p Left THR 08/06/22 PMHX: Marychuy is a 76-year-old who suffered a Leftvsubcapital femoral neck fracture which was fixed with screws June but then developed a secondary basicervical vertical type fracture which is displaced.?s/p THR 08/06/2022. All Active Problems? Closed displaced fracture of left femoral neck with malunion (Acute) Blunt head trauma (Acute) Closed fracture of neck of left femur (Acute 07/03/22) History of total right knee replacement (Acute 04/22/21) DOS 04/22/21Encounter for colorectal cancer screening (Acute) Trochanteric bursitis of left hip (Acute) Right lumbar radiculitis (Chronic) Bursitis, prepatellar, left (Acute) Social History/Home Situation: Lives with , has stairs with a walker at the base and at the top of the stairs with railing Current Functional Limitations: Ambulating with RW, WBAT prior to fall in June patient was ambulatory without AD and had been playing tennis. Has plans to travel to [place] in mid August hoping to be able to keep these plans. Equipment Owned/DME: RW, walking stick, recommend trekking poles for her trip Subjective: On presentation to the treatment room Marychuy states her pain is 4?5/10 and after medication and PT session pain is 1-2/10. Patient does discuss her plans to [place] in mid August and she is hoping to be able to make this trip. She also discusses that she has many rugs around the home which she needs to poultry picking machine tender the walker to be able to get over we will consider this with our treatment today. Patient also asked about home services versus outpatient and after evaluating we discussed her doing some exercises that she can do at home and start outpatient in 1 to 2 weeks per MD recommendations. Objective: General Observation: Patient is sitting up in bed and able to maneuver in bed and sit at edge of bed and sit to stand without instruction. Patient has tendency to poultry picking machine tender walker and we review this with her as she states that she has carpeting at home. Mental Status: A&O x3, understands surgery and all instructions Pain: At start of therapy 4?5 at end of therapy 1?08/06 patient was also medicated just prior to therapy Vital Signs: Monitored by nursing staff ROM: Right Upper Extremity: WFL Left Upper Extremity: WFL Right Lower Extremity: WFL Left Lower Extremity: Hip flexion 95, abduction 25, extension 0, knee extension 0 knee flexion 120+ Strength: Right Upper Extremity: WFL Left Upper Extremity: WFL Right Lower Extremity: WFL Left Lower Extremity: Quad 3/5, hip AB duction NT, hamstring 3/5, hip flexion 3/5 Sensation: Intact both LE Bed Mobility/Transfers: Independent Gait: Ambulating with rolling walker with supervision and verbal cueing to not lift the walker with weightbearing as tolerated. Ambulate x40 feet with a turn with minimal VC. Balance: Static Sitting: Good Dynamic Sitting: Good Static Standing: Good Dynamic Standing: At rolling walker Special Tests: Mobility Limitations Standardized Measure [facility] 6 clicks Basic Mobility Inpatient Short Form: Raw Score: 24 standardized Score: 61.14 CMS Score: 0 Informed Consent/Education: Patient instructed in purpose of PT consult and plan of care. Assessment: Patient is a 76year old female referred to physical therapy services with the diagnosis of s/p left THR. Patient presents with clinical signs and symptoms consistent with s/p left THR 08/06/22, as demonstrated by the following impairment level findings: WBAT with RW needs v/c to not lift walker and cautious with turningslow down 1.? Decreased strength to L hip major muscle groups 2.? Impaired standing balance 3.? Impaired activity tolerance Impairments are contributing to the following functional limitations: 1.? Difficulty with ambulation without assistive device 2.? Increased completion time for mobility ADL performance. Patient is assessed as a Low 23438 complexity based on the following: History: 76-year-old female with past medical history as indicated above Examination: Demonstrable impairment in strength, balance, and mobility level with underlying impairments and functional limitations as exhibited above as well as deficit score of 0% utilizing the [facility] Mobility Inpatient Short Form Presentation: Stable Decision Makin moderate complexity Goals: N/A.? PT evaluation and 1 treatment session only for functional mobility training and HEP instruction. Plan of Care/Treatment Plan: N/A.? PT evaluation and 1 treatment session only for functional mobility training and HEP instruction. DISCHARGE RECOMMENDATIONS: [] ? Home with no services [] [] ? Home with services [specify] [X] ? Home with outpatient PT. Home when medically cleared up by hospitalist/orthopedic surgeon.? Recommend outpatient PT services to optimize functional mobility outcomes and facilitate independent community ambulation without an assistive device. [] ? SNF for continued rehabilitation [] [] ? [facility] Care [] [] ? SNF versus LTC based on ability to participate and progress [] TREATMENT CODE/TIME: Treatment: THERA EX: Instructed on HEP with written copy provided- gluteal sets x 5 with 5sh ? ? ? quads sest x 5 with 5 sh ? ? ? ankle DF/PF x 10 ? ? ? seated marches x 10 Access Code: [email or web address] URL: [email or web address] Date: 08/07/2022 Prepared by: Pura Acosta For next week as outlined Exercises * Heel Raises with Counter Support - 2 x daily - 7 x weekly - 1 sets - 10 reps * Gastroc stretch counter - 2 x daily - 7 x weekly - 1 sets - 3 reps - 15 hold * Standing Hip Abduction with Counter Support - 2 x daily - 7 x weekly - 2 sets - 5 reps * Standing March with Counter Support - 2 x daily - 7 x weekly - 2 sets - 5 reps * Supine Quadricep Sets - 5 x daily - 7 x weekly - 1 sets - 10 reps - 5 hold * Supine Gluteal Sets - 5 x daily - 7 x weekly - 1 sets - 10 reps - 5 hold * Standing Gluteal Sets - 5 x daily - 7 x weekly - 1 sets - 10 reps - 5 hold * Supine Ankle Pumps - 5 x daily - 7 x weekly - 1 sets - 10 reps * Mini Squat with Counter Support - 2 x daily - 7 x weekly - 1 sets - 5 reps * Seated Knee Extension AROM - 2 x daily - 7 x weekly - 1 sets - 10 reps - 5 hold [id number], [id number] x20, 10' total 30 minutes beginning at 9:40 AM. Thank you for the opportunity to participate in the care of this patient. Pura Acosta,PT,SCS,ATC [facility], [facility] [place], [place]
[2022-08-07 11:19] VITALS: BP 136/74; PULSE 84; RESP 17; TEMP 36.9; O2SAT 95
--- NOTE | 2022-08-07 12:28 | PDOC.CMDIS ---
- If Service Date Differs Date of service: 08/07/22 Time of Service: 12:28 LACE Index Scoring Tool - Questions: Length of Stay (in days): 1 Acuity (Admit via E.D.?): No Comorbidities: Any Tumor E.D. Visits: 2 - Answers: Total Score: 5 Risk of Readmission: Low Risk Care Management Discharge Reason for Hospitalization: displaced fracture of left femoral neck with nonunion Discharge Plan: Marychuy with be discharged home with outpatient physical therapy. She will follow up with her surgeon, PCP and plan of care as prescribed. She may ambulate as tolerated and shower starting tomorrow. Marychuy will transport via private vehicle with her . Patient/Family Education Needs: Review discharge instructions, activity, follow up plan, and limitations, discussion of self care needs including ask me three.
== END 2022-08-07 13:02 | disposition home health service (06) ==
LOC: SUR 12:05 → MS 15:56
PROVIDERS: Admitting Provider Student in an Organized Health Care Education/Training Program; PCP Family Medicine; Visit Provider Student in an Organized Health Care Education/Training Program
PROC: (CPT 27130; principal; 2022-08-06 12:00)
DX: S72.002P Fracture of unspecified part of neck of left femur, subsequent encounter for closed fracture with malunion (principal); M70.62 Trochanteric bursitis, left hip; F41.9 Anxiety disorder, unspecified; F90.9 Attention-deficit hyperactivity disorder, unspecified type; R05.3 Chronic cough; M79.7 Fibromyalgia; K21.9 Gastro-esophageal reflux disease without esophagitis; Z85.43 Personal history of malignant neoplasm of ovary; E03.9 Hypothyroidism, unspecified; R73.01 Impaired fasting glucose; G25.81 Restless legs syndrome; M54.30 Sciatica, unspecified side; W19.XXXD Unspecified fall, subsequent encounter
CPT/HCPCS: 20985; 20680; 27130; C1776; 36415; 80048; 85027; 87635; 96365; 96366; 96367; 96375; 96376; 97161; 97530; 73501; G0378; J0131; J0690; J1100; J2250; J2405; J2704; J3010; J8540

== ENCOUNTER 2022-08-10 02:56 | Outpatient (CLI) | payer MEDICARE, BC, SELFPAY ==
--- NOTE | 2022-06-09 14:21 | DI.MAMMO_ITS ---
Exam(s) MAMMO SCREENING EXAM: MAMMO SCREENING CLINICAL HISTORY: SCREENING, Z12.31 TECHNIQUE: Bilateral full field digital CC and MLO mammographic images were obtained with 3D tomosyn thesis and utilizing computer aided detection (CAD). COMPARISON: Available for comparison. FINDINGS: Masses/Architectural Distortion: None seen. Microcalcifications: No suspicious pleomorphic-type are seen. Skin Thickening/Nipple Retraction: None. IMPRESSION: 1. No significant interval change with no specific features of malignancy noted. 2. Unless there is more urgent need, screening mammography is recommended, as per [employer] guidelines. BI-RADS Category 1 - Negative Breast Density - Category C - Heterogeneously dense Breast density category C or D implies that the patient has dense breast tissue. Dense breast tissue is very common and is not abnormal but dense breast tissue can make it harder to find cancer on a ma mmogram. Also, dense breast tissue may increase their breast cancer risk. This information about the result of the mammogram report was provided to the patient to raise their awareness. Use this report when you speak with the patient about their risks for breast cancer, which includes their family hist ory. At that time, you may recommend for more screening tests (Ultrasound or MRI) as they might be us eful based on their risk. A negative radiographic report should not delay biopsy if a dominant or clinically suspicious mass is present. Up to ten percent of cancers are not identified on mammography. A negative report may reinforce clinical impression. Adenosis and dense breasts may obscure an underlying neoplasm. False positive reports average 6 to 10%. Patient will receive a letter notifying them of these results.
--- NOTE | 2022-08-03 | DI.DEXA_ITS ---
Exam(s) XR DEXA BONE DENSITY W/WO CODY EXAM: XR DEXA BONE DENSITY W/WO CODY CLINICAL HISTORY: DISORDER OF BONE DENSITY STRUCTURE, M85.88 TECHNIQUE: Routine DEXA evaluation of the lumbar spine, hip, or forearm. COMPARISON: Prior DEXA scan of March 2018. FINDINGS: Performed on a Hologic unit. Lateral image: No compression fracture evident. Degenerative anterolisthesis L4 upon L5 noted as wel l as multilevel chronic disc space narrowing. Lumbar Spine total T-score: 1.9. Prior reading in 2018 was 1.5. Hip total T-score:-1.1. Independent reading at the level of the femoral neck yields T-score of -2.2 Forearm total T-score: -3.3 IMPRESSION: Bone mineral density measures in the osteopenia-bordering on osteoporosis range. Fracture risk is mod erate-high. Note: Any spine fracture indicates 5x risk for subsequent spine fracture and 2x risk for subsequent h ip fracture. World Health Organization criteria for BMD interpretation classify patients: Normal...... T- Score at or above -1.0 Osteopenic... T- Score between -1.0 and -2.5 Osteoporosis... T-Score at or below -2.5
== END 2022-12-07 15:18 ==
PROVIDERS: PCP Family Medicine; Visit Provider Family Medicine
DX: Z12.31 Encounter for screening mammogram for malignant neoplasm of breast (principal); M85.88 Other specified disorders of bone density and structure, other site
CPT/HCPCS: 77063; 77067; 77080

== ENCOUNTER 2022-08-16 15:53 | Outpatient (CLI) | payer MEDICARE, BC, SELFPAY ==
--- NOTE | 2022-08-16 15:45 | DI.RAD_ITS ---
Exam(s) XR HIP LT COMPLETE AP PELVIS EXAM: XR HIP LT COMPLETE AP PELVIS INDICATION: 1ST POST OP L [facility]ARA. COMPARISON: CR XR HIP LT COMPLETE AP PELVIS from 08/03/2022 XA XR HIP LT IN OR from 08/06/2022 TECHNIQUE: 2D digital imaging was performed. Two views. FINDINGS: There has been no change in the alignment of the left hip prosthesis. There are no surrounding bony lucencies. The right hip is unremarkable. DATA REPOSITORY: RADIATION DOSE DELIVERED:
== END 2022-08-16 15:54 | disposition home or self-care (01) ==
LOC: DIORS 15:53
PROVIDERS: PCP Family Medicine; Referring Provider Family Medicine; Visit Provider Student in an Organized Health Care Education/Training Program
DX: Z96.642 Presence of left artificial hip joint (principal); Z47.1 Aftercare following joint replacement surgery
CPT/HCPCS: 73502

== ENCOUNTER → 2022-10-08 10:45 | Outpatient (BNVA) | payer MEDICARE, BC, SELFPAY | PROVIDERS: PCP Family Medicine; Referring Provider Family Medicine; Visit Provider Student in an Organized Health Care Education/Training Program | DX: Z47.1 Aftercare following joint replacement surgery (principal); Z96.642 Presence of left artificial hip joint ==

== ENCOUNTER 2022-10-22 11:11 | Outpatient (CLI) | payer MEDICARE, BC, SELFPAY ==
--- NOTE | 2022-10-22 | DI.RAD_ITS ---
Exam(s) XR CHEST 2V PA LATERAL EXAM: XR CHEST 2V PA LATERAL CLINICAL HISTORY: COUGH, R05.8 TECHNIQUE: 2D digital imaging was performed. COMPARISON: CR XR CHEST 2V PA LATERAL from 10/16/2018 CR,XR XR PORTABLE CHEST AP from 07/04/2022 FINDINGS: HEART: Normal size. Aorta: Not dilated. PULMONARY VASCULATURE: Normal. LUNGS: Clear. PLEURAL SPACE: No pleural effusion or pneumothorax. BONE:Scoliosis and degenerative changes. No compression fractures. IMPRESSION: No acute abnormality. DATA REPOSITORY: RADIATION DOSE DELIVERED:
== END 2022-10-22 11:31 ==
LOC: DI 11:15
PROVIDERS: PCP Family Medicine; Visit Provider Family Medicine
DX: R05.8 Other specified cough (principal)
CPT/HCPCS: 71046

== ENCOUNTER 2022-12-10 13:42 | Outpatient (CLI) | payer MEDICARE, BC, SELFPAY ==
--- NOTE | 2022-12-10 | DI.CT_ITS ---
Exam(s) CT SINUS WO EXAM: CT SINUS WO CLINICAL HISTORY: RECURRENT SINUSITIS, J32.9. TECHNIQUE: Imaging Protocol: Axial computed tomography images with coronal and sagittal reformatted images were created and reviewed. No IV Contrast COMPARISON: CT CT HEAD CERVICAL SPINE WO from 07/04/2022 FINDINGS: MAXILLARY SINUSES: There is now complete opacification of the left maxillary sinus. Medial wall of the left maxillary s inus is thin. There appears to be medial wall bone dehiscence at this level. There is opacification of adjacent et hmoidal air cells.. Also opacification the ipsilateral frontoethmoidal recess. The left frontal sin us is completely opacified. Right frontal sinuses clear as are the right sided ethmoidal air cells. Sphenoid sinuses are clear. Mastoid air cells clear. The right maxillary sinus remains clear. OSTIOMEATAL UNITS: Right-side patent. Left side opacified. NASAL SEPTUM AND TURBINATES:Nasal septum is mildly deviated towards the right. There is no evidence of nasal septal spur. Left middle turbinate is opacified. Right nasal passages unremarkable. IMPRESSION: 1. Compared to 07/04/2022 there has been significant deterioration. There is complete opacification of the left maxillary sinus and left frontal sinus and there is opacification of multiple left-sided ethmoidal air cells. There is also an element of dehiscence of the medial wall of the left maxillar y sinus and the left ostiomeatal unit is poorly identified (when compared to the normal-appearing opp osite side) RADIATION DOSE DELIVERED: 115.54mGy.cm Total DLP DATA REPOSITORY: All CT scans at this facility are submitted to the National Radiology Data Registry (NRDR) Dose Index Registry (DIR) with the [employer] (ACR). RADIATION OPTIMIZATION: All CT scans at this facility use at least one of these dose optimization te chniques: automated exposure control; mA and/or kV adjustment per patient size (includes targeted exa ms where dose is matched to clinical indication); or iterative reconstruction.
== END 2022-12-10 14:02 ==
LOC: DI 13:43
PROVIDERS: PCP Family Medicine; Visit Provider Family Medicine
DX: J32.1 Chronic frontal sinusitis (principal)
CPT/HCPCS: 70486

== ENCOUNTER 2023-02-13 08:00 | Outpatient (REF) | payer MEDICARE, BC, SELFPAY ==
[2023-02-14 11:57] LABS: C Diff PCR Positive (Negative)
== END 2023-02-13 08:01 | disposition home or self-care (01) ==
LOC: NCHCN 08:00
PROVIDERS: PCP Family Medicine; Visit Provider Family Medicine
DX: R19.7 Diarrhea, unspecified (principal)
CPT/HCPCS: 87493

== ENCOUNTER 2023-02-14 14:50 | Outpatient (CLI) | payer MEDICARE, BC, SELFPAY ==
[2023-02-14 16:07] LABS: Anion Gap 10.9 mmol/L (3-11); BUN 6 mg/dL (7-18); CO2 24.1 mmol/L (21.0-32.0); Calcium 8.6 mg/dL (8.5-10.1); Calculated LDL 88 mg/dL (<100); Chloride 95 mmol/L (98-107); Cholesterol 142 mg/dL (<200); Estimated GFR 58.39 (mL/min/1.73m2); Glucose 99 mg/dL (74-106); HDL Cholesterol 36 mg/dL (40-60); Potassium 3.5 mmol/L (3.5-5.1); Sodium 130 mmol/L (136-145); Triglyceride 90 mg/dL (<150)
[2023-02-14 16:12] LABS: Vitamin D 25 Total 37.7 ng/mL (30-100)
[2023-02-14 16:54] LABS: Abs Immature Grans 0.04 10^3/uL (0.0-0.06); Absolute Basophil Count 0.07 10^3/uL (0.0-0.2); Absolute Lymphocyte Count 1.01 10^3/uL (1.2-3.4); Absolute Monocyte Count 0.74 10^3/uL (0.1-0.8); Absolute Neutrophil Count 5.21 10^3/uL (1.2-6.7); Basophils % 0.9; Eosinophils % 4.1; HCT 39.2 % (36.0-46.0); HGB 13.1 g/dL (11.2-15.7); Immature Grans % 0.5; Lymphocytes % 13.7; MCH 30.9 pg (27.0-33.0); MCHC 33.4 % (32.0-36.0); MCV 93 fL (80-95); MPV 9.2 fL (8.0-11.0); Neutrophils % 70.8; Platelet Count 467 10^3/uL (130-400); RBC 4.24 10^6/uL (3.93-5.22); RDW 13.4 % (11.7-14.6); RDW-SD 45.6 fL; WBC 7.37 10^3/uL (4.4-10.8)
== END 2023-02-14 14:51 | disposition home or self-care (01) ==
LOC: LBO 14:54
PROVIDERS: PCP Family Medicine; Visit Provider Family Medicine
DX: I10 Essential (primary) hypertension (principal); R19.7 Diarrhea, unspecified; G25.81 Restless legs syndrome; Z00.00 Encounter for general adult medical examination without abnormal findings
CPT/HCPCS: 36415; 80048; 80061; 82306; 85025

== ENCOUNTER 2023-03-18 14:18 | Outpatient (REF) | payer MEDICARE, BC, SELFPAY ==
[2023-03-18 19:13] LABS: Anion Gap 10.3 mmol/L (3-11); BUN 16 mg/dL (7-18); CO2 24.7 mmol/L (21.0-32.0); CREATININE 0.7 mg/dL (0.55-1.02); Calcium 8.9 mg/dL (8.5-10.1); Chloride 101 mmol/L (98-107); Estimated GFR 89.58 (mL/min/1.73m2); Glucose 96 mg/dL (74-106); Potassium 4.5 mmol/L (3.5-5.1); Sodium 136 mmol/L (136-145); TSH (W/Ref FT4) 2.28 uIU/mL (0.36-3.74); Vitamin B12 568 pg/mL (193-986)
[2023-03-18 19:20] LABS: Folate > 20.0 ng/mL (8.6-20.0)
== END 2023-03-18 14:19 | disposition home or self-care (01) ==
LOC: NCHCN 14:18
PROVIDERS: PCP Family Medicine; Visit Provider Family Medicine
DX: E03.9 Hypothyroidism, unspecified (principal); I10 Essential (primary) hypertension; R53.83 Other fatigue; G25.81 Restless legs syndrome; Z79.899 Other long term (current) drug therapy
CPT/HCPCS: 80048; 82607; 82746; 84443

== ENCOUNTER → 2023-04-12 16:11 | Outpatient (CLI) | payer MEDICARE, BC, SELFPAY ==
--- NOTE | 2023-04-12 | DI.US_ITS ---
APPROVED REPORT EXAM: Comprehensive 2D, Doppler, and color-flow Echocardiogram Patient Location: Out-Patient [facility] Winder: Jennifer Meza RDCS (AE) Indications: systolic heart murmur Other Information Study Quality: Adequate Conclusion Normal left ventricular wall thickness and chamber size. Ejection fraction is 55%. Wall motion is n ormal. There is stage I diastolic dysfunction Normal right ventricular size and systolic function Both atria are normal in size Trileaflet aortic valve with trace regurgitation Normal mitral valve with trace to mild regurgitation Normal tricuspid valve with trace regurgitation. Estimated right ventricular systolic pressure is 24 mmHg Wall motion Left Ventricle The left ventricle is normal size. The left ventricular systolic function is normal. The left ventric ular ejection fraction is within the normal range. There is normal left ventricular wall thickness. T here is normal LV segmental wall motion. There is no ventricular septal defect visualized. LVEF is 55 %. Right Ventricle The right ventricle is normal size. The right ventricular systolic function is normal. Atria The left atrium size is normal. The right atrium size is normal. The interatrial septum is intact wit h no evidence for an atrial septal defect. Aortic Valve The aortic valve is normal in structure. Aortic valve is trileaflet. There is no aortic valvular sten osis. Trace aortic regurgitation. Mitral Valve The mitral valve is normal in structure. No evidence of mitral valve stenosis. Trace to mild mitral r egurgitation. Tricuspid Valve The tricuspid valve is normal in structure. There is no tricuspid valve stenosis. Trace tricuspid reg urgitation. The RVSP is 24.1 mmHg. Pulmonic Valve The pulmonary valve is normal in structure. There is no pulmonic valvular stenosis. There is no pulmo doris valvular regurgitation. Great Vessels The aortic root is normal in size. The ascending aorta is normal in size. Aortic arch is normal in ca liber. IVC is normal in size and collapses >50% with inspiration. Pericardium There is no pericardial effusion. 2D Dimensions IVSD d PLAX 0.62 cm F: 0.6-1.0 Ao Root d 2.81 cm F: 2.7 - 3.3 LVPW d PLAX 0.64 cm F: 0.6 - 1.0 Ao Asc Diam d 3.06 cm F: 2.3 - 3.1 LVID d PLAX 3.59 cm F: 3.8 - 5.2 LVDs 2.60 cm F: 2.2 - 3.5 LV EF Teichholz 54.7 % FS 27.73 % LV EDV (Teich) 54.2 mL LV ESV (Teich) 24.5 mL M-Mode TAPSE 2.56 cm (M/F) >1.7 Auto EF LV EDV A4C 72.5 mL LV EDV A2C 88.9 mL LV EDV BP 80.0 mL LV ESV A4C 37.0 mL LV ESV A2C 42.3 mL LV ESV BP 39.1 mL LVEF(%) A4C 48.9 % LVEF(%) A2C 52.4 % LVEF(%) BP 51.1 % LV SV A4C 35.4 ml LV SV A2C 46.6 ml LV SV BP 40.9 ml LV CO A4C 2.8 L/min LV CO A2C 3.7 L/min LV CO BP 3.2 L/min HR A4C 78.95 BPM HR A2C 79.29 BPM LV EDV Index (BP) LA Volume LA Length A4C 4.6 cm LA Length A2C 4.4 cm LA Area A4C s 11.79 cm2 LA Area A2C s 13.23 cm2 LA Vol A4C A-L 25.41 mL LA Vol A2C A-L 33.83 mL LA Vol Biplane A-L 30.1 mL LA Vol/BSA A4C A-L LA Vol/BSA A2C A-L LA Vol/BSA BP A-L 19.7 mL/m2 LA Vol A4C MOD 23.5 mL LA Vol A2C MOD 29.3 mL LA Vol BP MOD 26.8 mL RA Volume RA Area A4C 10.0 cm2 RA ESV A4C (A-L) 22.0mL RA Vol/BSA A4C A-L RA Length A4C 3.8 cm RA ESV A4C (MOD) 21.2mL LV Diastology MV E' medial 0.116 (>0.07 m/s) MV E Vmax 0.75 (0.4-1.3 m/s) MV E/E' MED 6.51 (<14) MV A Vmax 1.10 (0.4-1.3 m/s) MV E' lateral 0.097 (>0.1 m/s) E/A Ratio 0.7 MV E/E' LAT 7.74 (<14) MV E' Average 0.107 m/s MV E/E'(average) 7.07 Aortic Valve AoV Vmax 1.39 m/s LVOT Vmax 1.18 m/s AoV Peak Grad 7.7 mmHg LVOT Peak Grad 5.5 mmHg AoV Area (Vmax) 2.76 cm2 LVOT VTI 0.232 m AoV VTI 0.300 m LVOT Mean Grad 3.2 mmHg AoV Mean Efraín. 1.00 m/s LVOT SV 75.87 mL AoV Mean Grad 4.5 mmHg LVOT Diam s 2.00 cm AoV Area (VTI) 2.53 cm2 Velocity Ratio 0.85 Mitral Valve MV DT 271 (160-240 msec) MV Vmax TIPS 1.06 m/s MV Mean Grad 2.2 (<2mmHg) MV VTI 0.277 m Tricuspid Valve RA Pressure 3.00 mmHg TR Vmax 2.30 m/s TV S' 0.14 m/s TR Peak Grad 21.1 mmHg RVSP (TR) 24.1 mmHg
== END ==
PROVIDERS: PCP Family Medicine; Visit Provider Family Medicine
DX: R01.1 Cardiac murmur, unspecified (principal)
CPT/HCPCS: 93306

== ENCOUNTER 2023-05-13 10:41 | Outpatient (CLI) | payer MEDICARE, BC, SELFPAY ==
--- NOTE | 2023-05-13 10:30 | DI.RAD_ITS ---
Exam(s) XR KNEE RT 2V AP,LAT EXAM: XR KNEE RT 2V AP,LAT CLINICAL HISTORY: ANNUAL F/U R [facility]. TECHNIQUE: 2D digital imaging was performed. COMPARISON: CR XR STANDING ALIGNMENT from 05/07/2021 CR XR KNEE RT 1V from 05/07/2021 CR XR KNEE RT 2V AP,LAT from 04/22/2022 FINDINGS: 3 views Stable position and alignment of the components of the prosthesis. Thin linear lucency subjacent to the tibial plateau component is unchanged from March 2022 and 2020. No significant osseous lesions. IMPRESSION: As above. Unchanged from studies listed above. DATA REPOSITORY: RADIATION DOSE DELIVERED:
== END 2023-05-13 10:42 | disposition home or self-care (01) ==
LOC: DIORS 10:41
PROVIDERS: PCP Family Medicine; Referring Provider Family Medicine; Visit Provider Student in an Organized Health Care Education/Training Program
DX: Z47.1 Aftercare following joint replacement surgery (principal); M70.51 Other bursitis of knee, right knee; M17.12 Unilateral primary osteoarthritis, left knee; R53.81 Other malaise; Z96.651 Presence of right artificial knee joint
CPT/HCPCS: 99213; 73560

== ENCOUNTER 2023-07-29 11:33 | Outpatient (CLI) | payer MEDICARE, BC, SELFPAY ==
--- NOTE | 2023-07-29 09:45 | DI.RAD_ITS ---
Exam(s) XR HIP LT AP LAT ONLY EXAM: XR HIP LT AP LAT ONLY CLINICAL HISTORY: ANNUAL F/U L [facility]ARA. TECHNIQUE: 2D digital imaging was performed. COMPARISON: CR XR HIP LT COMPLETE AP PELVIS from 08/16/2022 FINDINGS: Two views. Stable position alignment of the components of the left hip prosthesis. No fracture or loosening spring dent. IMPRESSION: Stable satisfactory appearance. DATA REPOSITORY: RADIATION DOSE DELIVERED:
== END 2023-07-29 11:34 | disposition home or self-care (01) ==
LOC: DIORS 11:34
PROVIDERS: PCP Family Medicine; Referring Provider Family Medicine; Visit Provider Student in an Organized Health Care Education/Training Program
DX: Z96.642 Presence of left artificial hip joint (principal); Z47.1 Aftercare following joint replacement surgery
CPT/HCPCS: 99213; 73502

== ENCOUNTER → 2023-11-30 04:29 | Outpatient (CLI) | payer MEDICARE, BC, SELFPAY ==
--- NOTE | 2023-11-30 08:00 | DI.CT_ITS ---
Exam(s) CT SINUS WO EXAM: CT SINUS WO CLINICAL HISTORY: Persistent symptoms of chronic sinusitis, hx clostridioides diff colitis,. Evalua te for sinusitis. TECHNIQUE: Imaging Protocol: Axial computed tomography images with coronal and sagittal reformatted images were created and reviewed. COMPARISON: CT CT SINUS WO from 12/10/2022 FINDINGS: AXIAL IMAGES: Frontal sinuses: Normally aerated. Ethmoid air cells: Normally aerated. Maxillary sinuses: There is complete opacification of the left maxillary sinus with thickening of the wall of the sinus consistent with chronic sinus disease. There is disruption of the floor of the le ft maxillary sinus. Sphenoid sinus: Normally aerated. Ostiomeatal complexes: There is obstruction of the left ostiomeatal complex. The right ostiomeatal c omplex is unremarkable. Osseous nasal septum: Midline. Visualized regional soft tissues: No acute findings. Orbits: Unremarkable. Bones: Unremarkable. Mastoid Air Cells: Normally aerated. IMPRESSION: Findings of chronic sinusitis involving the left maxillary sinus with complete opacification of the s inus and thickening of the becerra. There is disruption of the floor of the left maxillary sinus suspic ious for an erosion. No abscess is seen. RADIATION DOSE DELIVERED: 100.39mGy.cm Total DLP 100.39mGy.cm Total DLP DATA REPOSITORY: All CT scans at this facility are submitted to the National Radiology Data Registry (NRDR) Dose Index Registry (DIR) with the [employer] (ACR). RADIATION OPTIMIZATION: All CT scans at this facility use at least one of these dose optimization te chniques: automated exposure control; mA and/or kV adjustment per patient size (includes targeted exa ms where dose is matched to clinical indication); or iterative reconstruction.
== END ==
PROVIDERS: PCP Family Medicine; Visit Provider Otolaryngology
DX: J32.9 Chronic sinusitis, unspecified (principal); Z86.19 Personal history of other infectious and parasitic diseases; R09.82 Postnasal drip
CPT/HCPCS: 70486

== ENCOUNTER → 2024-04-19 13:56 | Outpatient (BNVA) | payer MEDICARE, BC, SELFPAY | PROVIDERS: PCP Family Medicine; Referring Provider Family Medicine; Visit Provider Student in an Organized Health Care Education/Training Program | DX: M76.51 Patellar tendinitis, right knee (principal) | CPT/HCPCS: 99213 ==

== ENCOUNTER 2024-05-11 11:55 | Outpatient (CLI) | payer MEDICARE, BC, SELFPAY ==
--- NOTE | 2024-05-11 11:30 | DI.RAD_ITS ---
Exam(s) XR KNEE RT 2V AP,LAT EXAM: XR KNEE RT 2V AP,LAT INDICATION: Z96.651 Prescence of RT artificial knee joint, RIGHT KNEE PAIN. COMPARISON: CR XR KNEE RT 1V from 05/07/2021 CR XR KNEE RT 2V AP,LAT from 04/22/2022 CR XR KNEE RT 2V AP,LAT from 05/13/2023 TECHNIQUE: 2D digital imaging was performed. Two views. FINDINGS: Stable alignment total knee prosthesis. Stable lucency at the anterior lateral proximal tibia at the interface with the prosthesis. Small joint effusion. DATA REPOSITORY: RADIATION DOSE DELIVERED:
== END 2024-05-11 12:15 ==
LOC: DI 11:57
PROVIDERS: PCP Family Medicine; Visit Provider Student in an Organized Health Care Education/Training Program
DX: Z96.651 Presence of right artificial knee joint (principal); Z47.1 Aftercare following joint replacement surgery
CPT/HCPCS: 73560

== ENCOUNTER 2024-06-08 12:15 | Outpatient (REF) | payer MEDICARE, BC, SELFPAY ==
[2024-06-08 14:46] LABS: Anion Gap 8.5 mmol/L (3-11); BUN 10 mg/dL (7-18); CO2 27.5 mmol/L (21.0-32.0); CREATININE 0.8 mg/dL (0.55-1.02); Calcium 8.7 mg/dL (8.5-10.1); Chloride 103 mmol/L (98-107); Estimated GFR 75.84 (mL/min/1.73m2); Glucose 99 mg/dL (74-106); Potassium 4.6 mmol/L (3.5-5.1); Sodium 139 mmol/L (136-145); TSH (W/Ref FT4) 0.96 uIU/mL (0.36-3.74)
== END 2024-06-08 12:16 | disposition home or self-care (01) ==
LOC: NCHCN 12:15
PROVIDERS: PCP Family Medicine; Visit Provider Family Medicine
DX: E03.9 Hypothyroidism, unspecified (principal); I10 Essential (primary) hypertension
CPT/HCPCS: 80048; 84443

== ENCOUNTER 2024-08-08 02:42 | Outpatient (CLI) | payer MEDICARE, BC, SELFPAY ==
--- NOTE | 2024-08-08 | DI.MAMMO_ITS ---
Exam(s) MAMMO SCREENING EXAM: MAMMO SCREENING CLINICAL HISTORY: SCREENING MAMMO Z12.39. TECHNIQUE: Bilateral full field digital CC and MLO mammographic images were obtained with 3D tomosyn thesis and utilizing computer aided detection (CAD). COMPARISON: Prior mammograms were reviewed. FINDINGS: There has been no significant change in the appearance and distribution of the fibroglandular tissue. There are no new spiculated masses nor malignant appearing microcalcification groups. There is no significant architectural distortion nor skin thickening-retraction. IMPRESSION: No radiographic evidence of malignancy. BI-RADS Category 1 - Negative Breast Density - Category C - Heterogeneously dense Breast density Category C or D implies that the patient has dense breast tissue. Dense breast tissue can make it harder to find cancer on a mammogram. Dense breast tissue is also associated with an incr eased risk of breast cancer. This information about the result of the mammogram report was provided to the patient to raise their awareness. Use this report when you speak with the patient about their risks for breast cancer, which includes their family history. At that time, you may recommend additional screening tests (Ultrasoun d or MRI) as these tests may add significant information. A negative radiographic report should not delay biopsy if a dominant or clinically suspicious mass is present. Up to ten percent of cancers are not identified on mammography. A negative report may reinforce clinical impression. Adenosis and dense breasts may obscure an underlying neoplasm. False positive reports average 6 to 10%. Patient will receive a letter notifying them of these results.
== END 2024-08-08 03:02 ==
LOC: DI 02:42
PROVIDERS: PCP Family Medicine; Visit Provider Family Medicine
DX: Z12.31 Encounter for screening mammogram for malignant neoplasm of breast (principal); R92.333 Mammographic heterogeneous density, bilateral breasts
CPT/HCPCS: 77063; 77067

== ENCOUNTER 2025-06-07 08:32 | Emergency (ER) | payer MEDICARE, BC, SELFPAY ==
[2025-06-07 08:42] VITALS: BP 161/81; PULSE 94; RESP 20; TEMP 36.8; O2SAT 97
--- NOTE | 2025-06-07 09:02 | W.ED.GENAD ---
Discharge Plan Disposition Patient Disposition: Home Condition: Stable Discharge Details Clinical Impression: Laceration of elbow, left, Fall Primary Care Provider: Flor Martin ED Provider: Ml Pearson Home Meds and New Rx's Prescriptions: Continued lisinopril 10 mg tablet 10 mg PO DAILY epinephrine 0.3 mg/0.3 mL auto-injector 0.3 mg IM ONCE Rx Instructions: as a single dose; may repeat once fluocinonide 0.05 % solution 1 applic topical DAILY mometasone 0.1 % solution 1 applic topical BID acetylcysteine 600 mg capsule 600 mg PO DAILY levothyroxine 75 mcg tablet 88 mcg PO DAILY ropinirole 2 mg tablet 2 mg PO HS Adult Probiotic 3 billion cell capsule 3,000 mmu cells PO DAILY Rx Instructions: administer with a meal clindamycin-benzoyl peroxide 1-5 % gel 1 applic topical DIRECTED PRN triamcinolone acetonide 0.1 % ointment 1 applic topical DAILY PRN grape seed extract 50 mg capsule 50 mg PO ONCE Rx Instructions: give with food (meal/snack) albuterol sulfate 90 mcg/actuation aerosol powdr breath activated 2 inh inhalation .Q2-4H PRN amitriptyline 10 mg tablet 20 mg PO HS duloxetine [Cymbalta] 20 mg capsule,delayed release(DR/EC) 40 mg PO DAILY fluticasone propion-salmeterol 250-50 mcg/dose blister with device 1 inh inhalation BID omeprazole 20 MG capsule,delayed release(DR/EC) 20 mg PO DAILY fluticasone propionate 16 GM spray,suspension 2 spry NS DAILY PRN Patient Comments: 01/03/15 per pt she uses mostly in the winter. jw Zyrtec 10 MG capsule 10 mg PO DAILY calcium citrate-vitamin D3 [Citracal + D Maximum] 1 EACH tablet 1 tab PO DAILY melatonin 5 mg Tablet 5 mg PO HS PRN methylphenidate HCl 5 mg tablet 5 mg PO DAILY PRN PRN Patient Comments: TAKE ONE TABLET BY MOUTH EVERY DAY NEEDED, TAKE PRIOR TO TASKS REQUIRING ATTENTION turmeric-turmeric ext-pepper 500-3 mg Capsule 2 cap PO DAILY Discharge Instructions Instructions: Laceration Repair With Stitches ED, Preventing Falls ED Additional Instructions: Please have the sutures removed in 7 to 10 days. You had 5 sutures placed. Please leave the area alone for the next 12 to 24 hours. After that you may wash under running soap and water daily. No soaking. Please allow to air dry at least 4 hours a day. Keep covered if it is going to rub on something or get dirty. Please return sooner for any signs of infection, red streaks, swelling drainage or concerns. The x-rays were within normal limits of the elbow and your pelvis. You may return here to have the sutures removed. Follow up with primary care provider in 3-5 days. Return to ED sooner if any worsening or concerns. Stand Alone Forms: Portal Information Referrals: Flor Martin MD [Primary Care Provider, Medicine] - Return if symptoms worsen Discharge Data Discharge Date/Time-TO BE ENTERED AT DEPARTURE: 06/07/25 10:36 HPI General Mode of arrival: ambulatory. Date/Time Provider Initiated Documentation: 06/07/25 08:41. Limitations to Documentation: no limitations. Information obtained by: patient, RN notes reviewed and old records reviewed. HPI Narrative: 79 year old female presents to the ER after a slip and fall on some ice this am. Fell onto her left elbow and left hip. She has a approximate 2 cm laceration to her left elbow, bleeding controlled upon arrival. Surrounding swelling and contusion. Denies any neck pain, no loss of consciousness did not hit her head. Has no other complaints at this time. Unknown when last tetanus vaccination was. She does take Advil on a daily basis. Denies any blood thinners or aspirin. Does have a history of heart murmur, mitral valve regurgitation, right sided sciatica, he osteoarthritis obstructive sleep apnea, GERD, hypothyroidism, fibromyalgia anxiety and depression. Related Data Home Medications ?Medication ?Instructions ?Recorded ?Confirmed cetirizine 10 mg capsule (Zyrtec) 10 mg PO DAILY 11/16/13 06/07/25 fluticasone propionate 50 2 spry NS DAILY PRN 11/16/13 06/07/25 mcg/actuation nasal spray,suspension omeprazole 20 mg capsule,delayed 20 mg PO DAILY 11/16/13 06/07/25 release calcium 315 mg (as 1 tab PO DAILY 01/03/15 06/07/25 citrate)-vitamin D3 6.25 mcg (250 unit) tablet (Citracal + Vitamin D Maximum) lactobacillus combination no.8 3 3,000 mmu cells PO DAILY 05/29/20 06/07/25 billion cell capsule (Adult Probiotic) levothyroxine 75 mcg tablet 88 mcg PO DAILY 05/29/20 06/07/25 ropinirole 2 mg tablet 2 mg PO HS 05/29/20 06/07/25 lisinopril 10 mg tablet 10 mg PO DAILY 07/22/21 06/07/25 methylphenidate HCl 5 mg tablet 5 mg PO DAILY PRN PRN 07/04/22 06/07/25 turmeric 500 mg-black pepper 2 cap PO DAILY 07/04/22 06/07/25 extract 3 mg capsule melatonin 5 mg tablet 5 mg PO HS PRN 08/06/22 06/07/25 acetylcysteine 600 mg capsule 600 mg PO DAILY 08/17/22 06/07/25 epinephrine 0.3 mg/0.3 mL 0.3 mg IM ONCE 08/17/22 06/07/25 injection, auto-injector fluocinonide 0.05 % topical 1 applic topical DAILY 08/17/22 06/07/25 solution mometasone 0.1 % topical solution 1 applic topical BID 08/17/22 06/07/25 clindamycin 1 %-benzoyl peroxide 5 1 applic topical DIRECTED PRN 11/30/22 06/07/25 % topical gel grape seed extract 50 mg capsule 50 mg PO ONCE 11/30/22 06/07/25 triamcinolone acetonide 0.1 % 1 applic topical DAILY PRN 11/30/22 06/07/25 topical ointment albuterol sulfate 90 mcg/actuation 2 inh inhalation .Q2-4H PRN 09/22/23 06/07/25 breath activated powder inhaler amitriptyline 10 mg tablet 20 mg PO HS 09/22/23 06/07/25 duloxetine 20 mg capsule,delayed 40 mg PO DAILY 09/22/23 06/07/25 release (Cymbalta) fluticasone 250 mcg-salmeterol 50 1 inh inhalation BID 09/22/23 06/07/25 mcg/dose blistr powdr for inhalation Allergies Allergy/AdvReac Type Severity Reaction Status Date / Time latex Allergy Severe Anaphylaxsi Unverified 04/19/24 13:37 s rubber, unspecified Allergy Severe Anaphylaxis Verified 04/19/24 13:37 General Stated Complaint: Fall/Non TraumaCriteria SHASTA: 3 Review of Systems All systems reviewed & are unremarkable except as noted in HPI and below Integumentary/Breasts Skin/Breast: Reports as per HPI and Reports wounds (Laceration left elbow) Exam Const General: cooperative, healthy appearing, well developed and well groomed Nutritional Appearance: thin Orientation: alert, awake and oriented x3 Resp Effort & Inspection: normal respiratory effort and able to speak in complete sentences Auscultation: clear to auscultation bilaterally Cardio Heart Sounds: S1 normal and S2 normal Back/Spine/Pelvis Back: no CVA tenderness Cervical Spine: normal cervical lordosis Thoracic/Lumbar Spine: thoracic and lumbar spine normal to inspection Extrem Left upper extremity: elbow/forearm Details: laceration elbow proximal medial Details: linear, flap, superficial, with motor nerve function intact and with sensation intact Elbow/forearm/wrist images:  1. Approximately 2 cm laceration noted with surrounding contusion and swelling Course Vital Signs Vital signs: Vital Signs Temperature 36.8 C 06/07/25 08:42 Pulse 94 H 06/07/25 08:42 Respiratory Rate 20 06/07/25 08:42 Blood Pressure 161/81 H 06/07/25 08:42 Pulse Oximetry 97 06/07/25 08:42 Temperature 36.8 C 06/07/25 08:42 Temperature Source Oral 06/07/25 08:42 Pulse 94 H 06/07/25 08:42 Respiratory Rate 20 06/07/25 08:42 Blood Pressure 161/81 H 06/07/25 08:42 Pulse Oximetry 97 06/07/25 08:42 Oxygen Delivery Method Room Air 06/07/25 08:42 Oxygen Flow Rate 0 06/07/25 08:42 Procedure Laceration Laceration 1: Date of Procedure: 06/07/25 Time of procedure: 10:17 Provider that performed the procedure: Ml Clements Time Out Performed: Yes Patient Consented: Verbally Site: upper extremity (Elbow) Side (If applicable): left Description: linear Depth: simple, single layer Local anesthetic: Lidocaine 1%, with Epi and LET(lidocaine epinephrine tetracaine) Amount of anesthesia used (mL): 4 Pre-repair:: wound explored, irrigated extensively and deep structures intact Skin layer closed with: nylon Suture size: 4-0 Number of sutures:: 5 Technique: simple, interrupted Procedure Description/Note: Laceration anesthetized with 1% lidocaine with epi after let placement, irrigated with sterile saline and scrubbed with chlorhexidine. Patient tolerated well. Wound was repaired with number five 4.0 Ethilon sutures, wound well-approximated. Instructed patient to have them removed in 7 to 10 days. Medical Decision Making 79 year old female presents to the ER after a slip and fall on some ice this am. Fell onto her left elbow and left hip. She has a approximate 2 cm laceration to her left elbow, bleeding controlled upon arrival. Surrounding swelling and contusion. Denies any neck pain, no loss of consciousness did not hit her head. Has no other complaints at this time. Unknown when last tetanus vaccination was. She does take Advil on a daily basis. Denies any blood thinners or aspirin. X-ray of left elbow and left hip ordered. Topical let wound care Tdap booster, and will plan on placing sutures. Please see procedure note, wound was cleaned and then incised and repaired with 5 simple interrupted sutures. Wound was well-approximated. Dressing was applied by nurse staff post procedure. Discussed home care instructions and to have sutures removed in 7 to 10 days. Patient verbalized understanding. This text was generated using [employer] dictation system, please disregard any oddities of phrase or misspellings. PFSH All Active Problems (Updated 06/07/25 @ 10:21 by lM Pearson NP) Fall (Acute) Laceration of elbow, left (Acute) Patellar tendinitis, right knee (Acute) Postnasal drip (Acute) Pes anserinus bursitis of right knee (Acute) Physical deconditioning (Acute) Left knee DJD (Acute) Chronic sinusitis (Acute) Hammertoe (Acute) Bunion (Acute) Nail dystrophy (Acute) Corns and callosities (Acute) History of total left hip arthroplasty (Acute 08/06/22) Blunt head trauma (Acute) History of total right knee replacement (Acute 04/22/21) DOS 04/22/21 Encounter for colorectal cancer screening (Acute) Trochanteric bursitis of left hip (Acute) Right lumbar radiculitis (Chronic) Bursitis, prepatellar, left (Acute) Medical History History of Clostridioides difficile colitis Heart murmur Mitral valve regurgitation Right sided sciatica Dysphonia Senile osteopenia Osteoarthritis Chronic fatigue syndrome Periodic limb movement disorder residential (current) use of non-steroidal anti-inflammatories (nsaid) Tinea pedis Pain of right sacroiliac joint Pain, joint, shoulder, right Hypertension Neck pain Osteopenia Bronchospasm Sinusitis Restless leg Fatigue ROBINSON (obstructive sleep apnea) History of cystocele Fibrocystic breast changes GERD (gastroesophageal reflux disease) Acne vulgaris ADHD Hx of ovarian cancer 1983 Arthritis of both hands Impaired fasting glucose Hypothyroidism Fibromyalgia Eczema Depression Chronic cough Anxiety Hoarseness Sciatica Surgical History Cystocele with rectocele 11/26/2004 History of hip surgery left hip cannulated screw internal fixation 07/05/2022 Normal colonoscopy (~10/2020) History of arthroscopy of right knee 03/2021 History of cataract extraction Right wrist fracture s/p 3 surgeries including external fixation, and ORIF. History of hysterectomy FABIEN-BSO ovarian CA Family History Father , 83 Diabetes Bladder cancer Mother Stroke Paternal Grandmother Angina at rest Social History Smoking/Tobacco Use Status: Never Smoking risk assessment performed?: Yes Alcohol Intake: current Alcohol Intake frequency: 3 or more drinks per day Alcohol type: wine Drug use: Never Substance use type: does not use Current gender identity: female Do you feel safe at home: Yes Do you feel safe in your relationship?: Yes
[2025-06-07] MEDS: Diph,Pertuss(Acell),Tet Vac/Pf 0.5 ML SYR IM (09:19)
[2025-06-07] MEDS: Lidocaine 1% Pres-Free W/EPI 1/200,000 30 ML VIAL IJ (09:19)
[2025-06-07] MEDS: Lidocaine/Epinephri/Tetracaine Topical Gel 3 ML TP (09:19)
--- NOTE | 2025-06-07 09:43 | DI.RAD_ITS ---
Exam(s) XR ELBOW LT COMPLETE EXAM: XR ELBOW LT COMPLETE CLINICAL HISTORY: Trauma, Fall. TECHNIQUE: 2D digital imaging was performed. Three views. COMPARISON: No exams were available for comparison FINDINGS: BONES: No acute fracture is present. No bony destructive lesion is seen. JOINTS: The elbow is normally aligned. No joint effusion is seen. Joint spaces are maintained. SOFT TISSUE: Mild posterior soft tissue swelling. Faint calcification in the distal triceps tendon. IMPRESSION: No evidence of fracture or joint effusion. Mild posterior soft tissue swelling. DATA REPOSITORY: RADIATION DOSE DELIVERED:
--- NOTE | 2025-06-07 09:44 | DI.RAD_ITS ---
Exam(s) XR PELVIS AP EXAM: XR PELVIS AP CLINICAL HISTORY: Left hip pain, fall. TECHNIQUE: 2D digital imaging was performed. Single AP view. COMPARISON: CR XR HIP LT COMPLETE AP PELVIS from 08/16/2022 FINDINGS: BONES: No acute fracture is present. No bony destructive lesion is seen. JOINTS: Stable appearance of left hip prosthesis. No dislocation present. No joint space narrowing is present. SOFT TISSUE: Normal. Surgical clips in pelvis. IMPRESSION: No acute abnormality. DATA REPOSITORY: RADIATION DOSE DELIVERED:
== END 2025-06-07 10:36 | disposition home or self-care (01) ==
PROVIDERS: Emergency Provider Registered Nurse Emergency; PCP Family Medicine
DX: S51.012A Laceration without foreign body of left elbow, initial encounter (principal); Z23 Encounter for immunization; W00.0XXA Fall on same level due to ice and snow, initial encounter
CPT/HCPCS: 99283; 99284; 12001; 90715; 72170; 73080; J2004